=== PATIENT | male | born 1970 | race Hispanic/Latino ===

== ENCOUNTER 2024-03-29 09:32 | Inpatient (IN) | payer OTHER ==
[~2024-03-29] VITALS: Ht 162.6 cm; Wt 61.7 kg
[2024-03-29 10:14] LABS: BASOPHILS # (AUTO) 0.05 K/uL (0.00-0.20); BASOPHILS % (AUTO) 0.4 % (0.0-5.0); EOSINOPHILS # (AUTO) 0.08 K/uL (0.00-0.70); EOSINOPHILS % (AUTO) 0.7 % (0.0-8.0); HEMATOCRIT 35.8 % (42-54); IMMATURE GRANULOCYTE ABSOLUTE 0.05 K/uL (0-1); MEAN CORPUSCULAR HEMOGLOBIN 30.3 pg (27.0-33.0); MEAN CORPUSCULAR HGB CONC 33.8 g/dL (32.0-36.0); MEAN CORPUSCULAR VOLUME 89.5 fL (79-99); MONOCYTES % (AUTO) 8.4 % (3.0-13.0); NEUTROPHILS # (AUTO) 9.8 K/uL (1.8-7.7); NEUTROPHILS % (AUTO) 82.1 % (40.0-77.0); PLATELET COUNT (AUTO) 298 K/uL (130-400); RED CELL DISTRIBUTION WIDTH 12.1 % (11.0-15.5)
[2024-03-29] MEDS: CEFTRIAXONE 1G VIAL IVPB ONE (10:20)
[2024-03-29] MEDS: VANCOMYCIN 1G/250ML KIT 250 ML IV ONE (10:20)
[2024-03-29] MEDS: 0.9%NACL 1000ML 1,500 ML IV ONE (10:21)
[2024-03-29 10:31] LABS: CREATININE 1.1 mg/dL (0.5-1.3); POTASSIUM 4.1 mmol/L (3.5-5.1)
[2024-03-29 10:36] LABS: ALBUMIN 2.9 g/dL (3.5-5.0); BILIRUBIN,TOTAL 0.5 mg/dL (0.2-1.0); TOTAL PROTEIN, SERUM 7.9 g/dL (6.0-8.3)
[2024-03-29 10:53] LABS: APPEARANCE,URINE CLEAR (CLEAR); BILIRUBIN,URINE NEGATIVE (NEGATIVE); COLOR,URINE LIGHT-YELLOW (YELLOW); GLUCOSE, URINE (UA) >=1000 mg/dL (NEGATIVE); KETONES,URINE 5 mg/dL (NEGATIVE); LEUKOCYTE ESTERASE ,URINE NEGATIVE Leu/uL (NEGATIVE); NITRATE,URINE NEGATIVE (NEGATIVE); OCCULT BLOOD,URINE NEGATIVE (NEGATIVE); PH,URINE 6.5 (5.0-8.0); PROTEIN,URINE 10 mg/dL (NEGATIVE); UROBILINOGEN,URINE 0.2 mg/dL (0.2-1.0)
[2024-03-29 10:54] LABS: ADD UA MICROSCOPIC YES
[2024-03-29 11:02] LABS: RBC,URINE 0-1 /HPF (0-1); SQUAMOUS EPITHELIAL CELL,UR RARE /HPF (0-2); WBC,URINE 0-1 /HPF (0-1)
[2024-03-29] MEDS: TETANUS/DIPHTHERIA TOXOID [ADULT] 0.5 ML VIAL IM ONE (11:11)
[2024-03-29] MEDS: INSULIN GLARGINE 100 UNITS/ML 10 ML VIAL SQ ONE (11:22)
[2024-03-29] MEDS ORDERED: ACETAMINOPHEN WITH CODEINE 1 TAB TAB PO PRN (11:30)
[2024-03-29] MEDS ORDERED: CHLORDIAZEPOXIDE HCL 25 MG CAP PO PRN (11:30)
[2024-03-29] MEDS ORDERED: VANCOMYCIN PROTOCOL PER PHARMACY IV SCH ×2 (11:30)
[2024-03-29] MEDS ORDERED: PHARMACY COMMUNICATION MISC PRN (11:30)
[2024-03-29] MEDS ORDERED: ONDANSETRON 4MG INJ IVP PRN (12:30)
[2024-03-29 12:32] LABS: INR 1.01 (0.85-1.15); PROTHROMBIN TIME 10.9 SEC (9.6-11.6)
[2024-03-29 12:34] LABS: PARTIAL THROMBOPLASTIN TIME 29.5 SEC (26.3-35.5)
[2024-03-29] MEDS: CEFEPIME HCL 2 GM VIAL IVPB SCH (12:35)
[2024-03-29] MEDS: 0.9%NACL 1000ML 1,000 ML IV SCH (12:35)
[2024-03-29] MEDS: INSULIN HUMULIN R 100 UNIT/ML 3ML SQ SCH (12:36)
[2024-03-29 12:54] LABS: THYROID STIMULATING HORMONE 4.35 uIU/mL (0.36-3.74)
[2024-03-29] MEDS ORDERED: HYDRALAZINE 20MG/ML VIAL IV PRN (13:00)
[2024-03-29 13:20] LABS: HEMOGLOBIN A1C 9.7 % (4.0-6.0)
[2024-03-29] MEDS: LORAZEPAM 2 MG/ML 1 ML VIAL IVP PRN (13:26)
[2024-03-29 13:56] LABS: AMPHET/METH SCREEN,URINE NEGATIVE (NEGATIVE); BARBITURATE SCREEN, URINE NEGATIVE (NEGATIVE); BENZODIAZEPINES SCREEN,URINE NEGATIVE (NEGATIVE); CANNABINOID SCREEN,URINE NEGATIVE (NEGATIVE); COCAINE SCREEN,URINE NEGATIVE (NEGATIVE); OPIATE SCREEN,URINE NEGATIVE (NEGATIVE); PHENCYCLIDINE SCREEN,URINE NEGATIVE (NEGATIVE)
[2024-03-29 14:00] VITALS: BP 143/85; PULSE 77; RESP 18
[2024-03-29] MEDS: METRONIDAZOLE 500MG/100ML BAG 100 ML IVPB SCH (14:58)
[2024-03-29 16:00] VITALS: BP 154/63; PULSE 85; RESP 18
[2024-03-29] MEDS: AMLODIPINE 5 MG TAB PO SCH (17:21)
[2024-03-29 17:47] LABS: SARS-CoV-2, RNA, NAAT NEGATIVE SARS CoV-2 (NEGATIVE)
[2024-03-29 17:52] LABS: INFLUENZA TYPE A Negative For Type A (NEGATIVE); INFLUENZA TYPE B Negative For Type B (NEGATIVE)
[2024-03-29 18:35] VITALS: O2SAT 96
[2024-03-29 20:00] VITALS: BP 123/69; PULSE 73; RESP 19; O2SAT 96
[2024-03-29] MEDS: FAMOTIDINE 20MG TAB PO SCH (20:11)
[2024-03-29] MEDS: ACETAMINOPHEN 500 MG TABLET PO PRN (20:12)
[2024-03-29] MEDS: VANCOMYCIN 1G/250ML KIT 250 ML IV SCH (22:06)
[2024-03-29] MEDS: KETOROLAC 15MG/ML VIAL (15MG/ML) IV PRN (23:50)
[2024-03-30] VITALS (8 sets, daily range): BP systolic 114–142; BP diastolic 61–85; PULSE 61–84; RESP 14–19; O2SAT 98
[2024-03-30] MEDS: FOLIC ACID 1 MG TABLET PO SCH (08:38)
[2024-03-30] MEDS: INSULIN GLARGINE 100 UNITS/ML 10 ML VIAL SQ SCH (08:44)
[2024-03-30 09:34] LABS: BASOPHILS # (AUTO) 0.05 K/uL (0.00-0.20); BASOPHILS % (AUTO) 0.5 % (0.0-5.0); EOSINOPHILS # (AUTO) 0.13 K/uL (0.00-0.70); EOSINOPHILS % (AUTO) 1.4 % (0.0-8.0); HEMATOCRIT 34.7 % (42-54); IMMATURE GRANULOCYTE ABSOLUTE 0.04 K/uL (0-1); LYMPHOCYTES % (AUTO) 10.6 % (21.0-51.0); MEAN CORPUSCULAR HGB CONC 32.6 g/dL (32.0-36.0); MONOCYTES # (AUTO) 1.2 K/uL (0.1-1.0); MONOCYTES % (AUTO) 12.4 % (3.0-13.0); NEUTROPHILS # (AUTO) 7.1 K/uL (1.8-7.7); NEUTROPHILS % (AUTO) 74.7 % (40.0-77.0); PLATELET COUNT (AUTO) 257 K/uL (130-400); RED BLOOD CELL COUNT(AUTO) 3.77 MIL/uL (4.50-6.20); RED CELL DISTRIBUTION WIDTH 12.2 % (11.0-15.5); WHITE BLOOD COUNT (AUTO) 9.5 K/uL (4.8-10.8)
[2024-03-30 09:56] LABS: ALBUMIN 2.4 g/dL (3.5-5.0); BILIRUBIN,TOTAL 0.3 mg/dL (0.2-1.0); MAGNESIUM 1.5 mg/dL (1.80-2.40); POTASSIUM 4.1 mmol/L (3.5-5.1)
[2024-03-30] MEDS: MORPHINE 2 MG SYG IVP PRN (14:49)
[2024-03-30] MEDS: ACETAMINOPHEN 325 MG TAB PO PRN (21:00)
[2024-03-31] VITALS (23 sets, daily range): BP systolic 99–151; BP diastolic 45–88; PULSE 68–98; RESP 16–19; O2SAT 97–98
[2024-03-31 04:37] LABS: BASOPHILS # (AUTO) 0.06 K/uL (0.00-0.20); BASOPHILS % (AUTO) 0.5 % (0.0-5.0); EOSINOPHILS # (AUTO) 0.13 K/uL (0.00-0.70); EOSINOPHILS % (AUTO) 1.2 % (0.0-8.0); HEMATOCRIT 34.5 % (42-54); IMMATURE GRANULOCYTE ABSOLUTE 0.04 K/uL (0-1); LYMPHOCYTES # (AUTO) 1.3 K/uL (1.0-4.8); LYMPHOCYTES % (AUTO) 11.9 % (21.0-51.0); MEAN CORPUSCULAR HGB CONC 32.8 g/dL (32.0-36.0); MEAN CORPUSCULAR VOLUME 88.7 fL (79-99); MONOCYTES # (AUTO) 1.7 K/uL (0.1-1.0); NEUTROPHILS # (AUTO) 7.9 K/uL (1.8-7.7); PLATELET COUNT (AUTO) 299 K/uL (130-400); RED BLOOD CELL COUNT(AUTO) 3.89 MIL/uL (4.50-6.20); RED CELL DISTRIBUTION WIDTH 12.2 % (11.0-15.5); WHITE BLOOD COUNT (AUTO) 11.1 K/uL (4.8-10.8)
[2024-03-31 04:46] LABS: INR 1.07 (0.85-1.15); PROTHROMBIN TIME 11.5 SEC (9.6-11.6)
[2024-03-31 04:47] LABS: MAGNESIUM 1.5 mg/dL (1.80-2.40); PHOSPHORUS 3.8 mg/dL (2.5-4.9); POTASSIUM 3.7 mmol/L (3.5-5.1)
[2024-03-31] MEDS: DEXTROSE 50%-WATER 50 ML DISP.SYRIN IV ONE (05:57)
[2024-03-31] MEDS ORDERED: GLUCAGON 1MG KIT 1 MG ML IM PRN (06:00)
[2024-03-31] MEDS: DEXTROSE 50%-WATER 50 ML DISP.SYRIN IV PRN (12:41)
[2024-03-31] MEDS: 0.9%NACL 1000ML 1,000 ML IV ONE (12:41)
[2024-03-31] MEDS ORDERED: LIDOCAINE HCL 1% 20 ML VIAL ONE (12:52)
[2024-03-31] MEDS ORDERED: FENTANYL CITRATE PF 50 MCG/1 ML 2ML VIAL ONE ×2 (12:52→13:13)
[2024-03-31] MEDS ORDERED: MIDAZOLAM HCL 1 MG/ML 2ML VIAL ONE (12:52)
[2024-03-31] MEDS ORDERED: BUPIVACAINE/PF 0.25% 30ML VIAL IJ ONE (12:52)
[2024-03-31] MEDS ORDERED: PROPOFOL 10 MG/ML 20ML VIAL IV ONE (12:53)
[2024-03-31] MEDS: LIDOCAINE HCL 1% 20 ML VIAL INJ ONE (13:08)
[2024-04-01] VITALS (7 sets, daily range): BP systolic 125–132; BP diastolic 66–77; PULSE 75–83; RESP 18–20; O2SAT 97–99
[2024-04-01 05:47] LABS: BASOPHILS # (AUTO) 0.06 K/uL (0.00-0.20); BASOPHILS % (AUTO) 0.5 % (0.0-5.0); EOSINOPHILS % (AUTO) 1.8 % (0.0-8.0); HEMATOCRIT 31.3 % (42-54); IMMATURE GRANULOCYTE ABSOLUTE 0.05 K/uL (0-1); LYMPHOCYTES # (AUTO) 1.3 K/uL (1.0-4.8); LYMPHOCYTES % (AUTO) 11.2 % (21.0-51.0); MEAN CORPUSCULAR HEMOGLOBIN 29.6 pg (27.0-33.0); MEAN CORPUSCULAR HGB CONC 33.2 g/dL (32.0-36.0); MEAN CORPUSCULAR VOLUME 89.2 fL (79-99); MONOCYTES # (AUTO) 1.9 K/uL (0.1-1.0); NEUTROPHILS # (AUTO) 7.8 K/uL (1.8-7.7); NEUTROPHILS % (AUTO) 69.1 % (40.0-77.0); PLATELET COUNT (AUTO) 288 K/uL (130-400); RED BLOOD CELL COUNT(AUTO) 3.51 MIL/uL (4.50-6.20); RED CELL DISTRIBUTION WIDTH 12.4 % (11.0-15.5); WHITE BLOOD COUNT (AUTO) 11.3 K/uL (4.8-10.8)
[2024-04-01 06:30] LABS: ALBUMIN 2.2 g/dL (3.5-5.0); BILIRUBIN,TOTAL 0.3 mg/dL (0.2-1.0); MAGNESIUM 1.5 mg/dL (1.80-2.40); POTASSIUM 3.6 mmol/L (3.5-5.1); TOTAL PROTEIN, SERUM 6.7 g/dL (6.0-8.3)
[2024-04-01] MEDS ORDERED: MAGNESIUM 2GM PREMIX 50ML 50 ML IV SCH (09:30)
[2024-04-01] MEDS: MAGNESIUM 2GM PREMIX 50ML 50 ML IV SCH (11:34)
[2024-04-01] MEDS: LEVOFLOXACIN 750 MG TABLET PO SCH (14:26)
[2024-04-01] MEDS ORDERED: POTASSIUM CHLORIDE 20MEQ/100ML 100 ML IV PRN (17:00)
[2024-04-01] MEDS ORDERED: POTASSIUM CHLORIDE 10% ELIXIR 20 MEQ/15 ML UDCUP PO PRN (17:00)
[2024-04-01] MEDS: KCL 20 MEQ ERTAB PO PRN (17:28)
[2024-04-01] MEDS ORDERED: VANCOMYCIN 1G/250ML KIT 250 ML IV SCH (22:00)
[2024-04-02] VITALS (17 sets, daily range): BP systolic 104–142; BP diastolic 67–90; PULSE 71–87; RESP 16–20; TEMP 99.1; O2SAT 98–99
[2024-04-02] MEDS: VANCOMYCIN 1G/250ML KIT 250 ML IV ONE ×2 (00:16→00:21)
[2024-04-02] MEDS ORDERED: VANCOMYCIN KIT 1 GM/250 ML IV.KIT IV SCH (00:30)
[2024-04-02 05:35] LABS: BASOPHILS # (AUTO) 0.06 K/uL (0.00-0.20); BASOPHILS % (AUTO) 0.5 % (0.0-5.0); EOSINOPHILS # (AUTO) 0.16 K/uL (0.00-0.70); EOSINOPHILS % (AUTO) 1.3 % (0.0-8.0); IMMATURE GRANULOCYTE ABSOLUTE 0.07 K/uL (0-1); LYMPHOCYTES % (AUTO) 7.7 % (21.0-51.0); MEAN CORPUSCULAR HEMOGLOBIN 29.9 pg (27.0-33.0); MEAN CORPUSCULAR VOLUME 90.7 fL (79-99); MONOCYTES # (AUTO) 1.3 K/uL (0.1-1.0); MONOCYTES % (AUTO) 10.6 % (3.0-13.0); NEUTROPHILS # (AUTO) 9.8 K/uL (1.8-7.7); NEUTROPHILS % (AUTO) 79.3 % (40.0-77.0); PLATELET COUNT (AUTO) 312 K/uL (130-400); RED BLOOD CELL COUNT(AUTO) 3.64 MIL/uL (4.50-6.20); RED CELL DISTRIBUTION WIDTH 12.4 % (11.0-15.5); WHITE BLOOD COUNT (AUTO) 12.4 K/uL (4.8-10.8)
[2024-04-02 06:02] LABS: ALBUMIN 2.3 g/dL (3.5-5.0); BILIRUBIN,TOTAL 0.3 mg/dL (0.2-1.0); CREATININE 0.9 mg/dL (0.5-1.3); MAGNESIUM 1.9 mg/dL (1.80-2.40); POTASSIUM 3.9 mmol/L (3.5-5.1); TOTAL PROTEIN, SERUM 7.3 g/dL (6.0-8.3)
[2024-04-02] MEDS: ASPIRIN 81MG CHEW TAB PO ONE (10:56)
[2024-04-02] MEDS: INSULIN GLARGINE 100 UNITS/ML 10 ML VIAL SQ ONE (11:00)
[2024-04-02] MEDS ORDERED: LIDOCAINE HCL 400MG/20ML VIAL ONE (12:14)
[2024-04-02] MEDS ORDERED: NITROGLYCERIN 50MG VIAL ONE (12:15)
[2024-04-02] MEDS ORDERED: MIDAZOLAM HCL 1 MG/ML 2ML VIAL ONE (12:15)
[2024-04-02] MEDS ORDERED: IODIXANOL 320 MG/ML 100 ML VIAL ONE (12:20)
[2024-04-02] MEDS ORDERED: NICARDIPINE 25MG INJ IV ONE (12:25)
[2024-04-02] MEDS ORDERED: HEPARIN 10,000 UNIT/10ML (1,000 UNIT/ML) VIAL ONE (12:28)
[2024-04-02] MEDS ORDERED: FENTANYL CITRATE PF 50 MCG/1 ML 2ML VIAL ONE (12:31)
[2024-04-02] MEDS ORDERED: CLOPIDOGREL 300MG TAB ONE (13:47)
[2024-04-02] MEDS ORDERED: GLUCAGON 1MG KIT 1 MG ML IM PRN (14:00)
[2024-04-02] MEDS ORDERED: DEXTROSE 50%-WATER 50 ML DISP.SYRIN IV PRN (14:00)
[2024-04-02] MEDS: 0.9%NACL 1000ML 1,000 ML IV SCH (14:50)
[2024-04-02] MEDS: METRONIDAZOLE 500 MG TABLET PO SCH (14:57)
[2024-04-02] MEDS: LACTULOSE 20 GM/30 ML UDCUP PO ONE (18:32)
[2024-04-02] MEDS: ATORVASTATIN 40 MG TABLET PO SCH (20:10)
[2024-04-03] VITALS (8 sets, daily range): BP systolic 110–146; BP diastolic 53–81; PULSE 72–79; RESP 12–16; O2SAT 99–100
[2024-04-03 05:38] LABS: HEMATOCRIT 31.5 % (42-54); MEAN CORPUSCULAR HGB CONC 33.7 g/dL (32.0-36.0); MEAN CORPUSCULAR VOLUME 89.2 fL (79-99); RED BLOOD CELL COUNT(AUTO) 3.53 MIL/uL (4.50-6.20); RED CELL DISTRIBUTION WIDTH 12.5 % (11.0-15.5); WHITE BLOOD COUNT (AUTO) 16.9 K/uL (4.8-10.8)
[2024-04-03 05:56] LABS: ALBUMIN 2.2 g/dL (3.5-5.0); BILIRUBIN,TOTAL 0.4 mg/dL (0.2-1.0); MAGNESIUM 1.9 mg/dL (1.80-2.40); POTASSIUM 3.8 mmol/L (3.5-5.1); TOTAL PROTEIN, SERUM 7.2 g/dL (6.0-8.3)
[2024-04-03] MEDS: ASPIRIN 81MG CHEW TAB PO SCH (09:16)
[2024-04-03] MEDS: CLOPIDOGREL 75MG TAB PO SCH (09:16)
[2024-04-03] MEDS: INSULIN GLARGINE 100 UNITS/ML 10 ML VIAL SQ SCH (09:22)
[2024-04-03] MEDS: MAGNESIUM 2GM PREMIX 50ML 50 ML IV SCH (10:13)
[2024-04-04 03:00] VITALS: BP 103/58; PULSE 67; RESP 14
[2024-04-04 04:06] LABS: HEMATOCRIT 32.5 % (42-54); MEAN CORPUSCULAR HEMOGLOBIN 29.4 pg (27.0-33.0); MEAN CORPUSCULAR HGB CONC 34.2 g/dL (32.0-36.0); MEAN CORPUSCULAR VOLUME 86.2 fL (79-99); RED BLOOD CELL COUNT(AUTO) 3.77 MIL/uL (4.50-6.20); RED CELL DISTRIBUTION WIDTH 12.4 % (11.0-15.5); WHITE BLOOD COUNT (AUTO) 13.7 K/uL (4.8-10.8)
[2024-04-04 04:26] LABS: ALBUMIN 2.3 g/dL (3.5-5.0); BILIRUBIN,TOTAL 0.3 mg/dL (0.2-1.0); POTASSIUM 4.3 mmol/L (3.5-5.1); TOTAL PROTEIN, SERUM 7.5 g/dL (6.0-8.3)
[2024-04-04 07:30] VITALS: O2SAT 98
[2024-04-04 07:52] VITALS: BP 109/70; PULSE 74; RESP 18
[2024-04-04 11:18] VITALS: BP 93/68; PULSE 84; RESP 19
[2024-04-04] MEDS ORDERED: AMLO5TAB4 PO (12:25)
[2024-04-04] MEDS ORDERED: ASPI-1005 PO (12:25)
[2024-04-04] MEDS ORDERED: ATOR40TA69 PO (12:25)
[2024-04-04] MEDS ORDERED: CLOP-31 PO (12:25)
[2024-04-04] MEDS ORDERED: GLIP-162 PO (12:26)
[2024-04-04] MEDS ORDERED: METF-444 PO (12:26)
== END 2024-04-04 16:45 | disposition home or self-care (01) | DRG 279 ==
LOC: EDH 09:32 → EDHIP 11:12 → UNDOADMIN 11:12 → EDHIP 11:13 → 3CH 14:00 → EDHIP 14:00
PROVIDERS: ADMIT Internal Medicine; ATTEND Internal Medicine
PROC: B41D1ZZ Fluoroscopy of Aorta and Bilateral Lower Extremity Arteries using Low Osmolar Contrast (ICD-10-PCS; 2024-03-31)
PROC: 0Y6V0Z0 Detachment at Right 4th Toe, Complete, Open Approach (ICD-10-PCS; principal; 2024-03-31 13:03)
PROC: 04FP3ZZ Fragmentation of Right Anterior Tibial Artery, Percutaneous Approach (ICD-10-PCS; 2024-04-02)
PROC: 047P3ZZ Dilation of Right Anterior Tibial Artery, Percutaneous Approach (ICD-10-PCS; 2024-04-02)
DX: E11.52 Type 2 diabetes mellitus with diabetic peripheral angiopathy with gangrene (principal); E87.1 Hypo-osmolality and hyponatremia; M86.8X7 Other osteomyelitis, ankle and foot; L03.115 Cellulitis of right lower limb; I96 Gangrene, not elsewhere classified; L03.031 Cellulitis of right toe; Z20.822 Contact with and (suspected) exposure to COVID-19; E11.65 Type 2 diabetes mellitus with hyperglycemia; I10 Essential (primary) hypertension; E11.621 Type 2 diabetes mellitus with foot ulcer; E11.628 Type 2 diabetes mellitus with other skin complications; E78.5 Hyperlipidemia, unspecified; E83.42 Hypomagnesemia; E87.6 Hypokalemia; F10.10 Alcohol abuse, uncomplicated; L97.519 Non-pressure chronic ulcer of other part of right foot with unspecified severity; Z83.3 Family history of diabetes mellitus; Z87.891 Personal history of nicotine dependence; Z91.199 Patient's noncompliance with other medical treatment and regimen due to unspecified reason
CPT/HCPCS: 36415; 71045; 73660; 73718; 75716; 75774; 80048; 80053; 80061; 80202; 80305; 81001; 82010; 82550; 82948; 83036; 83605; 83735; 84100; 84145; 84443; 85025; 85027; 85610; 85651; 85730; 86140; 87040; 87070; 87076; 87086; 87186; 87205; 87635; 87804; 90471; 90714; 93926; 96365; 96372; 99156; 99157; C1760; C1769; C1893; C1894; C9772; G0378; J0692; J0696; J1644; J1815; J1885; J2060; J2250; J2270; J2704; J3010; J3370; J3475; J3490; J7030; J7070; Q9967; A4216; A4222; A4223; A4649; A6446; C1725; C1887; J0665

== ENCOUNTER 2024-04-21 10:31 | Inpatient (IN) | payer OTHER ==
[~2024-04-21] VITALS: Ht 160 cm; Wt 63.5 kg
[~2024-04-21 10:31] MED LIST: AMLO5TAB4 PO; ASPI-1005 PO; ATOR40TA69 PO; CLOP-31 PO; GLIP-162 PO; METF-444 PO
[2024-04-21 11:55] LABS: BASOPHILS # (AUTO) 0.01 K/uL (0.00-0.20); BASOPHILS % (AUTO) 0.3 % (0.0-5.0); EOSINOPHILS # (AUTO) 0.14 K/uL (0.00-0.70); EOSINOPHILS % (AUTO) 4.4 % (0.0-8.0); HEMATOCRIT 33.2 % (42-54); IMMATURE GRANULOCYTE ABSOLUTE 0.01 K/uL (0-1); LYMPHOCYTES # (AUTO) 1.2 K/uL (1.0-4.8); LYMPHOCYTES % (AUTO) 36.5 % (21.0-51.0); MEAN CORPUSCULAR HGB CONC 34.6 g/dL (32.0-36.0); MEAN CORPUSCULAR VOLUME 83.6 fL (79-99); MONOCYTES # (AUTO) 0.3 K/uL (0.1-1.0); MONOCYTES % (AUTO) 8.5 % (3.0-13.0); NEUTROPHILS # (AUTO) 1.6 K/uL (1.8-7.7); PLATELET COUNT (AUTO) 220 K/uL (130-400); RED BLOOD CELL COUNT(AUTO) 3.97 MIL/uL (4.50-6.20); RED CELL DISTRIBUTION WIDTH 12.3 % (11.0-15.5); WHITE BLOOD COUNT (AUTO) 3.2 K/uL (4.8-10.8)
[2024-04-21 12:07] LABS: BILIRUBIN,TOTAL 0.4 mg/dL (0.2-1.0); POTASSIUM 4.4 mmol/L (3.5-5.1); TOTAL PROTEIN, SERUM 8.4 g/dL (6.0-8.3)
[2024-04-21] MEDS: 0.9%NACL 1000ML 1,707 ML IV ONE (12:17)
[2024-04-21] MEDS: VANCOMYCIN KIT 1 GM/250 ML IV.KIT IV STA (12:17)
[2024-04-21] MEDS ORDERED: VANCOMYCIN PROTOCOL PER PHARMACY IV SCH (13:30)
[2024-04-21] MEDS ORDERED: POTASSIUM CHLORIDE 20MEQ/100ML 100 ML IV PRN (13:30)
[2024-04-21] MEDS ORDERED: POTASSIUM CHLORIDE 10% ELIXIR 20 MEQ/15 ML UDCUP PO PRN (13:30)
[2024-04-21] MEDS ORDERED: KCL 20 MEQ ERTAB PO PRN (13:30)
[2024-04-21] MEDS: INSULIN HUMULIN R 100 UNIT/ML 3ML IV STA (13:44)
[2024-04-21 13:56] LABS: HEMOGLOBIN A1C 11.6 % (4.0-6.0)
[2024-04-21 14:16] VITALS: BP 130/80; PULSE 71; RESP 18
[2024-04-21 14:19] LABS: THYROID STIMULATING HORMONE 3.27 uIU/mL (0.36-3.74)
[2024-04-21] MEDS: 0.9%NACL 1000ML 1,000 ML IV SCH (14:38)
[2024-04-21] MEDS: CEFEPIME HCL 2 GM VIAL IVPB SCH (15:08)
[2024-04-21] MEDS: METRONIDAZOLE 500MG/100ML BAG IV SCH (15:08)
[2024-04-21] MEDS: INSULIN GLARGINE 100 UNITS/ML 10 ML VIAL SQ ONE (15:21)
[2024-04-21 16:00] VITALS: BP 138/73; PULSE 69; RESP 19
[2024-04-21] MEDS ORDERED: ZOSYN 3.375GM +NS 50ML IVPB ONE (16:00)
[2024-04-21] MEDS: INSULIN HUMULIN R 100 UNIT/ML 3ML SQ SCH (16:30)
[2024-04-21] MEDS: ATORVASTATIN 40 MG TABLET PO SCH (19:52)
[2024-04-21] MEDS: FAMOTIDINE 20MG VIAL IV SCH (19:52)
[2024-04-21 20:53] VITALS: O2SAT 100
[2024-04-21 20:57] VITALS: BP 121/74; PULSE 76; RESP 18
[2024-04-21] MEDS: VANCOMYCIN 750MG VIAL IVPB SCH (23:22)
[2024-04-22] VITALS (8 sets, daily range): BP systolic 104–151; BP diastolic 70–80; PULSE 59–67; RESP 16–18; O2SAT 99–100
[2024-04-22 06:46] LABS: BASOPHILS # (AUTO) 0.02 K/uL (0.00-0.20); BASOPHILS % (AUTO) 0.5 % (0.0-5.0); EOSINOPHILS # (AUTO) 0.26 K/uL (0.00-0.70); EOSINOPHILS % (AUTO) 7.1 % (0.0-8.0); HEMATOCRIT 31.7 % (42-54); IMMATURE GRANULOCYTE ABSOLUTE 0.01 K/uL (0-1); LYMPHOCYTES # (AUTO) 1.5 K/uL (1.0-4.8); LYMPHOCYTES % (AUTO) 39.7 % (21.0-51.0); MEAN CORPUSCULAR HEMOGLOBIN 28.7 pg (27.0-33.0); MEAN CORPUSCULAR HGB CONC 34.4 g/dL (32.0-36.0); MEAN CORPUSCULAR VOLUME 83.4 fL (79-99); MONOCYTES # (AUTO) 0.3 K/uL (0.1-1.0); MONOCYTES % (AUTO) 9.2 % (3.0-13.0); NEUTROPHILS # (AUTO) 1.6 K/uL (1.8-7.7); NEUTROPHILS % (AUTO) 43.2 % (40.0-77.0); PLATELET COUNT (AUTO) 195 K/uL (130-400); RED CELL DISTRIBUTION WIDTH 12.3 % (11.0-15.5); WHITE BLOOD COUNT (AUTO) 3.7 K/uL (4.8-10.8)
[2024-04-22 06:52] LABS: CREATININE 0.9 mg/dL (0.5-1.3); POTASSIUM 4.1 mmol/L (3.5-5.1)
[2024-04-22] MEDS: ENOXAPARIN SODIUM 30 MG/0.3 ML SQ SCH (08:45)
[2024-04-22] MEDS: ASPIRIN 81MG CHEW TAB PO SCH (08:45)
[2024-04-22] MEDS: AMLODIPINE 5 MG TAB PO SCH (08:45)
[2024-04-22] MEDS: CLOPIDOGREL 75MG TAB PO SCH (08:45)
[2024-04-22] MEDS: INSULIN GLARGINE 100 UNITS/ML 10 ML VIAL SQ SCH (08:52)
[2024-04-22] MEDS ORDERED: ONDANSETRON 4MG INJ IVP PRN (10:00)
[2024-04-22] MEDS ORDERED: LACTULOSE 20 GM/30 ML UDCUP PO PRN (10:00)
[2024-04-22] MEDS ORDERED: ACETAMINOPHEN 325 MG TAB PO PRN (10:00)
[2024-04-23] VITALS (22 sets, daily range): BP systolic 102–148; BP diastolic 67–90; PULSE 55–78; RESP 15–18; O2SAT 96–99
[2024-04-23 04:47] LABS: BASOPHILS # (AUTO) 0.03 K/uL (0.00-0.20); BASOPHILS % (AUTO) 0.7 % (0.0-5.0); EOSINOPHILS % (AUTO) 6.9 % (0.0-8.0); HEMATOCRIT 29.3 % (42-54); IMMATURE GRANULOCYTE ABSOLUTE 0.01 K/uL (0-1); LYMPHOCYTES # (AUTO) 1.3 K/uL (1.0-4.8); MEAN CORPUSCULAR HEMOGLOBIN 29.1 pg (27.0-33.0); MEAN CORPUSCULAR HGB CONC 34.1 g/dL (32.0-36.0); MEAN CORPUSCULAR VOLUME 85.2 fL (79-99); MONOCYTES # (AUTO) 0.4 K/uL (0.1-1.0); MONOCYTES % (AUTO) 9.7 % (3.0-13.0); NEUTROPHILS # (AUTO) 2.2 K/uL (1.8-7.7); NEUTROPHILS % (AUTO) 51.5 % (40.0-77.0); PLATELET COUNT (AUTO) 191 K/uL (130-400); RED BLOOD CELL COUNT(AUTO) 3.44 MIL/uL (4.50-6.20); RED CELL DISTRIBUTION WIDTH 12.3 % (11.0-15.5); WHITE BLOOD COUNT (AUTO) 4.3 K/uL (4.8-10.8)
[2024-04-23 05:05] LABS: ALBUMIN 2.5 g/dL (3.5-5.0); BILIRUBIN,TOTAL 0.2 mg/dL (0.2-1.0); CREATININE 0.9 mg/dL (0.5-1.3); MAGNESIUM 1.4 mg/dL (1.80-2.40); POTASSIUM 3.6 mmol/L (3.5-5.1)
[2024-04-23] MEDS: MAGNESIUM 2GM PREMIX 50ML 50 ML IV PRN (06:14)
[2024-04-23] MEDS ORDERED: FENTANYL CITRATE PF 50 MCG/1 ML 2ML VIAL ONE ×2 (06:52→07:28)
[2024-04-23] MEDS ORDERED: MIDAZOLAM HCL 1 MG/ML 2ML VIAL ONE (06:52)
[2024-04-23] MEDS ORDERED: PROPOFOL 10 MG/ML 20ML VIAL IV ONE ×2 (06:52→07:20)
[2024-04-23] MEDS: LIDOCAINE HCL 1% 20 ML VIAL ONE (07:08)
[2024-04-23] MEDS: BUPIVACAINE/PF 0.5% 30ML VIAL ONE (07:08)
[2024-04-23] MEDS ORDERED: ONDANSETRON 4MG INJ ONE (07:28)
[2024-04-23] MEDS ORDERED: MORPHINE 2 MG SYG IVP PRN (08:30)
[2024-04-23] MEDS: 0.9%NACL 1000ML 1,000 ML IV ONE (09:38)
[2024-04-23] MEDS: VANCOMYCIN 1G/250ML KIT 250 ML IV SCH (12:22)
[2024-04-23] MEDS: ACETAMINOPHEN WITH CODEINE 1 TAB TAB PO PRN (17:15)
[2024-04-24 00:19] VITALS: BP 102/64; PULSE 62; RESP 18
[2024-04-24 03:59] VITALS: BP 119/68; PULSE 77; RESP 18
[2024-04-24 04:23] LABS: BASOPHILS # (AUTO) 0.03 K/uL (0.00-0.20); BASOPHILS % (AUTO) 0.5 % (0.0-5.0); EOSINOPHILS # (AUTO) 0.23 K/uL (0.00-0.70); EOSINOPHILS % (AUTO) 3.9 % (0.0-8.0); HEMATOCRIT 29.8 % (42-54); IMMATURE GRANULOCYTE ABSOLUTE 0.01 K/uL (0-1); LYMPHOCYTES # (AUTO) 1.4 K/uL (1.0-4.8); LYMPHOCYTES % (AUTO) 22.9 % (21.0-51.0); MEAN CORPUSCULAR HEMOGLOBIN 28.6 pg (27.0-33.0); MEAN CORPUSCULAR HGB CONC 34.6 g/dL (32.0-36.0); MEAN CORPUSCULAR VOLUME 82.8 fL (79-99); MONOCYTES # (AUTO) 0.7 K/uL (0.1-1.0); MONOCYTES % (AUTO) 11.8 % (3.0-13.0); NEUTROPHILS # (AUTO) 3.6 K/uL (1.8-7.7); NEUTROPHILS % (AUTO) 60.7 % (40.0-77.0); PLATELET COUNT (AUTO) 191 K/uL (130-400); RED CELL DISTRIBUTION WIDTH 12.3 % (11.0-15.5); WHITE BLOOD COUNT (AUTO) 5.9 K/uL (4.8-10.8)
[2024-04-24 04:44] LABS: ALBUMIN 2.5 g/dL (3.5-5.0); BILIRUBIN,TOTAL 0.4 mg/dL (0.2-1.0); CREATININE 0.9 mg/dL (0.5-1.3); MAGNESIUM 1.4 mg/dL (1.80-2.40); POTASSIUM 3.7 mmol/L (3.5-5.1)
[2024-04-24 07:44] VITALS: BP 127/68; PULSE 70; RESP 16
[2024-04-24 08:00] VITALS: O2SAT 99
== END 2024-04-24 12:20 | disposition home or self-care (01) | DRG 854 ==
LOC: EDH 10:31 → EDHIP 10:32 → 4BH 14:16
PROVIDERS: ADMIT Internal Medicine; ATTEND Internal Medicine
PROC: 0QBN0ZZ Excision of Right Metatarsal, Open Approach (ICD-10-PCS; principal; 2024-04-23 07:00)
DX: A41.9 Sepsis, unspecified organism (principal); E44.0 Moderate protein-calorie malnutrition; T81.31XA Disruption of external operation (surgical) wound, not elsewhere classified, initial encounter; L03.115 Cellulitis of right lower limb; E87.20 Acidosis, unspecified; M86.171 Other acute osteomyelitis, right ankle and foot; E87.1 Hypo-osmolality and hyponatremia; L02.611 Cutaneous abscess of right foot; T87.43 Infection of amputation stump, right lower extremity; E11.65 Type 2 diabetes mellitus with hyperglycemia; E11.69 Type 2 diabetes mellitus with other specified complication; B96.5 Pseudomonas (aeruginosa) (mallei) (pseudomallei) as the cause of diseases classified elsewhere; D64.9 Anemia, unspecified; I10 Essential (primary) hypertension; S91.331A Puncture wound without foreign body, right foot, initial encounter; I25.10 Atherosclerotic heart disease of native coronary artery without angina pectoris; Y83.5 Amputation of limb(s) as the cause of abnormal reaction of the patient, or of later complication, without mention of misadventure at the time of the procedure; Z89.429 Acquired absence of other toe(s), unspecified side; Y92.89 Other specified places as the place of occurrence of the external cause
CPT/HCPCS: 36415; 73630; 80048; 80053; 80202; 82010; 82306; 82607; 82948; 83036; 83605; 83735; 84145; 84443; 85025; 86140; 87040; 87070; 87076; 87086; 87186; 87205; 96372; 96375; A6266; G0378; J0692; J1650; J1815; J2250; J2405; J2704; J3010; J3370; J3475; J3490; J7030; A4216; A4222; A4223; A4930; A6446; J0665

== ENCOUNTER 2025-01-14 18:27 | Inpatient (IN) | payer SELFPAY ==
[~2025-01-14] VITALS: Ht 152.4 cm; Wt 70.6 kg
[~2025-01-14 18:27] MED LIST changes: -GLIP-162 PO; +GLIP-300 PO
--- NOTE | 2025-01-14 18:54 | EKG ---
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
[2025-01-14] MEDS ORDERED: VANCOMYCIN PROTOCOL PER PHARMACY IV SCH (19:00)
[2025-01-14] MEDS: [UNRECOGNIZED DRUG - OTHER] IV ONE (19:17)
[2025-01-14] MEDS: ZOSYN 3.375GM +NS 50ML IV ONE (19:17)
[2025-01-14 19:18] VITALS: TEMP 101.8
[2025-01-14] MEDS: acetaMINOPHEN 500 MG TABLET PO ONE (19:18)
[2025-01-14 19:27] LABS: BASOPHILS # (AUTO) 0.06 K/uL (0.00-0.20); BASOPHILS % (AUTO) 0.6 % (0.0-5.0); EOSINOPHILS # (AUTO) 0.08 K/uL (0.00-0.70); EOSINOPHILS % (AUTO) 0.8 % (0.0-8.0); HEMATOCRIT 35.5 % (42-54); IMMATURE GRANULOCYTE ABSOLUTE 0.04 K/uL (0-1); LYMPHOCYTES % (AUTO) 10.3 % (21.0-51.0); MEAN CORPUSCULAR HEMOGLOBIN 30.2 pg (27.0-33.0); MEAN CORPUSCULAR HGB CONC 33.8 g/dL (32.0-36.0); MEAN CORPUSCULAR VOLUME 89.4 fL (79-99); MONOCYTES # (AUTO) 1.3 K/uL (0.1-1.0); MONOCYTES % (AUTO) 13.3 % (3.0-13.0); NEUTROPHILS # (AUTO) 7.3 K/uL (1.8-7.7); NEUTROPHILS % (AUTO) 74.6 % (40.0-77.0); PLATELET COUNT (AUTO) 206 K/uL (130-400); RED BLOOD CELL COUNT(AUTO) 3.97 MIL/uL (4.50-6.20); RED CELL DISTRIBUTION WIDTH 13.3 % (11.0-15.5); WHITE BLOOD COUNT (AUTO) 9.8 K/uL (4.8-10.8)
[2025-01-14 19:34] LABS: CREATININE 1.3 mg/dL (0.5-1.3); POTASSIUM 3.8 mmol/L (3.5-5.1)
--- NOTE | 2025-01-14 19:38 | HMCIMG ---
CHEST 1VW HISTORY: Right third toe osteo COMPARISON: 03/29/2024 FINDINGS: A frontal projection of the chest was obtained. No acute pulmonary infiltrates is seen. The heart is borderline enlarged. Prominent interstitial markings are seen. Mild degenerative changes are seen. IMPRESSION: 1. No acute pulmonary infiltrate is seen.
--- NOTE | 2025-01-14 19:42 | HMCIMG ---
FOOT COMP 3+VWS RT HISTORY: Right third toe posteriorly COMPARISON: None TECHNIQUE: 3 images of the right foot were obtained. FINDINGS: There is third transmetatarsal amputation. Vascular calcifications are seen. Evaluation for osteomyelitis is limited with radiographs. There is no acute displaced fracture or dislocation. There is soft tissue swelling. Degenerative changes are seen. IMPRESSION: 1. Findings as described above.
--- NOTE | 2025-01-14 19:46 | HMCIMG ---
TOE(S) 2+VWS RT HISTORY: Right third toe osteotomy COMPARISON: None TECHNIQUE: 3 images of right third toe were obtained. FINDINGS: Transmetatarsal amputation of fourth toe is seen. Soft tissue swelling is seen. Evaluation for osteomyelitis is limited with radiographs. Vascular calcifications are seen. There is no acute displaced fracture or dislocation. Degenerative changes are seen. IMPRESSION: 1. Findings as described above.
[2025-01-14] MEDS: VANCOMYCIN 1.75 GM/250 ML BAG 250 ML IV ONE (20:11)
[2025-01-14 20:32] LABS: ERYTHROCYTE SEDIMENTATION RATE 51 MM/HR (0-20)
--- NOTE | 2025-01-14 20:58 | ERN ---
General Chief Complaint: Toe Pain/Injury Stated Complaint: TOE PAIN Time Seen by MD: 18:35 Time Seen by Midlevel: 18:35 Source: patient History of Present Illness Initial Comments Patient is a 54-year-old male with a past medical history of uncontrolled type 2 diabetes and hypertension presenting to the emergency department with pain/swelling/bruising to his right 3rd toe. He 1st noticed his right toe proximally a week ago. Over the last couple of days that has progressively wors ened. Today he noticed fever so he decided to report to the ER for further evaluation. He does have a history of a previous toe amputation secondary to a nonhealing ulcer. Allergies: Coded Allergies: No Known Drug Allergies (Unverified Allergy, Unknown, 03/29/24) Home Meds Active Scripts Glipizide (Glipizide ER) 5 Mg Tab.er.24, 5 MG PO DAILY for 30 Days, #30 TAB 1 Refill Prov:ONOFRE CARABALLO MD 04/04/24 Metformin HCl (Metformin HCl) 500 Mg Tablet, 500 MG PO BID for 30 Days, #60 TAB 1 Refill Prov:ONOFRE CARABALLO MD 04/04/24 Clopidogrel Bisulfate (Plavix) 75 Mg Tablet, 75 MG PO DAILY for 30 Days, #30 TAB 1 Refill Prov:ONOFRE CARABALLO MD 04/04/24 Atorvastatin Calcium (LIPITOR) 40 Mg Tablet, 40 MG PO HS for 30 Days, #30 TAB 1 Refill Prov:ONOFRE CARABALLO MD 04/04/24 Aspirin (ASPIRIN 81MG CHEW TAB) 81 Mg Tab.chew, 81 MG PO DAILY for 30 Days, #30 TAB.CHEW 1 Refill Prov:ONOFRE CARABALLO MD 04/04/24 Amlodipine Besylate (Norvasc 5Mg Tab) 5 Mg Tablet, 5 MG PO DAILY for 30 Days, #30 TAB 1 Refill Prov:ONOFRE CARABALLO MD 04/04/24 Past Medical History Past Medical History: Diabetes-Type II, Hypertension Past Surgical History: None ROS Dictation CONSTITUTIONAL: Negative except for HPI HEAD/FACE: Negative except for HPI EENT: Negative except for HPI RESPIRATORY: Negative except for HPI GASTROINTESTINAL/ABDOMINAL: Negative except for HPI GENITOURINARY: Negative except for HPI MUSCULOSKELETAL: Negative except for HPI INTEGUMENTARY: Negative except for HPI NEUROLOGICAL/PSYCH: Negative except for HPI HEMATOLOGIC/LYMPHATIC: Negative except for HPI All Systems Negative, Except as noted above. 13 point review of systems assessed and all negative except for above. Physical Exam Physical Exam Dictation Vital Signs reviewed General Appearance: Alert, oriented x 3, no acute distress, febrile Head and Face: non-traumatic. Eyes: PERRL, pink conjunctivas, eyelid no trauma, anterior chamber with arcus senilis. Ears: Pinnas intact and no signs of trauma or erythema ear canals clear and no discharge TM no erythema Nose: No discharge, no bleeding. Oropharynx: Mouth normal, tongue pink, pharynx clear,no erythema, tonsils no exudates, no abscesses noted, mucous membrane moist Neck: Supple, non-tender, no thyromegaly, no masses, no JVD, no bruits Breast:Deferred Chest:No tenderness, no crepitus, no paradoxical movement, no retractions Lungs:Clear, well-ventilated, symmetric, no rales, no wheezing, no rhonchi, no stridor, good breath sounds bilaterally Heart: Tachycardic, regular rhythm, no murmur, no gallops Vascular: no peripheral edema, Abdomen: Soft, positive bowel sounds, nondistended, no guarding, nontender, no rebound, no masses no hepatomegaly, no splenomegaly, no Adrian's sign, no hernias. Rectal: Deferred Genital: Deferred Neurological: Normal speech, motor function intact, sensory function intact Musculoskeletal: Neck nontender, full range of motion, back nontender, full range of motion, Extremities: old amputation of the right 4th toe, there is swelling and tenderness overlying the right 3rd toe with surrounding erythema Skin: Color pink, dry, no turgor, no rash, no lacerations, no abrasions, no contusions. Lymphatic: Deferred Results Laboratory and Microbiology Lab and Micro Result Laboratory Tests Test 01/14/25 18:58 White Blood Count 9.8 K/uL (4.8-10.8) Red Blood Count 3.97 MIL/uL (4.50-6.20) L Hemoglobin 12.0 g/dL (14.0-18.0) L Hematocrit 35.5 % (42-54) L Mean Corpuscular Volume 89.4 fL (79-99) Mean Corpuscular Hemoglobin 30.2 pg (27.0-33.0) Mean Corpuscular Hemoglobin Concent 33.8 g/dL (32.0-36.0) Red Cell Distribution Width 13.3 % (11.0-15.5) Platelet Count 206 K/uL (130-400) Mean Platelet Volume 9.6 fL (7.5-10.5) Immature Granulocyte % (Auto) 0.4 % (0-1) Neutrophils (%) (Auto) 74.6 % (40.0-77.0) Lymphocytes (%) (Auto) 10.3 % (21.0-51.0) L Monocytes (%) (Auto) 13.3 % (3.0-13.0) H Eosinophils (%) (Auto) 0.8 % (0.0-8.0) Basophils (%) (Auto) 0.6 % (0.0-5.0) Neutrophils # (Auto) 7.3 K/uL (1.8-7.7) Lymphocytes # (Auto) 1.0 K/uL (1.0-4.8) Monocytes # (Auto) 1.3 K/uL (0.1-1.0) H Eosinophils # (Auto) 0.08 K/uL (0.00-0.70) Basophils # (Auto) 0.06 K/uL (0.00-0.20) Absolute Immature Granulocyte (auto 0.04 K/uL (0-1) Nucleated Red Blood Cells 0.0 % (0.0-0.19) Erythrocyte Sedimentation Rate 51 MM/HR (0-20) H Sodium Level 132 mmol/L (136-145) L Potassium Level 3.8 mmol/L (3.5-5.1) Chloride Level 94 mmol/L (101-111) L Carbon Dioxide Level 28 mmol/L (21-32) Blood Urea Nitrogen 11 mg/dL (7-18) Creatinine 1.3 mg/dL (0.5-1.3) Glomerular Filtration Rate Calc 65 mL/min (>90) Random Glucose 230 mg/dL (70-105) H Lactic Acid Level 1.8 mmol/L (0.8-2.5) Total Calcium 9.2 mg/dL (8.5-10.1) Troponin I High Sensitivity 5 ng/L (4-75) Labs Reviewed?: Yes MDM MDM: Differential diagnosis: Cellulitis, osteomyelitis, abscess Rationale: Tests considered and ordered secondary to shared decision making include: Previous outside records reviewed: Old ER visits. Risk of complication and/or morbidity or mortality of patient management: None Medications-Per medication reconciliation Need for hospitalization: Patient does meet criteria for hospitalization. Need for emergency major/minor surgery: No There are no social concerns with this patient. Prescription drug management Prescriptions will include symptomatic care Patient's prior external medical records from other ER visits were reviewed by me as indicated. Prior testing and results from previous visits were reviewed. Prior tests were taken into account with medical decision making and resource utilization, independent historian/historians were used to obtain complete medical history. I independently interpreted the test that were performed, results were reviewed by me and considered findings on radiology if ordered. Medical management and examination interpretation discussions were had by me with other qualified healthcare professionals as indicated for the patient's care. ED Course Orders Procedure Category Date Status Time Cbc With Differential LAB 01/14/25 Complete 18:40 Basic Metabolic Panel LAB 01/14/25 Complete 18:40 Lactic Acid LAB 01/14/25 Complete 18:40 Toe(S) 2+Vws Rt RAD 01/14/25 Resulted 18:40 Foot Comp 3+Vws Rt RAD 01/14/25 Resulted 18:40 Acetaminophen 500mg PHA 01/14/25 Complete Tab (Tylenol 500mg T 19:00 Blood Cult AIMEE 01/14/25 In Process 18:40 0.9%Nacl 1000ml (Ns PHA 01/14/25 In Process 1000ml) 19:00 12 Lead Ekg Tracing- EKG 01/14/25 Complete Technical 18:40 Chest 1vw RAD 01/14/25 Resulted 18:40 Troponin I High LAB 01/14/25 Complete Sensitivity 18:40 Erythrocyte LAB 01/14/25 Complete Sedimentation Rate 18:40 Vancomycin Protocol PHA 01/14/25 In Process (Vancomycin Protocol 19:00 Zosyn 3.375gm+Ns 50ml PHA 01/14/25 Complete (Zosyn 3.375gm+Ns 19:00 Vancomycin 1.75 PHA 01/14/25 In Process Gm/250 Ml Bag 20:00 Vancomycin 1g/250ml PHA 01/15/25 In Process Kit (Vancomycin 1g/2 08:00 Vancomycin Trough LAB 01/16/25 Verified 07:00 Current Medications Medications (Trade) Dose Ordered Sig/Apoorva Route PRN Reason Start Time Stop Time Status Last Admin Dose Admin Acetaminophen (TYLenol 500MG TAB) 1,000 mg ONCE ONCE PO 01/14/25 19:00 01/14/25 19:01 DC 01/14/25 19:18 Piperacillin Sod/ Tazobactam Sod (Zosyn 3.375gm+NS 50ml) 3.375 gm ONCE ONCE IV 01/14/25 19:00 01/14/25 19:01 DC 01/14/25 19:17 Sodium Chloride 1,959 ml @ 653 mls/hr ONCE ONCE IV 01/14/25 19:00 01/14/25 21:59 01/14/25 19:17 Vancomycin HCl 250 ml @ 125 mls/hr ONCE ONCE IV 01/14/25 20:00 01/14/25 21:59 01/14/25 20:11 Vancomycin HCl 250 ml @ 125 mls/hr Q12H IV 01/15/25 08:00 01/25/25 07:59 Vancomycin HCl (Vancomycin Protocol) 1 each AD IV 01/14/25 19:00 01/28/25 18:59 Vital Signs Date Time Temp Pulse Resp B/P (MAP) Pulse Ox O2 Delivery O2 Flow Rate FiO2 01/14/25 20:59 98.8 80 14 160/90 99 Room Air* 0 21 01/14/25 19:18 101.8 01/14/25 19:11 101.8 99 14 143/78 99 Room Air* 0 21 01/14/25 18:29 101.8 104 20 154/85 98 Room Air DX & DISP Disposition: Inpatient Departure Impression: Primary Impression: Diabetic infection of right foot Additional Impressions: Uncontrolled diabetes mellitus with hyperglycemia, Chronic anemia Condition: Stable Referrals: SELF,REFERRAL (PCP) I have reviewed the case, and I agree with, Diagnosis and Plan I performed the substantive portion of the visit. I have reviewed and personally made and approve the management plan that is documented in the note by myself or the MARGARET. I acknowledge for responsibility for the patient's management plan. CHANDRAKANT HEALY Jan 14, 2025 20:58
--- NOTE | 2025-01-14 21:59 | HP ---
[facility] Date of Service: Jan 14, 2025 Time of Service: 21:33 PCP self referral HISTORY OF PRESENT ILLNESS: This is a 54-year-old male Iraqi-speaking, with past medical history of diabetes, hypertension, peripheral vascular disease status post right tibial artery with angioplasty and osteomyelitis of the right 4th toe with amputation who presents to the ED for complaints of right foot pain /swelling and right 3rd toe is necrotic which started 1 week ago.Patient unable to determine how it started because he said he has neuropathy and he notyiced a week ago it started hurting and the wound looks getting worse so he decided to come to be evaluated.Patient states he did not seek medical help. Upon arrival to ER vital signs temperature 101.8, heart rate 104, blood pressure 154/85 saturation 98% on room air. Labs: Hemoglobin 12, hematocrit 35, platelet count 206. Sodium 132, chloride 94, glucose 230. Chest x-ray result revealed no acute pulmonary infiltrate is seen. Right Foot x-ray result revealed there is 3rd transmetatarsal amputation. Vascular calcifications are seen. Evaluation for osteomyelitis is limited with radiographs. There is no acute displaced fracture or dislocation. There is soft tissue swelling. Degenerative changes are seen. Right toe x-ray result revealed transmetatarsal amputation of 4th toe is seen. Soft tissue swelling is seen. Evaluation for osteomyelitis is limited with radiographs. Vascular calcifications are seen. There is no acute displaced fracture or dislocation. Degenerative changes are seen. EKG result revealed sinus rhythm heart rate 94 with left ventricular hypertrophy inferior infarct old. While in the ER patient received Zosyn IV, vancomycin IV and received Tylenol 1000 mg p.o. and IV fluid resuscitation 30 mL/kilogram over 3 hours. We will admit patient for further medical management. REVIEW OF SYSTEMS CONSTITUTIONAL: Positive fever and chills Denies or night sweats. No unintentional weight loss reported. NEUROLOGICAL: Denies headache, amaurosis fugax, motor weakness, sensory deficit, vertigo/spinning sensation, gait abnormalities, or tremors. ENT: No hearing loss, otalgia, otorrhea, rhinitis, rhinorrhea, hoarseness, or sore throat. CARDIOVASCULAR: Denies any exertional angina, dyspnea on exertion, orthopnea, paroxysmal nocturnal dyspnea, palpitations, life-threatening arrhythmias, claudication. PULMONARY: Denies any shortness of breath, cough, phlegm/sputum, hemoptysis, pleuritic chest pain. SLEEP: Denies morning headaches, daytime somnolence or napping. Denies difficulty falling asleep, staying asleep, waking from sleep. Denies knowledge of snoring. GASTROINTESTINAL: Denies any type of dysphagia to either liquids or solids. Denies nausea, vomiting, pyrosis, early satiety, abdominal pain, diarrhea, constipation, or changes in stool consistency or caliber. Denies coffee-ground emesis, hematemesis, hematochezia, or melanotic stools. GENITOURINARY: Denies frequency, urgency, nocturia, hematuria or incontinence (Storage/Irritative symptoms.) Low urinary stream, straining to void, urinary intermittency or hesitancy, splitting of the voiding stream, terminal dribbling. ENDOCRINOLOGIC: Denies polyuria, polydipsia, polyphagia or heat/cold intolerances. HEMATOLOGIC: Denies thrombophilia/previous clots, or coagulopathy/bleeding disorders. ONCOLOGIC: Denies personal history of malignancy. DERMATOLOGIC: Denies rashes or pruritus. PSYCHIATRIC: Denies any suicidal or homicidal ideation. Denies hallucinations. PAST MEDICAL HISTORY: [ Diabetes, hypertension, PVD and osteomyelitis of right 4th toe ] PAST SURGICAL HISTORY: [Status post right tibial artery with angioplasty on March 2024 , amputation of the right 4th toe on 03/31/2024 ] PAST SOCIAL HISTORY: [Patient lives alone. Patient needs to drinking three beers per day patient denies cigarette and recreational drug use ] FAMILY HISTORY: [ Noncontributory] Coded Allergies: No Known Drug Allergies (Unverified Allergy, Unknown, 03/29/24) PHYSICAL EXAM GENERAL APPEARANCE: The patient is awake, alert, and oriented, in no acute cardiopulmonary distress. NEUROLOGICAL: Cranial nerves II-XII grossly intact. Motor is 5/5 in bilateral upper and lower extremities proximal to distal. No sensory deficits. HEENT: Face is symmetric. Pupils are equal and reactive. Extraocular movements are intact. NECK: Supple. No JVD. No thyromegaly. No submental, submandibular, pre- /postauricular, occipital or supraclavicular lymphadenopathy. CHEST: Normal chest expansion. No Telemetry. LUNGS: Absence of any rales, rhonchi or any wheezing. CARDIOVASCULAR: Regular. S1 and S2 normal. No appreciable rubs, murmurs or gallops. ABDOMEN: Soft, nontender, and nondistended. There is no rebound, voluntary guarding, or rigidity. : Deferred. No Shirley. EXTREMITIES: Non-edematous and not cyanotic. No clubbing. Good capillary refill. SKIN: Right 3rd toe necrotic wound Vital Sign (Last 24 Hours) 01/14/25 20:59 Temp 98.8 Pulse 80 Resp 14 B/P (MAP) 160/90 Pulse Ox 99 O2 Delivery Room Air* O2 Flow Rate 0 FiO2 21 LABS: Laboratory: Test 01/14/25 18:58 Range/Units White Blood Count 9.8 4.8-10.8 K/uL Red Blood Count 3.97 L 4.50-6.20 MIL/uL Hemoglobin 12.0 L 14.0-18.0 g/dL Hematocrit 35.5 L 42-54 % Mean Corpuscular Volume 89.4 79-99 fL Mean Corpuscular Hemoglobin 30.2 27.0-33.0 pg Mean Corpuscular Hemoglobin Concent 33.8 32.0-36.0 g/dL Red Cell Distribution Width 13.3 11.0-15.5 % Platelet Count 206 130-400 K/uL Mean Platelet Volume 9.6 7.5-10.5 fL Immature Granulocyte % (Auto) 0.4 0-1 % Neutrophils (%) (Auto) 74.6 40.0-77.0 % Lymphocytes (%) (Auto) 10.3 L 21.0-51.0 % Monocytes (%) (Auto) 13.3 H 3.0-13.0 % Eosinophils (%) (Auto) 0.8 0.0-8.0 % Basophils (%) (Auto) 0.6 0.0-5.0 % Neutrophils # (Auto) 7.3 1.8-7.7 K/uL Lymphocytes # (Auto) 1.0 1.0-4.8 K/uL Monocytes # (Auto) 1.3 H 0.1-1.0 K/uL Eosinophils # (Auto) 0.08 0.00-0.70 K/uL Basophils # (Auto) 0.06 0.00-0.20 K/uL Absolute Immature Granulocyte (auto 0.04 0-1 K/uL Nucleated Red Blood Cells 0.0 0.0-0.19 % Erythrocyte Sedimentation Rate 51 H 0-20 MM/HR Sodium Level 132 L 136-145 mmol/L Potassium Level 3.8 3.5-5.1 mmol/L Chloride Level 94 L 101-111 mmol/L Carbon Dioxide Level 28 21-32 mmol/L Blood Urea Nitrogen 11 7-18 mg/dL Creatinine 1.3 0.5-1.3 mg/dL Glomerular Filtration Rate Calc 65 >90 mL/min Random Glucose 230 H 70-105 mg/dL Lactic Acid Level 1.8 0.8-2.5 mmol/L Total Calcium 9.2 8.5-10.1 mg/dL Troponin I High Sensitivity 5 4-75 ng/L Current Medications Medications (Trade) Dose Ordered Sig/Apoorva Route PRN Reason Start Time Stop Time Status Last Admin Dose Admin Vancomycin HCl 250 ml @ 125 mls/hr Q12H IV 01/15/25 08:00 01/25/25 07:59 Vancomycin HCl (Vancomycin Protocol) 1 each AD IV 01/14/25 19:00 01/28/25 18:59 DIAGNOSTICS / RADIOLOGY: [ ] ASSESSMENT: Sirs with organ dysfunction POA Suspected right 3rd toe osteomyelitis POA Right foot pain POA Peripheral vascular disease POA Uncontrolled diabetes POA Chronic anemia POA Pseudohyponatremia POA PLAN: We will admit patient in medical t We will start on consistent carb diet We will start NS @ 100 ml / hr x1 bag and re evaluate We will start on heparin 5000 subQ b.i.d. for DVT prophylaxis We will continue on Zosyn IV and vancomycin IV for broad-spectrum coverage We will start on famotidine 20 mg p.o. b.i.d. for GI prophylaxis We will replace electrolytes as needed per protocol We will start on insulin sliding scale AC & HS with hypoglycemia protocol We will add prn medication for fever,pain,cough , nausea and vomiting We will reconcile home meds once medlist available We will seek Infectious Disease consultation We will seek podiatry consultation We will request arterial Doppler to right lower extremity We will request labs in am Further orders to follow depending on above results Case discussed with attending physician and came up with above treatment and plan of care. ADVANCED CARE PLANNING 1. Which of the following were discussed? Hospice Care - No Therapeutic options - Yes Advance Directives - No Other discussions - 2. Discussed with who? Patient 3. Voluntary nature of this service was explained to the patient? Yes 4. Amount of time spent - 22 5. Reviewed by Physician? (if this service was performed by NPP) Yes Patient seen and examined by me. Agree with note by HEEL SEAT SANDER SEE ADDITIONAL ORDERS PER CHART DISCUSSED WITH NURSING STAFF MARTHA FERRARI MACHINE STRAP BUCKLER Jan 14, 2025 21:59
[2025-01-14] MEDS ORDERED: ondanSETRON 4MG INJ IV PRN (22:00)
[2025-01-14] MEDS ORDERED: GLUCAGON 1MG KIT 1 MG ML IM PRN (22:00)
[2025-01-14] MEDS ORDERED: PoTASSium chloRIDE 20MEQ ER 20 MEQ ERTAB PO PRN (22:00)
[2025-01-14] MEDS ORDERED: PoTASSium chl 10% ELIXIR 20MEQ 20 MEQ/15 ML UDCUP PO PRN (22:00)
[2025-01-14] MEDS ORDERED: DEXTROSE 50%-WATER 50 ML DISP.SYRIN IV PRN (22:00)
[2025-01-14] MEDS ORDERED: VANCOMYCIN 1G/250ML KIT 250 ML IV SCH (22:00)
[2025-01-14] MEDS ORDERED: PoTASSium chloRIDE 20MEQ/100ML 100 ML IV PRN (22:00)
[2025-01-14] MEDS ORDERED: acetaMINOPHEN 325 MG TAB PO PRN ×2 (22:00)
[2025-01-14] MEDS: HEParin 5,000 UNIT VIAL SQ SCH (22:46)
[2025-01-14] MEDS: 0.9%NACL 1000ML 1,000 ML IV SCH (22:46)
[2025-01-14] MEDS: FAMOTIDINE 20MG TAB PO SCH (22:46)
[2025-01-14 23:35] VITALS: BP 149/89; PULSE 72; RESP 16; TEMP 98; O2SAT 97
[2025-01-15] VITALS (8 sets, daily range): BP systolic 127–148; BP diastolic 64–88; PULSE 56–84; RESP 18–19; TEMP 97.8–99.5; O2SAT 99–100
--- NOTE | 2025-01-15 00:44 | HMCIMG ---
US ARTERIAL UNILA LOW EXT DUPL HISTORY: Chronic ulcer COMPARISON: None TECHNIQUE: Right lower extremity arterial Doppler ultrasound study was performed. FINDINGS: Normal triphasic arterial waveforms are noted in the right common femoral, deep femoral, superficial femoral, popliteal arteries. Abnormal monophasic arterial waveforms with hyperemia are seen in the right anterior tibial, posterior tibial, peroneal and dorsalis pedal arteries. On the right, the peak systolic velocity of the common femoral artery is 87 cm/s, the proximal femoral artery is 86 cm/s, the mid femoral artery is 97 cm/s, the distal femoral artery is 95 cm/s, the proximal popliteal artery is 79 cm/s, the distal popliteal artery is 67 cm/s, the anterior tibial artery is 182 cm/s, the posterior tibial artery artery is 149 cm/s, peroneal artery is 83 cm/s and the dorsalis pedal artery is 111 cm/s. IMPRESSION: 1. Atherosclerotic disease. 2. Abnormal monophasic arterial waveforms with hyperemia are seen in the right anterior tibial, posterior tibial, peroneal and dorsalis pedal arteries..
[2025-01-15] MEDS: ZOSYN 3.375GM+NS 50ML 50 ML IV SCH (04:16)
[2025-01-15 04:58] LABS: BASOPHILS # (AUTO) 0.05 K/uL (0.00-0.20); BASOPHILS % (AUTO) 0.6 % (0.0-5.0); EOSINOPHILS # (AUTO) 0.22 K/uL (0.00-0.70); EOSINOPHILS % (AUTO) 2.6 % (0.0-8.0); HEMATOCRIT 33.4 % (42-54); IMMATURE GRANULOCYTE ABSOLUTE 0.03 K/uL (0-1); LYMPHOCYTES # (AUTO) 1.1 K/uL (1.0-4.8); LYMPHOCYTES % (AUTO) 12.6 % (21.0-51.0); MEAN CORPUSCULAR HEMOGLOBIN 30.1 pg (27.0-33.0); MEAN CORPUSCULAR HGB CONC 33.8 g/dL (32.0-36.0); MEAN CORPUSCULAR VOLUME 88.8 fL (79-99); MONOCYTES # (AUTO) 0.9 K/uL (0.1-1.0); MONOCYTES % (AUTO) 10.7 % (3.0-13.0); NEUTROPHILS # (AUTO) 6.3 K/uL (1.8-7.7); NEUTROPHILS % (AUTO) 73.2 % (40.0-77.0); PLATELET COUNT (AUTO) 188 K/uL (130-400); RED BLOOD CELL COUNT(AUTO) 3.76 MIL/uL (4.50-6.20); RED CELL DISTRIBUTION WIDTH 13.3 % (11.0-15.5); WHITE BLOOD COUNT (AUTO) 8.6 K/uL (4.8-10.8)
[2025-01-15 05:11] LABS: INR 1.02 (0.85-1.15); PROTHROMBIN TIME 10.8 SEC (9.6-11.6)
[2025-01-15 05:13] LABS: PARTIAL THROMBOPLASTIN TIME 30.2 SEC (26.3-35.5)
[2025-01-15 05:20] LABS: HEMOGLOBIN A1C 9.6 % (4.0-6.0)
[2025-01-15 05:30] LABS: ALBUMIN 2.8 g/dL (3.5-5.0); BILIRUBIN,TOTAL 0.8 mg/dL (0.2-1.0); MAGNESIUM 1.7 mg/dL (1.80-2.40); POTASSIUM 3.6 mmol/L (3.5-5.1); TOTAL PROTEIN, SERUM 7.1 g/dL (6.0-8.3)
[2025-01-15] MEDS: MAGNESIUM 2GM PREMIX 50ML 50 ML IV PRN (05:45)
[2025-01-15] MEDS: INSULIN humuLIN R 100 UNIT/ML 3ML SQ SCH (06:06)
[2025-01-15] MEDS: VANCOMYCIN 1G/250ML KIT 250 ML IV SCH (08:58)
--- NOTE | 2025-01-15 11:33 | NUR ---
DCP -- Home Patient is Afghan speaking. Patient states he lives alone in a rental mobile home with three step entrance and tub. 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 States States able to complete ADL's on his own. Denies medical devices. Denies home health services, home care provider or dialysis. PCP - None per patient Pharmacy - [facility]; requests financial assistance with prescriptions; provided Drill Map. Upon discharge, states Serge Tellez, Friend [phone]/Scar Freitas, Friend [phone]. Requests education of foods/nutrition for diabetics with examples of foods; notified Angie MOREAU. Addendum: 01/15/25 at 1148 by JACKELYN ROTH RN CM Amended: Links added.
--- NOTE | 2025-01-15 11:51 | PN ---
[facility] PROGRESS NOTE Date of Service: Jan 15, 2025 Time of Service: 11:46 SUBJECTIVE: This is a 54-year-old male [place]-speaking, with past medical history of diabetes, hypertension, peripheral vascular disease status post right tibial artery with angioplasty and osteomyelitis of the right 4th toe with amputation who presented to the ED for complaints of right foot pain /swelling and right 3rd toe necrosis which started 1 week ago. Patient unable to determine how it started because he said he has neuropathy and he noticed a week ago it started hurting and the wound looks getting worse so he decided to come to be evaluated. Upon arrival to ER vital signs temperature 101.8, heart rate 104, blood pressure 154/85 saturation 98% on room air. In the ER Labs: Hemoglobin 12, hematocrit 35, platelet count 206. Sodium 132, chloride 94, glucose 230. Chest x-ray result revealed no acute pulmonary infiltrate is seen. Right Foot x-ray result revealed there is 3rd transmetatarsal amputation. Vascular calcifications are seen. Evaluation for osteomyelitis is limited with radiographs. There is no acute displaced fracture or dislocation. There is soft tissue swelling. Degenerative changes are seen. EKG result revealed sinus rhythm heart rate 94 with left ventricular hypertrophy inferior infarct old. While in the ER patient received Zosyn IV, vancomycin IV and received Tylenol 1000 mg p.o. and IV fluid resuscitation 30 mL/kilogram over 3 hours. Arterial ultrasound right lower extremity showing atherosclerotic disease, abnormal monophasic arterial waveform with the hyperemia seen in the right anterior tibial, posterior tibial, peroneal and dorsalis pedal arteries. Patient was for further medical management. Today patient is alert oriented x3, hemodynamically stable, getting good pain control with current medical management, getting IV antibiotics during my visit REVIEW OF SYSTEMS CONSTITUTIONAL: Positive fever and chills Denies or night sweats. No unintentional weight loss reported. NEUROLOGICAL: Denies headache, amaurosis fugax, motor weakness, sensory deficit, vertigo/spinning sensation, gait abnormalities, or tremors. ENT: No hearing loss, otalgia, otorrhea, rhinitis, rhinorrhea, hoarseness, or sore throat. CARDIOVASCULAR: Denies any exertional angina, dyspnea on exertion, orthopnea, paroxysmal nocturnal dyspnea, palpitations, life-threatening arrhythmias, claudication. PULMONARY: Denies any shortness of breath, cough, phlegm/sputum, hemoptysis, pleuritic chest pain. SLEEP: Denies morning headaches, daytime somnolence or napping. Denies difficulty falling asleep, staying asleep, waking from sleep. Denies knowledge of snoring. GASTROINTESTINAL: Denies any type of dysphagia to either liquids or solids. Denies nausea, vomiting, pyrosis, early satiety, abdominal pain, diarrhea, constipation, or changes in stool consistency or caliber. Denies coffee-ground emesis, hematemesis, hematochezia, or melanotic stools. GENITOURINARY: Denies frequency, urgency, nocturia, hematuria or incontinence (Storage/Irritative symptoms.) Low urinary stream, straining to void, urinary intermittency or hesitancy, splitting of the voiding stream, terminal dribbling. ENDOCRINOLOGIC: Denies polyuria, polydipsia, polyphagia or heat/cold intolerances. HEMATOLOGIC: Denies thrombophilia/previous clots, or coagulopathy/bleeding disorders. ONCOLOGIC: Denies personal history of malignancy. DERMATOLOGIC: Denies rashes or pruritus. PSYCHIATRIC: Denies any suicidal or homicidal ideation. Denies hallucinations. PHYSICAL EXAM GENERAL APPEARANCE: The patient is awake, alert, and oriented, in no acute cardiopulmonary distress. NEUROLOGICAL: Cranial nerves II-XII grossly intact. Motor is 5/5 in bilateral upper and lower extremities proximal to distal. No sensory deficits. HEENT: Face is symmetric. Pupils are equal and reactive. Extraocular movements are intact. NECK: Supple. No JVD. No thyromegaly. No submental, submandibular, pre- /postauricular, occipital or supraclavicular lymphadenopathy. CHEST: Normal chest expansion. No Telemetry. LUNGS: Absence of any rales, rhonchi or any wheezing. CARDIOVASCULAR: Regular. S1 and S2 normal. No appreciable rubs, murmurs or gallops. ABDOMEN: Soft, nontender, and nondistended. There is no rebound, voluntary guarding, or rigidity. : Deferred. No Shirley. EXTREMITIES: Non-edematous and not cyanotic. No clubbing. Good capillary refill. SKIN: Right 3rd toe necrotic wound Vital Signs (last 8hr) Date Time Temp Pulse Resp B/P (MAP) Pulse Ox O2 Delivery O2 Flow Rate FiO2 01/15/25 11:10 99.1 71 18 145/88 99 Room Air 01/15/25 07:34 98.2 76 18 143/84 99 Room Air 01/15/25 04:03 98.2 84 19 127/84 100 Room Air LABS: Laboratory: Test 01/15/25 10:50 01/15/25 04:26 01/14/25 18:58 Range/Units Whole Blood Glucose 224 H 70-110 MG/DL White Blood Count 8.6 4.8-10.8 K/uL Red Blood Count 3.76 L 4.50-6.20 MIL/uL Hemoglobin 11.3 L 14.0-18.0 g/dL Hematocrit 33.4 L 42-54 % Mean Corpuscular Volume 88.8 79-99 fL Mean Corpuscular Hemoglobin 30.1 27.0-33.0 pg Mean Corpuscular Hemoglobin Concent 33.8 32.0-36.0 g/dL Red Cell Distribution Width 13.3 11.0-15.5 % Platelet Count 188 130-400 K/uL Mean Platelet Volume 9.7 7.5-10.5 fL Immature Granulocyte % (Auto) 0.3 0-1 % Neutrophils (%) (Auto) 73.2 40.0-77.0 % Lymphocytes (%) (Auto) 12.6 L 21.0-51.0 % Monocytes (%) (Auto) 10.7 3.0-13.0 % Eosinophils (%) (Auto) 2.6 0.0-8.0 % Basophils (%) (Auto) 0.6 0.0-5.0 % Neutrophils # (Auto) 6.3 1.8-7.7 K/uL Lymphocytes # (Auto) 1.1 1.0-4.8 K/uL Monocytes # (Auto) 0.9 0.1-1.0 K/uL Eosinophils # (Auto) 0.22 0.00-0.70 K/uL Basophils # (Auto) 0.05 0.00-0.20 K/uL Absolute Immature Granulocyte (auto 0.03 0-1 K/uL Nucleated Red Blood Cells 0.0 0.0-0.19 % Prothrombin Time 10.8 9.6-11.6 SEC Prothromb Time International Ratio 1.02 0.85-1.15 Activated Partial Thromboplast Time 30.2 26.3-35.5 SEC Sodium Level 133 L 136-145 mmol/L Potassium Level 3.6 3.5-5.1 mmol/L Chloride Level 99 L 101-111 mmol/L Carbon Dioxide Level 26 21-32 mmol/L Blood Urea Nitrogen 11 7-18 mg/dL Creatinine 1.0 0.5-1.3 mg/dL Glomerular Filtration Rate Calc 89 >90 mL/min Random Glucose 192 H 70-105 mg/dL Hemoglobin A1c 9.6 H 4.0-6.0 % Estimated Average Glucose (eAG) 229 H 70-126 mg/dL Total Calcium 8.0 L 8.5-10.1 mg/dL Magnesium Level 1.70 L 1.80-2.40 mg/dL Total Bilirubin 0.8 0.2-1.0 mg/dL Aspartate Amino Transf (AST/SGOT) 20 10-37 U/L Alanine Aminotransferase (ALT/SGPT) 27 12-78 U/L Alkaline Phosphatase 52 50-136 U/L Total Protein 7.1 6.0-8.3 g/dL Albumin 2.8 L 3.5-5.0 g/dL Procalcitonin 0.11 0.05-0.5 ng/mL Erythrocyte Sedimentation Rate 51 H 0-20 MM/HR Lactic Acid Level 1.8 0.8-2.5 mmol/L Troponin I High Sensitivity 5 4-75 ng/L Current Medications Medications (Trade) Dose Ordered Sig/Apoorva Route PRN Reason Start Time Stop Time Status Last Admin Dose Admin Acetaminophen (TYLenol 325MG TAB) 650 mg Q4H PRN PO MILD PAIN (1-3) 01/14/25 22:00 02/13/25 21:59 Acetaminophen (TYLenol 325MG TAB) 650 mg Q6H PRN PO TEMPERATURE GREATER THAN 101.5 01/14/25 22:00 02/13/25 21:59 Acetaminophen/ Hydrocodone Bitart (NORco 5/325MG) 1 tab Q4H PRN PO MODERATE PAIN (4-6) 01/14/25 22:00 01/19/25 21:59 Acetaminophen/ Hydrocodone Bitart (NORco 5/325MG) 2 tab Q4H PRN PO SEVERE PAIN (7-10) 01/14/25 22:00 01/19/25 21:59 Dextrose (D50w) 50 ml AD PRN IV HYPOGLYCEMIA PROTOCOL 01/14/25 22:00 02/13/25 21:59 Famotidine (Pepcid 20mg Tab) 20 mg BID PO 01/14/25 22:30 02/13/25 22:29 01/15/25 08:59 20 MG Glucagon (Glucagon 1mg Kit) 1 mg AD PRN IM HYPOGLYCEMIA PROTOCOL 01/14/25 22:00 02/13/25 21:59 Heparin Sodium (Porcine) (HEParin 5,000 UNIT VIAL) 5,000 unit Q12H SQ 01/14/25 22:00 02/13/25 21:59 01/15/25 09:04 5,000 UNIT Insulin Human Regular (humuLIN R 100 UNIT/ML 3ML) INSULIN SLIDING SCAL... ACHS SQ 01/15/25 07:30 02/14/25 07:29 01/15/25 06:06 2 UNIT Magnesium Sulfate 50 ml @ 0 mls/hr PROTOCOL PRN IV OTHER [SEE ORDER COMMENTS] 01/14/25 22:00 02/13/25 21:59 01/15/25 05:45 25 MLS/HR Ondansetron HCl (zoFRAN 4MG INJ) 4 mg Q6H PRN IV NAUSEA/VOMITING 01/14/25 22:00 02/13/25 21:59 Piperacillin Sod/ Tazobactam Sod 50 ml @ 12.5 mls/hr ZOSY8 IV 01/15/25 05:00 01/25/25 04:59 01/15/25 04:16 12.5 MLS/HR Potassium Chloride 100 ml @ 100 mls/hr AD PRN IV POTASSIUM PROTOCOL 01/14/25 22:00 02/13/25 21:59 Potassium Chloride (K-Dur/Klor-Con 20meq) 20 meq AD PRN PO POTASSIUM PROTOCOL 01/14/25 22:00 02/13/25 21:59 Potassium Chloride (KCl 10% Elixir 20meq/15ml) 20 meq AD PRN PO POTASSIUM PROTOCOL 01/14/25 22:00 02/13/25 21:59 Sodium Chloride 1,000 ml @ 100 mls/hr Q10H IV 01/14/25 22:00 02/13/25 21:59 01/15/25 08:58 100 MLS/HR Vancomycin HCl 250 ml @ 125 mls/hr ONCE IV 01/14/25 22:00 01/14/25 22:08 DC Vancomycin HCl 250 ml @ 125 mls/hr Q12H IV 01/15/25 08:00 01/25/25 07:59 01/15/25 08:58 125 MLS/HR Vancomycin HCl (Vancomycin Protocol) 1 each AD IV 01/14/25 19:00 01/28/25 18:59 DIAGNOSTICS / RADIOLOGY: [ ] US ARTERIAL UNILA LOW EXT DUPL HISTORY: Chronic ulcer COMPARISON: None TECHNIQUE: Right lower extremity arterial Doppler ultrasound study was performed. FINDINGS: Normal triphasic arterial waveforms are noted in the right common femoral, deep femoral, superficial femoral, popliteal arteries. Abnormal monophasic arterial waveforms with hyperemia are seen in the right anterior tibial, posterior tibial, peroneal and dorsalis pedal arteries. On the right, the peak systolic velocity of the common femoral artery is 87 cm/s, the proximal femoral artery is 86 cm/s, the mid femoral artery is 97 cm/s, the distal femoral artery is 95 cm/s, the proximal popliteal artery is 79 cm/s, the distal popliteal artery is 67 cm/s, the anterior tibial artery is 182 cm/s, the posterior tibial artery artery is 149 cm/s, peroneal artery is 83 cm/s and the dorsalis pedal artery is 111 cm/s. IMPRESSION: 1. Atherosclerotic disease. 2. Abnormal monophasic arterial waveforms with hyperemia are seen in the right anterior tibial, posterior tibial, peroneal and dorsalis pedal arteries.. ASSESSMENT: Sirs with organ dysfunction POA Suspected right 3rd toe osteomyelitis POA Right foot pain POA Peripheral vascular disease POA Uncontrolled diabetes POA Chronic anemia POA Pseudohyponatremia POA PLAN: Patient remains Admitted to the medical floor Continue the patient on broad-spectrum IV antibiotics Infectious disease consultation requested, we will follow input and recommendation. Currently the patient on vancomycin and Zosyn IV Podiatry consultation requested, follow input and recommendation. NEURO: Minimize central acting medications as possible. Fall Precautions. Well lighted room through the day and minimize interruptions through the night to prevent acute delirium. PULMONARY: Supplemental 02 as needed BiPAP as necessary, for respiratory distress Titrate Fio2 to keep Spo2 > or = 90% DuoNebs and CPT as needed IS hourly while awake for pulmonary hygiene prn Out of bed to chair as tolerated Maintain aspiration precautions at all times CARDIOVASCULAR: Follow hemodynamics. Vital signs per facility protocol GI & NUTRITION: Continue nutritional support Aspirations precautions Prokinetic agents and laxatives as needed KIDNEYS & ELECTROLYTES: Strict monitoring of intake and output Daily weights Avoid nephrotoxic agents Monitor electrolytes and replace as needed Goal urine output of 30mL/hr or 0.5mL/kg/hr Medications to be dosed according to renal function. Avoid contrast if possible ENDOCRINE: Maintain blood glucose between 100-180 at all times. Insulin sliding scale for blood glucose management Hypoglycemia and hyperglycemia protocol in place INFECTIOUS DISEASE: Trend temperature, WBC and procalcitonin level Follow cultures, deescalate antibiotics as soon as possible. Panculture if new onset fever HEMATOLOGY & COAGULATION: Monitor H&H. Keep Hgb > 7 Transfuse 1 unit of PRBC for Hgb < 7 Transfuse 1 pack of platelets of platelets < 20, 000 Watch for any signs and symptoms of bleeding SKIN: Pressure ulcer prevention per facility protocol Specialty mattress as needed ORTHO/REHAB Continue PT/OT PRN: MEDICATIONS Tylenol 650 mg po every 4 hrs for fever zofran 4 mg IV every 6 hrs for n/v Hydralazine 5 mg IV every 4 hrs systolic pressure > 160 bowel regiment: lactulose 20 gm PO BID PRN constipation Supportive measures: Continue GI and DVT prophylaxis Disposition: Pending improvement in clinical condition All questions answered time spent: > 35 min ONOFRE CARABALLO MD Jan 15, 2025 11:51
--- NOTE | 2025-01-15 14:38 | NUR ---
[facility] Consult: Patient assessed by wound healing team. See wound assessment. Assessment and recommendations provided to primary nurse. Education provided. Addendum: 01/16/25 at 0857 by INGRID MINAYA RN RN/ Amended: Links added.
--- NOTE | 2025-01-15 21:04 | PN ---
INFECTIOUS DISEASE FOLLOWUP NOTE DATE OF SERVICE: 01/15/2025 SUBJECTIVE: The patient is seen and examination at bedside today. No fever. No chills. No nausea. No vomiting. No abdominal pain. No cough. No shortness of breath. No palpitations or orthopnea. No bleeding tendency. PHYSICAL EXAMINATION: VITAL SIGNS: Temperature 97.4. EYES: No icterus. Pupils equal and reactive. HENT: No oral thrush seen. Moist oral mucosa. NECK: Supple. No JVD or thyromegaly. LUNGS: Good air entry. No rales. No rhonchi. CARDIOVASCULAR: S1 and S2. Regular. No murmur heard. ABDOMEN: Full, soft, nontender. Bowel sound is pleasant. CENTRAL NERVOUS SYSTEM: Awake, alert and oriented x 3. No focal deficits. SKIN: No rashes, no itchiness. LYMPHATIC: No peripheral edema. EXTREMITIES: Ganglion change involving the distal phalanx of the right third toe. There is purulent drainage. WBC of 8.3, Hemoglobin of 11.2, platelets 183. ASSESSMENT: A 54-year-old male admitted with right foot ulcer. Current problems include: * Possible right third toe osteomyelitis. * Diabetic foot abscess and ulcer. * Right foot cellulitis. PLAN: * Continue wound care. * Follow up cultures. * Continue antidiabetic. * Continue pain management. * Monitor electrolytes. * Continue present antibiotic regimen. TID: [id number] RECEIPT: [id number]
[2025-01-15] MEDS: atorVAStatin 40 MG TABLET PO SCH (22:51)
[2025-01-15] MEDS: HYDROcodone/APAP 5/325 1 TAB TABLET PO PRN (22:54)
--- NOTE | 2025-01-15 23:51 | CONS ---
HISTORY OF PRESENT ILLNESS: This is a male who was seen for consultation at courtesy of Dr. Fang for evaluation of the third toe gangrene on the left foot. The patient has a history of peripheral vascular disease, history of previous amputation to the fourth toe on the same foot secondary to diabetes, poorly controlled diabetes and poor medical compliance. The patient at this time stated that he presented with a blister on the distal aspect of the third toe, which eventually became ulcerated and gangrenous with cellulitis extending towards the dorsal aspect of the foot. At this point, the patient has been admitted to the hospital secondary to the cellulitis and gangrenous changes to the third toe. Past medical history and other medications were reviewed. SOCIAL HISTORY: He denies any smoking, drinking, or using illicit drugs. PHYSICAL EXAMINATION: EXTREMITIES: At this moment, his physical examination, dorsalis pedis and posterior tibialis pulses were 1/4, to be readily palpable. Foot although was noted to be warm. Positive edema, erythema secondary to infection, cellulitis on the third toe and dorsal aspect of the foot. Light toe sensation was noted to be absent secondary to diabetic polyneuropathy. Otherwise, the patient denies any other symptoms. No chest pain, no palpitations, no shortness of breath, coughing or wheezing and no fevers. ASSESSMENT: At this time, diabetic foot ulcer, gangrene to third toe distal aspect of the left foot, peripheral vascular disease. PLAN: At this moment, the patient has been recommended to continue at this moment with antibiotics. Possibly, the patient will need amputation of this toe in the next week. We will determine the feasibility of this amputation by reviewing vascular studies and other testing to be done on the patient and then we will make further recommendations. Continue IV antibiotics, local wound care, Betadine paint to the toe and keep open to air dry at this time. TID: [id number] RECEIPT: [id number]
[2025-01-16] VITALS (8 sets, daily range): BP systolic 113–146; BP diastolic 69–90; PULSE 66–79; RESP 16–20; TEMP 98.2–99.1; O2SAT 99–100
--- NOTE | 2025-01-16 09:32 | PN ---
[facility] PROGRESS NOTE Date of Service: Jan 16, 2025 Time of Service: 09:27 SUBJECTIVE: This is a 54-year-old male Northern Irish-speaking, with past medical history of diabetes, hypertension, peripheral vascular disease status post right tibial artery with angioplasty and osteomyelitis of the right 4th toe with amputation who presented to the ED for complaints of right foot pain /swelling and right 3rd toe necrosis which started 1 week ago. Patient unable to determine how it started because he said he has neuropathy and he noticed a week ago it started hurting and the wound looks getting worse so he decided to come to be evaluated. Upon arrival to ER vital signs temperature 101.8, heart rate 104, blood pressure 154/85 saturation 98% on room air. In the ER Labs: Hemoglobin 12, hematocrit 35, platelet count 206. Sodium 132, chloride 94, glucose 230. Chest x-ray result revealed no acute pulmonary infiltrate is seen. Right Foot x-ray result revealed there is 3rd transmetatarsal amputation. Vascular calcifications are seen. Evaluation for osteomyelitis is limited with radiographs. There is no acute displaced fracture or dislocation. There is soft tissue swelling. Degenerative changes are seen. EKG result revealed sinus rhythm heart rate 94 with left ventricular hypertrophy inferior infarct old. While in the ER patient received Zosyn IV, vancomycin IV and received Tylenol 1000 mg p.o. and IV fluid resuscitation 30 mL/kilogram over 3 hours. Arterial ultrasound right lower extremity showing atherosclerotic disease, abnormal monophasic arterial waveform with the hyperemia seen in the right anterior tibial, posterior tibial, peroneal and dorsalis pedal arteries. Patient was for further medical management. Today patient is alert oriented x3, hemodynamically stable, getting good pain control with current medical management, getting IV antibiotics during my visit 01/16 patient is seen and examined at bedside, no acute events overnight, alert oriented x3, hemodynamically stable, getting IV antibiotics. Patient evaluated by department clerk, and patient denied amputation of the stroke, next week. Arterial ultrasound showing atherosclerotic disease, abnormal monophasic arterial waveforms with hyperemia in the right anterior tibial, posterior tibial, peroneal and dorsalis pedal arteries. We will request Cardiology consultation. We will continue with aspirin 81 mg p.o. daily. Continue heparin 5000 units subcutaneously q.12 hours. We will order MRI of the right foot. REVIEW OF SYSTEMS CONSTITUTIONAL: Positive fever and chills Denies or night sweats. No unintentional weight loss reported. NEUROLOGICAL: Denies headache, amaurosis fugax, motor weakness, sensory deficit, vertigo/spinning sensation, gait abnormalities, or tremors. ENT: No hearing loss, otalgia, otorrhea, rhinitis, rhinorrhea, hoarseness, or sore throat. CARDIOVASCULAR: Denies any exertional angina, dyspnea on exertion, orthopnea, paroxysmal nocturnal dyspnea, palpitations, life-threatening arrhythmias, claudication. PULMONARY: Denies any shortness of breath, cough, phlegm/sputum, hemoptysis, pleuritic chest pain. SLEEP: Denies morning headaches, daytime somnolence or napping. Denies difficulty falling asleep, staying asleep, waking from sleep. Denies knowledge of snoring. GASTROINTESTINAL: Denies any type of dysphagia to either liquids or solids. Denies nausea, vomiting, pyrosis, early satiety, abdominal pain, diarrhea, constipation, or changes in stool consistency or caliber. Denies coffee-ground emesis, hematemesis, hematochezia, or melanotic stools. GENITOURINARY: Denies frequency, urgency, nocturia, hematuria or incontinence (Storage/Irritative symptoms.) Low urinary stream, straining to void, urinary intermittency or hesitancy, splitting of the voiding stream, terminal dribbling. ENDOCRINOLOGIC: Denies polyuria, polydipsia, polyphagia or heat/cold intolerances. HEMATOLOGIC: Denies thrombophilia/previous clots, or coagulopathy/bleeding disorders. ONCOLOGIC: Denies personal history of malignancy. DERMATOLOGIC: Denies rashes or pruritus. PSYCHIATRIC: Denies any suicidal or homicidal ideation. Denies hallucinations. PHYSICAL EXAM GENERAL APPEARANCE: The patient is awake, alert, and oriented, in no acute cardiopulmonary distress. NEUROLOGICAL: Cranial nerves II-XII grossly intact. Motor is 5/5 in bilateral upper and lower extremities proximal to distal. No sensory deficits. HEENT: Face is symmetric. Pupils are equal and reactive. Extraocular movements are intact. NECK: Supple. No JVD. No thyromegaly. No submental, submandibular, pre- /postauricular, occipital or supraclavicular lymphadenopathy. CHEST: Normal chest expansion. No Telemetry. LUNGS: Absence of any rales, rhonchi or any wheezing. CARDIOVASCULAR: Regular. S1 and S2 normal. No appreciable rubs, murmurs or gallops. ABDOMEN: Soft, nontender, and nondistended. There is no rebound, voluntary guarding, or rigidity. : Deferred. No Shirley. EXTREMITIES: Non-edematous and not cyanotic. No clubbing. Good capillary refill. SKIN: Right 3rd toe necrotic wound Vital Signs (last 8hr) Date Time Temp Pulse Resp B/P (MAP) Pulse Ox O2 Delivery O2 Flow Rate FiO2 01/16/25 08:00 98.8 70 18 146/80 99 Room Air 01/16/25 04:29 98.2 66 16 113/69 100 Room Air 01/16/25 02:18 Room Air* 0 21 LABS: Laboratory: Test 01/16/25 08:34 01/16/25 05:28 01/15/25 04:26 01/14/25 18:58 Range/Units Vancomycin Level Trough 16.1 10.0-20.0 UG/ML Whole Blood Glucose 86 # 70-110 MG/DL White Blood Count 8.6 4.8-10.8 K/uL Red Blood Count 3.76 L 4.50-6.20 MIL/uL Hemoglobin 11.3 L 14.0-18.0 g/dL Hematocrit 33.4 L 42-54 % Mean Corpuscular Volume 88.8 79-99 fL Mean Corpuscular Hemoglobin 30.1 27.0-33.0 pg Mean Corpuscular Hemoglobin Concent 33.8 32.0-36.0 g/dL Red Cell Distribution Width 13.3 11.0-15.5 % Platelet Count 188 130-400 K/uL Mean Platelet Volume 9.7 7.5-10.5 fL Immature Granulocyte % (Auto) 0.3 0-1 % Neutrophils (%) (Auto) 73.2 40.0-77.0 % Lymphocytes (%) (Auto) 12.6 L 21.0-51.0 % Monocytes (%) (Auto) 10.7 3.0-13.0 % Eosinophils (%) (Auto) 2.6 0.0-8.0 % Basophils (%) (Auto) 0.6 0.0-5.0 % Neutrophils # (Auto) 6.3 1.8-7.7 K/uL Lymphocytes # (Auto) 1.1 1.0-4.8 K/uL Monocytes # (Auto) 0.9 0.1-1.0 K/uL Eosinophils # (Auto) 0.22 0.00-0.70 K/uL Basophils # (Auto) 0.05 0.00-0.20 K/uL Absolute Immature Granulocyte (auto 0.03 0-1 K/uL Nucleated Red Blood Cells 0.0 0.0-0.19 % Prothrombin Time 10.8 9.6-11.6 SEC Prothromb Time International Ratio 1.02 0.85-1.15 Activated Partial Thromboplast Time 30.2 26.3-35.5 SEC Sodium Level 133 L 136-145 mmol/L Potassium Level 3.6 3.5-5.1 mmol/L Chloride Level 99 L 101-111 mmol/L Carbon Dioxide Level 26 21-32 mmol/L Blood Urea Nitrogen 11 7-18 mg/dL Creatinine 1.0 0.5-1.3 mg/dL Glomerular Filtration Rate Calc 89 >90 mL/min Random Glucose 192 H 70-105 mg/dL Hemoglobin A1c 9.6 H 4.0-6.0 % Estimated Average Glucose (eAG) 229 H 70-126 mg/dL Total Calcium 8.0 L 8.5-10.1 mg/dL Magnesium Level 1.70 L 1.80-2.40 mg/dL Total Bilirubin 0.8 0.2-1.0 mg/dL Aspartate Amino Transf (AST/SGOT) 20 10-37 U/L Alanine Aminotransferase (ALT/SGPT) 27 12-78 U/L Alkaline Phosphatase 52 50-136 U/L Total Protein 7.1 6.0-8.3 g/dL Albumin 2.8 L 3.5-5.0 g/dL Procalcitonin 0.11 0.05-0.5 ng/mL Erythrocyte Sedimentation Rate 51 H 0-20 MM/HR Lactic Acid Level 1.8 0.8-2.5 mmol/L Troponin I High Sensitivity 5 4-75 ng/L Current Medications Medications (Trade) Dose Ordered Sig/Apoorva Route PRN Reason Start Time Stop Time Status Last Admin Dose Admin Acetaminophen (TYLenol 325MG TAB) 650 mg Q4H PRN PO MILD PAIN (1-3) 01/14/25 22:00 02/13/25 21:59 Acetaminophen (TYLenol 325MG TAB) 650 mg Q6H PRN PO TEMPERATURE GREATER THAN 101.5 01/14/25 22:00 02/13/25 21:59 Acetaminophen/ Hydrocodone Bitart (NORco 5/325MG) 1 tab Q4H PRN PO MODERATE PAIN (4-6) 01/14/25 22:00 01/19/25 21:59 01/15/25 22:54 1 TAB Acetaminophen/ Hydrocodone Bitart (NORco 5/325MG) 2 tab Q4H PRN PO SEVERE PAIN (7-10) 01/14/25 22:00 01/19/25 21:59 Amlodipine Besylate (NorvASC 5MG TAB) 5 mg DAILY PO 01/16/25 09:00 02/15/25 08:59 Aspirin (Aspirin 81mg Chew Tab) 81 mg DAILY PO 01/16/25 09:00 02/15/25 08:59 Atorvastatin Calcium (LIPItor 40MG) 40 mg HS PO 01/15/25 21:00 02/14/25 20:59 01/15/25 22:51 40 MG Dextrose (D50w) 50 ml AD PRN IV HYPOGLYCEMIA PROTOCOL 01/14/25 22:00 02/13/25 21:59 Famotidine (Pepcid 20mg Tab) 20 mg BID PO 01/14/25 22:30 02/13/25 22:29 01/15/25 22:51 20 MG Glucagon (Glucagon 1mg Kit) 1 mg AD PRN IM HYPOGLYCEMIA PROTOCOL 01/14/25 22:00 02/13/25 21:59 Heparin Sodium (Porcine) (HEParin 5,000 UNIT VIAL) 5,000 unit Q12H SQ 01/14/25 22:00 02/13/25 21:59 01/15/25 23:05 5,000 UNIT Insulin Human Regular (humuLIN R 100 UNIT/ML 3ML) INSULIN SLIDING SCAL... ACHS SQ 01/15/25 07:30 02/14/25 07:29 01/15/25 22:48 6 UNIT Magnesium Sulfate 50 ml @ 0 mls/hr PROTOCOL IV 01/15/25 12:00 02/14/25 11:59 Magnesium Sulfate 50 ml @ 0 mls/hr PROTOCOL PRN IV OTHER [SEE ORDER COMMENTS] 01/14/25 22:00 01/15/25 11:50 DC 01/15/25 05:45 25 MLS/HR Ondansetron HCl (zoFRAN 4MG INJ) 4 mg Q6H PRN IV NAUSEA/VOMITING 01/14/25 22:00 02/13/25 21:59 Piperacillin Sod/ Tazobactam Sod 50 ml @ 12.5 mls/hr ZOSY8 IV 01/15/25 05:00 01/25/25 04:59 01/16/25 04:31 12.5 MLS/HR Potassium Chloride 100 ml @ 100 mls/hr AD PRN IV POTASSIUM PROTOCOL 01/14/25 22:00 02/13/25 21:59 Potassium Chloride (K-Dur/Klor-Con 20meq) 20 meq AD PRN PO POTASSIUM PROTOCOL 01/14/25 22:00 02/13/25 21:59 Potassium Chloride (KCl 10% Elixir 20meq/15ml) 20 meq AD PRN PO POTASSIUM PROTOCOL 01/14/25 22:00 02/13/25 21:59 Sodium Chloride 1,000 ml @ 100 mls/hr Q10H IV 01/14/25 22:00 02/13/25 21:59 01/15/25 18:33 100 MLS/HR Vancomycin HCl 250 ml @ 125 mls/hr ONCE IV 01/14/25 22:00 01/14/25 22:08 DC Vancomycin HCl 250 ml @ 125 mls/hr Q12H IV 01/15/25 08:00 01/16/25 06:17 DC 01/15/25 22:00 125 MLS/HR Vancomycin HCl 250 ml @ 125 mls/hr Q12H IV 01/16/25 10:00 01/26/25 09:59 Vancomycin HCl (Vancomycin Protocol) 1 each AD IV 01/14/25 19:00 01/28/25 18:59 DIAGNOSTICS / RADIOLOGY: [ ] ASSESSMENT: Sirs with organ dysfunction POA Suspected right 3rd toe osteomyelitis POA Right foot pain POA Peripheral vascular disease POA Uncontrolled diabetes POA Chronic anemia POA Pseudohyponatremia POA PLAN: Patient remains Admitted to the medical floor Continue the patient on broad-spectrum IV antibiotics Infectious disease consultation requested, noted and appreciated, continue broad-spectrum antibiotics Podiatry consultation requested, input noted and appreciated, the patient may require amputation. We will request Cardiology consultation. We will order MRI of the right foot. NEURO: Minimize central acting medications as possible. Fall Precautions. Well lighted room through the day and minimize interruptions through the night to prevent acute delirium. PULMONARY: Supplemental 02 as needed BiPAP as necessary, for respiratory distress Titrate Fio2 to keep Spo2 > or = 90% DuoNebs and CPT as needed IS hourly while awake for pulmonary hygiene prn Out of bed to chair as tolerated Maintain aspiration precautions at all times CARDIOVASCULAR: Follow hemodynamics. Vital signs per facility protocol GI & NUTRITION: Continue nutritional support Aspirations precautions Prokinetic agents and laxatives as needed KIDNEYS & ELECTROLYTES: Strict monitoring of intake and output Daily weights Avoid nephrotoxic agents Monitor electrolytes and replace as needed Goal urine output of 30mL/hr or 0.5mL/kg/hr Medications to be dosed according to renal function. Avoid contrast if possible ENDOCRINE: Maintain blood glucose between 100-180 at all times. Insulin sliding scale for blood glucose management Hypoglycemia and hyperglycemia protocol in place INFECTIOUS DISEASE: Trend temperature, WBC and procalcitonin level Follow cultures, deescalate antibiotics as soon as possible. Panculture if new onset fever HEMATOLOGY & COAGULATION: Monitor H&H. Keep Hgb > 7 Transfuse 1 unit of PRBC for Hgb < 7 Transfuse 1 pack of platelets of platelets < 20, 000 Watch for any signs and symptoms of bleeding SKIN: Pressure ulcer prevention per facility protocol Specialty mattress as needed ORTHO/REHAB Continue PT/OT PRN: MEDICATIONS Tylenol 650 mg po every 4 hrs for fever zofran 4 mg IV every 6 hrs for n/v Hydralazine 5 mg IV every 4 hrs systolic pressure > 160 bowel regiment: lactulose 20 gm PO BID PRN constipation Supportive measures: Continue GI and DVT prophylaxis Disposition: Pending improvement in clinical condition All questions answered time spent: > 35 min ONOFRE CARABALLO MD Jan 16, 2025 09:32
[2025-01-16] MEDS: VANCOMYCIN 1G/250ML KIT 250 ML IV SCH (10:13)
[2025-01-16] MEDS: amLODIPine 5 MG TAB PO SCH (10:21)
[2025-01-16] MEDS: ASPIRIN 81MG CHEW TAB PO SCH (10:21)
[2025-01-16 10:29] LABS: HEMATOCRIT 33.8 % (42-54); MEAN CORPUSCULAR HEMOGLOBIN 30.8 pg (27.0-33.0); MEAN CORPUSCULAR HGB CONC 34.6 g/dL (32.0-36.0); MEAN CORPUSCULAR VOLUME 88.9 fL (79-99); RED BLOOD CELL COUNT(AUTO) 3.8 MIL/uL (4.50-6.20); RED CELL DISTRIBUTION WIDTH 13.2 % (11.0-15.5); WHITE BLOOD COUNT (AUTO) 6.1 K/uL (4.8-10.8)
[2025-01-16 10:58] LABS: ALBUMIN 2.6 g/dL (3.5-5.0); BILIRUBIN,TOTAL 0.4 mg/dL (0.2-1.0); TOTAL PROTEIN, SERUM 7.2 g/dL (6.0-8.3)
--- NOTE | 2025-01-16 12:47 | PN ---
PROGRESS NOTE Date of Service: Jan 16, 2025 Time of Service: 12:40 SUBJECTIVE: Patient seen for follow up on gangrene toe the right 3rd toe cellulitis improving gangrene on toe still present. REVIEW OF SYSTEMS CONSTITUTIONAL: Denies fever, chills, or fatigue. HEAD/FACE: No signs of trauma. EENT: Denies eye pain, blurred vision, double vision, or light sensitivity. RESPIRATORY: Denies shortness of breath, cough, wheezing CARDIOVASCULAR: Denies chest pain, palpitation, syncope GASTROINTESTINAL/ABDOMINAL: Denies abdominal pain, constipation, diarrhea, nausea or vomiting GENITOURINARY: Denies dysuria or hematuria. MUSCULOSKELETAL: Denies joint pain, tenderness, or trauma. INTEGUMENTARY: Gangrene 3rd toe right foot NEUROLOGICAL/PSYCH: Denies anxiety, depression, heat or cold intolerance. PHYSICAL EXAM EYES: Anicteric. Pupils equal and reactive. HENT: No oral thrush seen, moist Oral mucosa NECK: Supple, no JVD or thyromegaly. LUNGS: Good air entry. No rales, no rhonchi. CARDIOVASCULAR: S1, S2 regular. No murmur heard. ABDOMEN: Soft, non tender, bowel sounds present, no organomegaly CENTRAL NERVOUS SYSTEM: Awake, alert, oriented x 3. No focal deficits. SKIN: No rashes, no swelling. LYMPHATICS: No peripheral lymphadenopathy MUSCULOSKELETAL: No joint swelling, erythema or tenderness. EXTREMITIES: Gangrene 3rd toe right foot BACK: No deformity, no pressure ulcer. GENITOURINARY: No dysuria or hematuria Vital Signs (last 8hr) Date Time Temp Pulse Resp B/P (MAP) Pulse Ox O2 Delivery O2 Flow Rate FiO2 01/16/25 08:00 98.8 70 18 146/80 99 Room Air LABS: Laboratory: Test 01/16/25 11:32 01/16/25 10:22 01/16/25 08:34 01/15/25 04:26 Range/Units Whole Blood Glucose 146 #H 70-110 MG/DL White Blood Count 6.1 4.8-10.8 K/uL Red Blood Count 3.80 L 4.50-6.20 MIL/uL Hemoglobin 11.7 L 14.0-18.0 g/dL Hematocrit 33.8 L 42-54 % Mean Corpuscular Volume 88.9 79-99 fL Mean Corpuscular Hemoglobin 30.8 27.0-33.0 pg Mean Corpuscular Hemoglobin Concent 34.6 32.0-36.0 g/dL Red Cell Distribution Width 13.2 11.0-15.5 % Platelet Count 206 130-400 K/uL Mean Platelet Volume 9.3 7.5-10.5 fL Nucleated Red Blood Cells 0.0 0.0-0.19 % Sodium Level 133 L 136-145 mmol/L Potassium Level 4.0 3.5-5.1 mmol/L Chloride Level 99 L 101-111 mmol/L Carbon Dioxide Level 25 21-32 mmol/L Blood Urea Nitrogen 8 7-18 mg/dL Creatinine 1.0 0.5-1.3 mg/dL Glomerular Filtration Rate Calc 89 >90 mL/min Random Glucose 150 H 70-105 mg/dL Total Calcium 8.1 L 8.5-10.1 mg/dL Magnesium Level 2.00 1.80-2.40 mg/dL Total Bilirubin 0.4 0.2-1.0 mg/dL Aspartate Amino Transf (AST/SGOT) 17 10-37 U/L Alanine Aminotransferase (ALT/SGPT) 19 12-78 U/L Alkaline Phosphatase 50 50-136 U/L Total Protein 7.2 6.0-8.3 g/dL Albumin 2.6 L 3.5-5.0 g/dL Vancomycin Level Trough 16.1 10.0-20.0 UG/ML Immature Granulocyte % (Auto) 0.3 0-1 % Neutrophils (%) (Auto) 73.2 40.0-77.0 % Lymphocytes (%) (Auto) 12.6 L 21.0-51.0 % Monocytes (%) (Auto) 10.7 3.0-13.0 % Eosinophils (%) (Auto) 2.6 0.0-8.0 % Basophils (%) (Auto) 0.6 0.0-5.0 % Neutrophils # (Auto) 6.3 1.8-7.7 K/uL Lymphocytes # (Auto) 1.1 1.0-4.8 K/uL Monocytes # (Auto) 0.9 0.1-1.0 K/uL Eosinophils # (Auto) 0.22 0.00-0.70 K/uL Basophils # (Auto) 0.05 0.00-0.20 K/uL Absolute Immature Granulocyte (auto 0.03 0-1 K/uL Prothrombin Time 10.8 9.6-11.6 SEC Prothromb Time International Ratio 1.02 0.85-1.15 Activated Partial Thromboplast Time 30.2 26.3-35.5 SEC Hemoglobin A1c 9.6 H 4.0-6.0 % Estimated Average Glucose (eAG) 229 H 70-126 mg/dL Procalcitonin 0.11 0.05-0.5 ng/mL Test 01/14/25 18:58 Range/Units Erythrocyte Sedimentation Rate 51 H 0-20 MM/HR Lactic Acid Level 1.8 0.8-2.5 mmol/L Troponin I High Sensitivity 5 4-75 ng/L DIAGNOSTICS / RADIOLOGY: [ ] ASSESSMENT: Gangrene 3rd toe right foot PLAN: Plan for amputation 3rd toe right foot tomorrow. MANFR[facility] P [place] Case explained to the patient this is in an attempt to salvage the limb no guarantees offered. He agreed to the treatment plan. CHANDRAKANT REVELES DPM Jan 16, 2025 12:47
[2025-01-16] MEDS ORDERED: IOHEXOL-350 75 ML VIAL IV ONE (16:24)
[2025-01-16] MEDS ORDERED: IOHEXOL-350 50ML VIAL IV ONE (16:25)
[2025-01-16] MEDS ORDERED: GADOTERATE MEGLUMINE 10 MMOL/20 ML VIAL IV ONE (17:14)
[2025-01-16] MEDS: metFORmin HCL 500 MG TABLET PO SCH (19:30)
--- NOTE | 2025-01-16 19:31 | NUR ---
metformin held pt had cta today
[2025-01-16] MEDS: HYDROcodone/APAP 5/325 1 TAB TABLET PO PRN (20:20)
--- NOTE | 2025-01-16 22:19 | CONS ---
[facility] CARDIOLOGY CONSULTATION REPORT Cardiology consultation note dictated for Norbert Alanis MD Primary sales and leasing consultant: Chano Rivera MD Date Patient Seen: Jan 16, 2025 Requesting Physician: Chioma Fang MD Reason for Consultation: PAD History of Present Illness: This is a 54 year-old male with a past medical history of HTN, HLD, diabetes mellitus type II, s/p right 4th toe amputation on 03/31/2024, s/p balloon lithotripsy and balloon angioplasty of the distal right anterior tibial artery with residual 80% focal stenosis in the distal right posterior tibial artery on 04/02/2024, s/p excisional debridement of bone of the 4th metatarsal of the right foot with I/D on 04/23/2024, and noncompliance who presented to the ED with complaints of fever, right third toe edema, pain, and bruising that began one week ago. The patient was diagnosed with right third toe gangrene and cellulitis. He is to have an amputation tomorrow with Dr. Pereira. The patient stated he was unaware that he needed to continue DAPT and Atorvastatin and has not been taking them since running out months ago. Cardiology has been consulted for recommendations. RLE arterial Doppler revealed monophasic arterial waveforms in the right anterior tibial, posterior tibial, peroneal and dorsalis pedal arteries. MRI of the right foot is pending to be read. Past Medical History: As per HPI and summarized below Past Surgical History: S/p right 4th toe amputation on 03/31/2024 S/p excisional debridement of bone of the 4th metatarsal of the right foot with I/D on 04/23/2024 Family History: Noncontributory Social History: Refer to chart Habits: Refer to chart Home Meds: Refer to chart Current Meds: Current Medications Medications Dose Ordered Sig/Apoorva Start Time Stop Time Status Last Admin Acetaminophen 650 mg Q6H PRN 01/14/25 22:00 02/13/25 21:59 Acetaminophen 650 mg Q4H PRN 01/14/25 22:00 02/13/25 21:59 Ondansetron HCl 4 mg Q6H PRN 01/14/25 22:00 02/13/25 21:59 Famotidine 20 mg BID 01/14/25 22:30 02/13/25 22:29 01/16/25 20:07 Piperacillin Sod/ Tazobactam Sod 50 ml @ 12.5 mls/hr [id number] 01/15/25 05:00 01/25/25 04:59 01/16/25 20:07 Acetaminophen/ Hydrocodone Bitart 1 tab Q4H PRN 01/14/25 22:00 01/19/25 21:59 01/15/25 22:54 Acetaminophen/ Hydrocodone Bitart 2 tab Q4H PRN 01/14/25 22:00 01/19/25 21:59 01/16/25 20:20 Sodium Chloride 1,000 ml @ 100 mls/hr Q10H 01/14/25 22:00 02/13/25 21:59 01/16/25 17:54 Insulin Human Regular INSULIN SLIDING SCAL... ACHS 01/15/25 07:30 02/14/25 07:29 01/16/25 17:48 Dextrose 50 ml AD PRN 01/14/25 22:00 02/13/25 21:59 Glucagon 1 mg AD PRN 01/14/25 22:00 02/13/25 21:59 Potassium Chloride 100 ml @ 100 mls/hr AD PRN 01/14/25 22:00 02/13/25 21:59 Potassium Chloride 20 meq AD PRN 01/14/25 22:00 02/13/25 21:59 Potassium Chloride 20 meq AD PRN 01/14/25 22:00 02/13/25 21:59 Heparin Sodium (Porcine) 5,000 unit Q12H 01/14/25 22:00 02/13/25 21:59 01/16/25 10:10 Magnesium Sulfate 50 ml @ 0 mls/hr PROTOCOL 01/15/25 12:00 02/14/25 11:59 Amlodipine Besylate 5 mg DAILY 01/16/25 09:00 02/15/25 08:59 01/16/25 10:21 Aspirin 81 mg DAILY 01/16/25 09:00 02/15/25 08:59 01/16/25 10:21 Atorvastatin Calcium 40 mg HS 01/15/25 21:00 02/14/25 20:59 01/16/25 20:07 Vancomycin HCl 250 ml @ 125 mls/hr Q12H 01/16/25 10:00 01/26/25 09:59 01/16/25 10:13 Clopidogrel Bisulfate 75 mg DAILY 01/17/25 09:00 02/16/25 08:59 Glipizide 5 mg DAILY 01/17/25 09:00 02/16/25 08:59 Metformin HCl 500 mg BID 01/16/25 21:00 02/15/25 20:59 Review of Systems: CONST: No fever, fatigue, or weight changes. EYES: No recent vision problems. ENT: No congestion, ear pain, or sore throat. C/V: No chest pain, palpitations, or edema. RESP: No cough, congestion, wheezing or shortness of breath. GI: No abdominal pain, nausea, vomiting, constipation, or diarrhea : No incontinence or dysuria. SKIN: Admits to right foot discomfort NEURO: No headache, focal numbness or weakness, dizziness, or seizures. PSYCH: No depression or anxiety. HEME: No abnormal bruising or bleeding. LYMPH: No swollen glands. Physical Examination: GENERAL: No acute distress. HEAD: Normal with no signs of head trauma. EYES: PERRLA, EOMI, conjunctiva and sclera normal. ENT: Hearing grossly intact, normal oropharynx. NECK: Supple without JVD. There is no tenderness, lymphadenopathy, or masses. No thyromegaly. Normal carotid upstrokes without bruits. LUNGS: Clear breath sounds bilaterally. No wheezes, or rhonchi. HEART: Normal rate and rhythm. Normal S1 and S2 without murmurs, gallop or rub. VASC: Unable to palpate right DP pulse ABD: Bowel sounds normal, soft, nontender, no masses, no organomegaly. No audible bruits. : Not examined LYMPH: No lymphadenopathy noted. EXT: No clubbing or cyanosis. SKIN: Right third to dry gangrene, edema and erythema NEURO: Awake, alert, and oriented x3. No focal sensory or strength deficits noted. Vital Signs (last 8hr) Date Time Temp Pulse Resp B/P (MAP) Pulse Ox O2 Delivery O2 Flow Rate FiO2 01/16/25 20:10 100 Room Air* 0 21 01/16/25 20:00 99.1 79 20 132/90 100 Room Air 01/16/25 16:00 98.4 74 18 135/81 99 Room Air Laboratory: Hematology Labs: Test 01/16/25 10:22 01/15/25 04:26 Range/Units White Blood Count 6.1 4.8-10.8 K/uL Red Blood Count 3.80 L 4.50-6.20 MIL/uL Hemoglobin 11.7 L 14.0-18.0 g/dL Hematocrit 33.8 L 42-54 % Mean Corpuscular Volume 88.9 79-99 fL Mean Corpuscular Hemoglobin 30.8 27.0-33.0 pg Mean Corpuscular Hemoglobin Concent 34.6 32.0-36.0 g/dL Red Cell Distribution Width 13.2 11.0-15.5 % Platelet Count 206 130-400 K/uL Mean Platelet Volume 9.3 7.5-10.5 fL Nucleated Red Blood Cells 0.0 0.0-0.19 % Immature Granulocyte % (Auto) 0.3 0-1 % Neutrophils (%) (Auto) 73.2 40.0-77.0 % Lymphocytes (%) (Auto) 12.6 L 21.0-51.0 % Monocytes (%) (Auto) 10.7 3.0-13.0 % Eosinophils (%) (Auto) 2.6 0.0-8.0 % Basophils (%) (Auto) 0.6 0.0-5.0 % Neutrophils # (Auto) 6.3 1.8-7.7 K/uL Lymphocytes # (Auto) 1.1 1.0-4.8 K/uL Monocytes # (Auto) 0.9 0.1-1.0 K/uL Eosinophils # (Auto) 0.22 0.00-0.70 K/uL Basophils # (Auto) 0.05 0.00-0.20 K/uL Absolute Immature Granulocyte (auto 0.03 0-1 K/uL Chemistry Labs: Test 01/16/25 17:43 01/16/25 10:22 01/15/25 04:26 Range/Units Whole Blood Glucose 214 H 70-110 MG/DL Sodium Level 133 L 136-145 mmol/L Potassium Level 4.0 3.5-5.1 mmol/L Chloride Level 99 L 101-111 mmol/L Carbon Dioxide Level 25 21-32 mmol/L Blood Urea Nitrogen 8 7-18 mg/dL Creatinine 1.0 0.5-1.3 mg/dL Glomerular Filtration Rate Calc 89 >90 mL/min Random Glucose 150 H 70-105 mg/dL Total Calcium 8.1 L 8.5-10.1 mg/dL Magnesium Level 2.00 1.80-2.40 mg/dL Total Bilirubin 0.4 0.2-1.0 mg/dL Aspartate Amino Transf (AST/SGOT) 17 10-37 U/L Alanine Aminotransferase (ALT/SGPT) 19 12-78 U/L Alkaline Phosphatase 50 50-136 U/L Total Protein 7.2 6.0-8.3 g/dL Albumin 2.6 L 3.5-5.0 g/dL Hemoglobin A1c 9.6 H 4.0-6.0 % Estimated Average Glucose (eAG) 229 H 70-126 mg/dL Procalcitonin 0.11 0.05-0.5 ng/mL Coagulation Labs: Test 01/15/25 04:26 Range/Units Prothrombin Time 10.8 9.6-11.6 SEC Prothromb Time International Ratio 1.02 0.85-1.15 Activated Partial Thromboplast Time 30.2 26.3-35.5 SEC Diagnostics / Radiology: Impression and Plan: PAD, Hartley category V symptoms to the right foot RLE cellulitis HTN HLD Diabetes mellitus type II, uncontrolled A1c 9.6% S/p right 4th toe amputation on 03/31/2024 S/p balloon lithotripsy and balloon angioplasty of the distal right anterior tibial artery with residual 80% focal stenosis in the distal right posterior tibial artery on 04/02/2024 S/p excisional debridement of bone of the 4th metatarsal of the right foot with I/D on 04/23/2024 Noncompliance PAD, Hartley category V symptoms to the right foot RLE arterial Doppler revealed monophasic arterial waveforms in the right anterior tibial, posterior tibial, peroneal and dorsalis pedal arteries. MRI of the right foot is pending to be read. -Continue DAPT and Atorvastatin -Continue aggressive wound care and IV ABX -He is to have an amputation tomorrow with Dr. Pereira. -Further recommendation with results of the CT of the abd aorta with BLE runoff JOELLE MARTINEZ Jan 16, 2025 22:19 NORBERT ALANIS MD Jan 17, 2025 08:27
--- NOTE | 2025-01-16 22:35 | HMCIMG ---
MR FOOT RIGHT WWO HISTORY: Osteomyelitis COMPARISON: 03/29/2024 TECHNIQUE: MRI of the right foot was performed utilizing multiple pulse sequences in axial, coronal and sagittal planes. Patient was given Clariscan through intravenous route. FINDINGS: Transmetatarsal amputation of fourth toe is seen. This is a suboptimal study due to extensive motion artifacts. There is soft tissue swelling of the third toe suggestive of cellulitis. Abnormal increased signal intensity is seen about the third toe suggestive of osteomyelitis. Degenerative changes are seen. IMPRESSION: 1. Findings suggestive of osteomyelitis and cellulitis involving third toe. This is a suboptimal study due to extensive motion artifacts.
--- NOTE | 2025-01-16 23:25 | HMCIMG ---
CT ANGIO ABD AORTA W RUNOFF HISTORY: Peripheral arterial disease COMPARISON: None TECHNIQUE: CT angiography of the abdomen and pelvis and bilateral lower extremities was obtained using angiographic technique with maximum intensity projection reconstruction images. Patient was given 125 cc of Omnipaque through intravenous route. Oral contrast was not given. FINDINGS: No pleural effusion is seen bilaterally. There is no evidence of parenchymal disease or pulmonary nodule of the visualized lower lungs. Degenerative changes of the thoracolumbar spine are present. The heart is borderline enlarged. Coronary artery calcifications are seen. The liver, spleen, adrenal glands and pancreas are unremarkable. There is no evidence of hydronephrosis bilaterally. Bilateral renal vascular calcifications are seen. There is diverticulosis Fecal material is seen in the colon. There are normal size retroperitoneal and mesenteric lymph nodes. No ascites is seen. Atherosclerotic changes are present. There is diffuse atherosclerotic disease. No evidence of abdominal aortic aneurysm is seen. The celiac, superior mesenteric and bilateral renal arteries are grossly patent. The visualized portion of the iliac and femoral arterial systems are also grossly patent. Extensive vascular calcifications are seen. Popliteal, anterior tibial and peroneal arteries are grossly patent bilaterally. Right posterior tibial artery is patent. There is occlusion of the left posterior tibial artery in the mid calf level. Pelvic sidewalls are symmetric bilaterally. Bladder is well distended without wall thickening. IMPRESSION: 1. Atherosclerosis. Occlusion of left posterior tibial artery at mid calf level. CT was performed with one or more following dose reduction techniques: automated exposure control, adjustment of the mA and kv according to patient's size, or use of a iterative reconstruction technique.
[2025-01-17] VITALS (23 sets, daily range): BP systolic 90–159; BP diastolic 57–86; PULSE 52–87; RESP 15–20; TEMP 97.5–98.8; O2SAT 100
--- NOTE | 2025-01-17 02:59 | PN ---
INFECTIOUS DISEASE FOLLOWUP NOTE DATE OF SERVICE: 01/16/2025 SUBJECTIVE: The patient is seen and examined at bedside today. The patient has no fevers, no chills. No sore throat or rhinorrhea. No joint swelling, no redness. The patient has been seen by Podiatry amputation of the right fourth toe. PHYSICAL EXAMINATION: VITAL SIGNS: Temperature 97.2. EYES: No icterus. Pupils are equal and reactive. HENT: No oral thrush seen. Moist oral mucosa. NECK: Supple. No JVD. No thyromegaly. LUNGS: Good air entry. No rales. No rhonchi. CARDIOVASCULAR: S1 and S2 regular. No murmur heard. ABDOMEN: Full, soft, nontender. Bowel sounds are present. CENTRAL NERVOUS SYSTEM: Awake, alert, oriented x 3. No focal deficits. SKIN: No rashes. No itchiness. EXTREMITIES: Some gangrene involving the right third toe. LABORATORY DATA: Right foot wound culture growing . ASSESSMENT: A 54-year-old male with multiple problems include: * Right third toe osteomyelitis. * Diabetic foot ulcers. * Cellulitis. * Hypertension. * . PLAN: * Continue wound care. * Continue pain management. * Continue antidiabetic. * Continue Zosyn. * Continue vancomycin. TID: [id number] RECEIPT: [id number]
[2025-01-17 04:07] LABS: HEMATOCRIT 33.3 % (42-54); MEAN CORPUSCULAR HEMOGLOBIN 30.4 pg (27.0-33.0); MEAN CORPUSCULAR HGB CONC 33.6 g/dL (32.0-36.0); MEAN CORPUSCULAR VOLUME 90.5 fL (79-99); RED BLOOD CELL COUNT(AUTO) 3.68 MIL/uL (4.50-6.20); RED CELL DISTRIBUTION WIDTH 13.2 % (11.0-15.5); WHITE BLOOD COUNT (AUTO) 5.2 K/uL (4.8-10.8)
[2025-01-17] MEDS: MAGNESIUM 2GM PREMIX 50ML 50 ML IV SCH (05:02)
[2025-01-17] MEDS ORDERED: glipiZIDE XL 5MG TAB PO SCH (09:00)
[2025-01-17] MEDS ORDERED: FENTanyl CITRate PF 50 MCG/1 ML 2ML VIAL ONE (09:04)
[2025-01-17] MEDS ORDERED: LIDOCAINE PF 100MG/5ML (2%) SYRINGE 5ML ONE (09:04)
[2025-01-17] MEDS ORDERED: proPOFol 10 MG/ML 20ML VIAL IV ONE (09:04)
[2025-01-17] MEDS ORDERED: MIDAZOLAM HCL 1 MG/ML 2ML VIAL ONE (09:04)
[2025-01-17] MEDS ORDERED: dexaMETHasone SOD PHOSPHATE 4 MG/ML 1ML VIAL ONE (09:05)
[2025-01-17] MEDS ORDERED: ondanSETRON 4MG INJ ONE (09:06)
[2025-01-17] MEDS ORDERED: BUPIvacaine/PF 0.5% 30ML VIAL ONE (09:07)
[2025-01-17] MEDS ORDERED: LIDOCAINE 1%-EPI 1:100,000 20 ML VIAL ONE (09:07)
[2025-01-17] MEDS: BUPIvacaine/PF 0.5% 30ML VIAL INJ ONE (09:26)
--- NOTE | 2025-01-17 09:45 | OP ---
Operative Note: DATE OF PROCEDURE: 01/17/25 SURGEON: CHANDRAKANT REVELES DPM ACID DIPPER: OR Tech ANESTHESIA: 0.25% bupivacaine total of 10 cc under IV sedation ANESTHESIOLOGIST/TRANSMISSION MECHANIC: Thor Centeno CRNA PREOPERATIVE DIAGNOSIS: Gangrene 3rd toe right foot POSTOPERATIVE DIAGNOSIS: Gangrene 3rd toe right foot SYNOPSIS: Patient admitted with gangrene 3rd toe right foot on IV antibiotics after cellulitis was resolved decision was made for amputation of the toe. This is an attempt to salvage the foot no guarantees were offered at this time patient has comorbidities of uncontrolled blood sugars and diabetes poor medical compliance PROCEDURE: Amputation of 3rd toe right foot at metatarsophalangeal joint level ESTIMATED BLOOD LOSS: 3 cc INDICATIONS: Gangrene 3rd toe right DESCRIPTION OF PROCEDURE: Patient was brought into operating room table placed in the supine position the right foot was prepped and draped in usual sterile fashion attention was directed towards the dorsal aspect of the 3rd toe right foot anesthesia was given at this time via local infiltration of 10 cc of bupivacaine 0.25%. At this moment then two semielliptical incisions were performed along the metatarsophalangeal joint area this was extended down to capsular level lateral collateral and medial collateral ligaments were transected at this time dorsal and plantar tendons or so were transected by this mean disarticulating the toe at the level of the metatarsophalangeal joint distal was sent over for pathological examination cultures and sensitivity were taken from the area and patient wound was irrigated with copious amounts of saline solution and reapproximated with 2-0 nylon in the simple fashion patient tolerated procedure and anesthesia well dressing was applied utilizing Adaptic 4x4s and Kerlix the patient was sent to recovery room then to the floor for continued medical management. With the future plan of patient to be discharged in the next 24-48 hours. CHANDRAKANT REVELES DPM Jan 17, 2025 09:45
--- NOTE | 2025-01-17 10:09 | PN ---
[facility] CARDIOLOGY PROGRESS NOTE Date Patient Seen: Jan 17, 2025 Time of Visit: 10:07 Interval History: [ no events] Physical Examination: GENERAL: [No acute distress.] HEAD: [Normal with no signs of head trauma.] EYES: [PERRLA, EOMI, conjunctiva and sclera normal.] ENT: [Hearing grossly intact, normal oropharynx.] NECK: [Supple without JVD. There is no tenderness, lymphadenopathy, or masses. No thyromegaly. Normal carotid upstrokes without bruits.] LUNGS: [Clear breath sounds bilaterally. There are right basilar rales one third of the way up the chest. No wheezes, or rhonchi.] HEART: [Normal rate and rhythm. Normal S1 and S2 without mumurs, gallop or rub.] VASC: [Peripheral pulses +2 bilaterally.] ABD: [Bowel sounds normal, soft, nontender, no masses, no organomegaly. No audible bruits.] : [Not examined] LYMPH: [No lymphadenopathy noted.] EXT: [gangrene involving the right third toe. NEURO: [Awake, alert, and oriented x3. No focal sensory or strength deficits no pancho.] Laboratory: [ ] Hematology Labs: Test 01/17/25 03:35 Range/Units White Blood Count 5.2 4.8-10.8 K/uL Red Blood Count 3.68 L 4.50-6.20 MIL/uL Hemoglobin 11.2 L 14.0-18.0 g/dL Hematocrit 33.3 L 42-54 % Mean Corpuscular Volume 90.5 79-99 fL Mean Corpuscular Hemoglobin 30.4 27.0-33.0 pg Mean Corpuscular Hemoglobin Concent 33.6 32.0-36.0 g/dL Red Cell Distribution Width 13.2 11.0-15.5 % Platelet Count 231 130-400 K/uL Mean Platelet Volume 9.2 7.5-10.5 fL Nucleated Red Blood Cells 0.0 0.0-0.19 % Chemistry Labs: Test 01/17/25 09:51 01/17/25 03:35 01/16/25 10:22 Range/Units Whole Blood Glucose 152 H 70-110 MG/DL Magnesium Level 1.80 1.80-2.40 mg/dL Sodium Level 133 L 136-145 mmol/L Potassium Level 4.0 3.5-5.1 mmol/L Chloride Level 99 L 101-111 mmol/L Carbon Dioxide Level 25 21-32 mmol/L Blood Urea Nitrogen 8 7-18 mg/dL Creatinine 1.0 0.5-1.3 mg/dL Glomerular Filtration Rate Calc 89 >90 mL/min Random Glucose 150 H 70-105 mg/dL Total Calcium 8.1 L 8.5-10.1 mg/dL Total Bilirubin 0.4 0.2-1.0 mg/dL Aspartate Amino Transf (AST/SGOT) 17 10-37 U/L Alanine Aminotransferase (ALT/SGPT) 19 12-78 U/L Alkaline Phosphatase 50 50-136 U/L Total Protein 7.2 6.0-8.3 g/dL Albumin 2.6 L 3.5-5.0 g/dL Diagnostics / Radiology: [Copy/Paste Echos/Imaging Report here] Impression and Plan: [PAD, Routt category V symptoms to the right foot RLE cellulitis HTN HLD Diabetes mellitus type II, uncontrolled A1c 9.6% S/p right 4th toe amputation on 03/31/2024 S/p balloon lithotripsy and balloon angioplasty of the distal right anterior tibial artery with residual 80% focal stenosis in the distal right posterior tibial artery on 04/02/2024 S/p excisional debridement of bone of the 4th metatarsal of the right foot with I/D on 04/23/2024 Noncompliance PAD, Osiris category V symptoms to the right foot RLE arterial Doppler revealed monophasic arterial waveforms in the right anterior tibial, posterior tibial, peroneal and dorsalis pedal arteries. MRI of the right foot: 1. Findings suggestive of osteomyelitis and cellulitis involving third toe. This is a suboptimal study due to extensive motion artifacts. -Continue DAPT and Atorvastatin -Continue aggressive wound care and IV ABX -He is to have an amputation with Dr. Pereira. -CTA aorta with bilateral run off: Occlusion of left posterior tibial artery at mid calf level. Will have Dr Morales evaluate patient on Sunday ] TONYA LORD MD Jan 17, 2025 10:09
[2025-01-17] MEDS: cloPIDOgrel 75MG TAB PO SCH (10:36)
--- NOTE | 2025-01-17 14:57 | PN ---
[facility] PROGRESS NOTE Date of Service: Jan 17, 2025 Time of Service: 14:53 SUBJECTIVE: This is a 54-year-old male [place]-speaking, with past medical history of diabetes, hypertension, peripheral vascular disease status post right tibial artery with angioplasty and osteomyelitis of the right 4th toe with amputation who presented to the ED for complaints of right foot pain /swelling and right 3rd toe necrosis which started 1 week ago. Patient unable to determine how it started because he said he has neuropathy and he noticed a week ago it started hurting and the wound looks getting worse so he decided to come to be evaluated. Upon arrival to ER vital signs temperature 101.8, heart rate 104, blood pressure 154/85 saturation 98% on room air. In the ER Labs: Hemoglobin 12, hematocrit 35, platelet count 206. Sodium 132, chloride 94, glucose 230. Chest x-ray result revealed no acute pulmonary infiltrate is seen. Right Foot x-ray result revealed there is 3rd transmetatarsal amputation. Vascular calcifications are seen. Evaluation for osteomyelitis is limited with radiographs. There is no acute displaced fracture or dislocation. There is soft tissue swelling. Degenerative changes are seen. EKG result revealed sinus rhythm heart rate 94 with left ventricular hypertrophy inferior infarct old. While in the ER patient received Zosyn IV, vancomycin IV and received Tylenol 1000 mg p.o. and IV fluid resuscitation 30 mL/kilogram over 3 hours. Arterial ultrasound right lower extremity showing atherosclerotic disease, abnormal monophasic arterial waveform with the hyperemia seen in the right anterior tibial, posterior tibial, peroneal and dorsalis pedal arteries. Patient was for further medical management. Today patient is alert oriented x3, hemodynamically stable, getting good pain control with current medical management, getting IV antibiotics during my visit 01/16 patient is seen and examined at bedside, no acute events overnight, alert oriented x3, hemodynamically stable, getting IV antibiotics. Patient evaluated by floating derrick operator, and patient denied amputation of the stroke, next week. Arterial ultrasound showing atherosclerotic disease, abnormal monophasic arterial waveforms with hyperemia in the right anterior tibial, posterior tibial, peroneal and dorsalis pedal arteries. We will request Cardiology consultation. We will continue with aspirin 81 mg p.o. daily. Continue heparin 5000 units subcutaneously q.12 hours. We will order MRI of the right foot. 01/17 patient seen at bedside, no acute events overnight. Pending amputation today with Podiatry, will follow up postprocedure. REVIEW OF SYSTEMS 12 point review of systems negative unless noted in HPI PHYSICAL EXAM GENERAL APPEARANCE: The patient is awake, alert, and oriented, in no acute cardiopulmonary distress. NEUROLOGICAL: Cranial nerves II-XII grossly intact. Motor is 5/5 in bilateral upper and lower extremities proximal to distal. No sensory deficits. HEENT: Face is symmetric. Pupils are equal and reactive. Extraocular movements are intact. NECK: Supple. No JVD. No thyromegaly. No submental, submandibular, pre-/postauricular, occipital or supraclavicular lymphadenopathy. CHEST: Normal chest expansion. No Telemetry. LUNGS: Absence of any rales, rhonchi or any wheezing. CARDIOVASCULAR: Regular. S1 and S2 normal. No appreciable rubs, murmurs or gallops. ABDOMEN: Soft, nontender, and nondistended. There is no rebound, voluntary guarding, or rigidity. : Deferred. No Shirley. EXTREMITIES: Non-edematous and not cyanotic. No clubbing. Good capillary refill. SKIN: Right 3rd toe necrotic wound Vital Signs (last 8hr) Date Time Temp Pulse Resp B/P (MAP) Pulse Ox O2 Delivery O2 Flow Rate FiO2 01/17/25 13:00 65 18 157/82 97 Room Air 01/17/25 12:00 60 18 159/86 98 Room Air 01/17/25 11:30 54 18 148/81 98 Room Air 01/17/25 11:00 53 18 143/79 96 Room Air 01/17/25 10:45 97.5 64 18 138/79 96 Room Air 01/17/25 10:30 97.5 63 18 126/76 96 Room Air 01/17/25 10:15 97.5 63 18 124/73 96 Room Air 01/17/25 10:14 97.5 62 16 115/65 98 Room Air 01/17/25 10:09 59 17 110/66 98 Room Air 01/17/25 10:04 56 16 107/62 98 Room Air 01/17/25 09:59 64 15 111/69 98 Room Air 10.0 01/17/25 09:54 53 15 103/63 99 Room Air 01/17/25 09:49 53 15 93/60 100 Nonrebreathing Mask 10.0 4/19/25 09:44 97.5 52 16 90/57 100 Nonrebreathing Mask 10.0 01/17/25 08:00 98.2 67 18 141/84 100 Room Air LABS: Laboratory: Test 01/17/25 11:34 01/17/25 03:35 01/16/25 10:22 01/16/25 08:34 Range/Units Whole Blood Glucose 148 H 70-110 MG/DL White Blood Count 5.2 4.8-10.8 K/uL Red Blood Count 3.68 L 4.50-6.20 MIL/uL Hemoglobin 11.2 L 14.0-18.0 g/dL Hematocrit 33.3 L 42-54 % Mean Corpuscular Volume 90.5 79-99 fL Mean Corpuscular Hemoglobin 30.4 27.0-33.0 pg Mean Corpuscular Hemoglobin Concent 33.6 32.0-36.0 g/dL Red Cell Distribution Width 13.2 11.0-15.5 % Platelet Count 231 130-400 K/uL Mean Platelet Volume 9.2 7.5-10.5 fL Nucleated Red Blood Cells 0.0 0.0-0.19 % Magnesium Level 1.80 1.80-2.40 mg/dL Sodium Level 133 L 136-145 mmol/L Potassium Level 4.0 3.5-5.1 mmol/L Chloride Level 99 L 101-111 mmol/L Carbon Dioxide Level 25 21-32 mmol/L Blood Urea Nitrogen 8 7-18 mg/dL Creatinine 1.0 0.5-1.3 mg/dL Glomerular Filtration Rate Calc 89 >90 mL/min Random Glucose 150 H 70-105 mg/dL Total Calcium 8.1 L 8.5-10.1 mg/dL Total Bilirubin 0.4 0.2-1.0 mg/dL Aspartate Amino Transf (AST/SGOT) 17 10-37 U/L Alanine Aminotransferase (ALT/SGPT) 19 12-78 U/L Alkaline Phosphatase 50 50-136 U/L Total Protein 7.2 6.0-8.3 g/dL Albumin 2.6 L 3.5-5.0 g/dL Vancomycin Level Trough 16.1 10.0-20.0 UG/ML Current Medications Medications (Trade) Dose Ordered Sig/Apoorva Route PRN Reason Start Time Stop Time Status Last Admin Dose Admin Acetaminophen (TYLenol 325MG TAB) 650 mg Q4H PRN PO MILD PAIN (1-3) 01/14/25 22:00 02/13/25 21:59 Acetaminophen (TYLenol 325MG TAB) 650 mg Q6H PRN PO TEMPERATURE GREATER THAN 101.5 01/14/25 22:00 02/13/25 21:59 Acetaminophen/ Hydrocodone Bitart (NORco 5/325MG) 1 tab Q4H PRN PO MODERATE PAIN (4-6) 01/14/25 22:00 01/19/25 21:59 01/15/25 22:54 1 TAB Acetaminophen/ Hydrocodone Bitart (NORco 5/325MG) 2 tab Q4H PRN PO SEVERE PAIN (7-10) 01/14/25 22:00 01/19/25 21:59 01/16/25 20:20 2 TAB Amlodipine Besylate (NorvASC 5MG TAB) 5 mg DAILY PO 01/16/25 09:00 02/15/25 08:59 01/17/25 08:46 5 MG Aspirin (Aspirin 81mg Chew Tab) 81 mg DAILY PO 01/16/25 09:00 02/15/25 08:59 01/17/25 10:35 81 MG Atorvastatin Calcium (LIPItor 40MG) 40 mg HS PO 01/15/25 21:00 02/14/25 20:59 01/16/25 20:07 40 MG Clopidogrel Bisulfate (plaVIX 75MG) 75 mg DAILY PO 01/17/25 09:00 02/16/25 08:59 01/17/25 10:36 75 MG Dextrose (D50w) 50 ml AD PRN IV HYPOGLYCEMIA PROTOCOL 01/14/25 22:00 02/13/25 21:59 Famotidine (Pepcid 20mg Tab) 20 mg BID PO 01/14/25 22:30 02/13/25 22:29 01/17/25 10:35 20 MG Glipizide (GLUCOtrol XL 5MG TAB) 5 mg DAILY PO 01/17/25 09:00 01/17/25 06:09 DC Glucagon (Glucagon 1mg Kit) 1 mg AD PRN IM HYPOGLYCEMIA PROTOCOL 01/14/25 22:00 02/13/25 21:59 Heparin Sodium (Porcine) (HEParin 5,000 UNIT VIAL) 5,000 unit Q12H SQ 01/14/25 22:00 02/13/25 21:59 01/17/25 10:47 5,000 UNIT Insulin Human Regular (humuLIN R 100 UNIT/ML 3ML) INSULIN SLIDING SCAL... ACHS SQ 01/15/25 07:30 02/14/25 07:29 01/16/25 17:48 3 UNIT Magnesium Sulfate 50 ml @ 0 mls/hr PROTOCOL IV 01/15/25 12:00 02/14/25 11:59 01/17/25 05:02 25 MLS/HR Magnesium Sulfate 50 ml @ 0 mls/hr PROTOCOL PRN IV OTHER [SEE ORDER COMMENTS] 01/14/25 22:00 01/15/25 11:50 DC 01/15/25 05:45 25 MLS/HR Metformin HCl (glucoPHAGE) 500 mg BID PO 01/16/25 21:00 01/17/25 06:09 DC Ondansetron HCl (zoFRAN 4MG INJ) 4 mg Q6H PRN IV NAUSEA/VOMITING 01/14/25 22:00 02/13/25 21:59 Piperacillin Sod/ Tazobactam Sod 50 ml @ 12.5 mls/hr ZOSY8 IV 01/15/25 05:00 01/25/25 04:59 01/17/25 13:19 12.5 MLS/HR Potassium Chloride 100 ml @ 100 mls/hr AD PRN IV POTASSIUM PROTOCOL 01/14/25 22:00 02/13/25 21:59 Potassium Chloride (K-Dur/Klor-Con 20meq) 20 meq AD PRN PO POTASSIUM PROTOCOL 01/14/25 22:00 02/13/25 21:59 Potassium Chloride (KCl 10% Elixir 20meq/15ml) 20 meq AD PRN PO POTASSIUM PROTOCOL 01/14/25 22:00 02/13/25 21:59 Sodium Chloride 1,000 ml @ 100 mls/hr Q10H IV 01/14/25 22:00 02/13/25 21:59 01/17/25 10:36 100 MLS/HR Vancomycin HCl 250 ml @ 125 mls/hr ONCE IV 01/14/25 22:00 01/14/25 22:08 DC Vancomycin HCl 250 ml @ 125 mls/hr Q12H IV 01/15/25 08:00 01/16/25 06:17 DC 01/15/25 22:00 125 MLS/HR Vancomycin HCl 250 ml @ 125 mls/hr Q12H IV 01/16/25 10:00 01/26/25 09:59 01/17/25 10:36 125 MLS/HR Vancomycin HCl (Vancomycin Protocol) 1 each AD IV 01/14/25 19:00 01/16/25 14:07 DC DIAGNOSTICS / RADIOLOGY: [ ] ASSESSMENT: Sirs with organ dysfunction POA Suspected right 3rd toe osteomyelitis POA Right foot pain POA Peripheral vascular disease POA Uncontrolled diabetes POA Chronic anemia POA Pseudohyponatremia POA PLAN: Patient remains Admitted to the medical floor Continue the patient on broad-spectrum IV antibiotics Continue aspirin 81mg q24h Continue plavix 75mg q24h Continue amlodipine 5mg q24h Continue atorvastatin 40mg HS Continue Heparin 5000 BID Infectious disease consultation requested, noted and appreciated, continue broad-spectrum antibiotics Podiatry consultation requested, input noted and appreciated, the patient may require amputation. Pending amputation, will follow up post procedure Cardiology consulted, appreciate recommendations Disposition: Pending amputation, improvement in clinical status JOSH RAMIREZ MD Jan 17, 2025 14:57
[2025-01-18] VITALS (8 sets, daily range): BP systolic 125–149; BP diastolic 67–77; PULSE 56–68; RESP 16–20; TEMP 97.4–99.1; O2SAT 100
[2025-01-18 04:07] LABS: BASOPHILS # (AUTO) 0.03 K/uL (0.00-0.20); BASOPHILS % (AUTO) 0.4 % (0.0-5.0); EOSINOPHILS # (AUTO) 0.02 K/uL (0.00-0.70); EOSINOPHILS % (AUTO) 0.3 % (0.0-8.0); HEMATOCRIT 35.4 % (42-54); IMMATURE GRANULOCYTE ABSOLUTE 0.03 K/uL (0-1); LYMPHOCYTES # (AUTO) 1.1 K/uL (1.0-4.8); LYMPHOCYTES % (AUTO) 13.9 % (21.0-51.0); MEAN CORPUSCULAR HEMOGLOBIN 30.3 pg (27.0-33.0); MEAN CORPUSCULAR HGB CONC 33.6 g/dL (32.0-36.0); MEAN CORPUSCULAR VOLUME 90.1 fL (79-99); MONOCYTES # (AUTO) 0.8 K/uL (0.1-1.0); MONOCYTES % (AUTO) 10.1 % (3.0-13.0); NEUTROPHILS # (AUTO) 5.7 K/uL (1.8-7.7); NEUTROPHILS % (AUTO) 74.9 % (40.0-77.0); PLATELET COUNT (AUTO) 257 K/uL (130-400); RED BLOOD CELL COUNT(AUTO) 3.93 MIL/uL (4.50-6.20); RED CELL DISTRIBUTION WIDTH 12.9 % (11.0-15.5); WHITE BLOOD COUNT (AUTO) 7.6 K/uL (4.8-10.8)
[2025-01-18 04:21] LABS: CREATININE 1.2 mg/dL (0.5-1.3); PHOSPHORUS 3.4 mg/dL (2.5-4.9); POTASSIUM 4.4 mmol/L (3.5-5.1)
--- NOTE | 2025-01-18 09:28 | PN ---
[facility] CARDIOLOGY PROGRESS NOTE Date Patient Seen: Jan 18, 2025 Time of Visit: 09:28 Interval History: [ no events] Physical Examination: GENERAL: [No acute distress.] HEAD: [Normal with no signs of head trauma.] EYES: [PERRLA, EOMI, conjunctiva and sclera normal.] ENT: [Hearing grossly intact, normal oropharynx.] NECK: [Supple without JVD. There is no tenderness, lymphadenopathy, or masses. No thyromegaly. Normal carotid upstrokes without bruits.] LUNGS: [Clear breath sounds bilaterally. There are right basilar rales one third of the way up the chest. No wheezes, or rhonchi.] HEART: [Normal rate and rhythm. Normal S1 and S2 without mumurs, gallop or rub.] VASC: [Peripheral pulses +2 bilaterally.] ABD: [Bowel sounds normal, soft, nontender, no masses, no organomegaly. No audible bruits.] : [Not examined] LYMPH: [No lymphadenopathy noted.] EXT: [gangrene involving the right third toe. NEURO: [Awake, alert, and oriented x3. No focal sensory or strength deficits no pancho.] Laboratory: [ ] Hematology Labs: Test 01/18/25 03:59 Range/Units White Blood Count 7.6 4.8-10.8 K/uL Red Blood Count 3.93 L 4.50-6.20 MIL/uL Hemoglobin 11.9 L 14.0-18.0 g/dL Hematocrit 35.4 L 42-54 % Mean Corpuscular Volume 90.1 79-99 fL Mean Corpuscular Hemoglobin 30.3 27.0-33.0 pg Mean Corpuscular Hemoglobin Concent 33.6 32.0-36.0 g/dL Red Cell Distribution Width 12.9 11.0-15.5 % Platelet Count 257 130-400 K/uL Mean Platelet Volume 8.7 7.5-10.5 fL Immature Granulocyte % (Auto) 0.4 0-1 % Neutrophils (%) (Auto) 74.9 40.0-77.0 % Lymphocytes (%) (Auto) 13.9 L 21.0-51.0 % Monocytes (%) (Auto) 10.1 3.0-13.0 % Eosinophils (%) (Auto) 0.3 0.0-8.0 % Basophils (%) (Auto) 0.4 0.0-5.0 % Neutrophils # (Auto) 5.7 1.8-7.7 K/uL Lymphocytes # (Auto) 1.1 1.0-4.8 K/uL Monocytes # (Auto) 0.8 0.1-1.0 K/uL Eosinophils # (Auto) 0.02 0.00-0.70 K/uL Basophils # (Auto) 0.03 0.00-0.20 K/uL Absolute Immature Granulocyte (auto 0.03 0-1 K/uL Nucleated Red Blood Cells 0.0 0.0-0.19 % Chemistry Labs: Test 01/18/25 05:10 01/18/25 03:59 01/17/25 15:26 01/16/25 10:22 Range/Units Whole Blood Glucose 191 H 70-110 MG/DL Sodium Level 134 L 136-145 mmol/L Potassium Level 4.4 3.5-5.1 mmol/L Chloride Level 102 101-111 mmol/L Carbon Dioxide Level 26 21-32 mmol/L Blood Urea Nitrogen 11 7-18 mg/dL Creatinine 1.2 0.5-1.3 mg/dL Glomerular Filtration Rate Calc 72 >90 mL/min Random Glucose 211 H 70-105 mg/dL Total Calcium 8.3 L 8.5-10.1 mg/dL Phosphorus Level 3.4 2.5-4.9 mg/dL Magnesium Level 2.00 1.80-2.40 mg/dL Bedside Glucose Comment Notified Nurse Total Bilirubin 0.4 0.2-1.0 mg/dL Aspartate Amino Transf (AST/SGOT) 17 10-37 U/L Alanine Aminotransferase (ALT/SGPT) 19 12-78 U/L Alkaline Phosphatase 50 50-136 U/L Total Protein 7.2 6.0-8.3 g/dL Albumin 2.6 L 3.5-5.0 g/dL Diagnostics / Radiology: [Copy/Paste Echos/Imaging Report here] Impression and Plan: [PAD, Osborne category V symptoms to the right foot RLE cellulitis HTN HLD Diabetes mellitus type II, uncontrolled A1c 9.6% S/p right 4th toe amputation on 03/31/2024 S/p balloon lithotripsy and balloon angioplasty of the distal right anterior tibial artery with residual 80% focal stenosis in the distal right posterior tibial artery on 04/02/2024 S/p excisional debridement of bone of the 4th metatarsal of the right foot with I/D on 04/23/2024 Noncompliance PAD, Osiris category V symptoms to the right foot RLE arterial Doppler revealed monophasic arterial waveforms in the right ante rior tibial, posterior tibial, peroneal and dorsalis pedal arteries. MRI of the right foot: 1. Findings suggestive of osteomyelitis and cellulitis involving third toe. This is a suboptimal study due to extensive motion artifacts. -Continue DAPT and Atorvastatin -Continue aggressive wound care and IV ABX -He is to have an amputation with Dr. Pereira. -CTA aorta with bilateral run off: Occlusion of left posterior tibial artery at mid calf level. Will have Dr Morales evaluate patient on Sunday ] TONYA LORD MD Jan 18, 2025 09:28
--- NOTE | 2025-01-18 13:27 | PN ---
[facility] PROGRESS NOTE Date of Service: Jan 18, 2025 Time of Service: 13:01 SUBJECTIVE: This is a 54-year-old male [place]ambian-speaking, with past medical history of diabetes, hypertension, peripheral vascular disease status post right tibial artery with angioplasty and osteomyelitis of the right 4th toe with amputation who presented to the ED for complaints of right foot pain /swelling and right 3rd toe necrosis which started 1 week ago. Patient unable to determine how it started because he said he has neuropathy and he noticed a week ago it started hurting and the wound looks getting worse so he decided to come to be evaluated. Upon arrival to ER vital signs temperature 101.8, heart rate 104, blood pressure 154/85 saturation 98% on room air. In the ER Labs: Hemoglobin 12, hematocrit 35, platelet count 206. Sodium 132, chloride 94, glucose 230. Chest x-ray result revealed no acute pulmonary infiltrate is seen. Right Foot x-ray result revealed there is 3rd transmetatarsal amputation. Vascular calcifications are seen. Evaluation for osteomyelitis is limited with radiographs. There is no acute displaced fracture or dislocation. There is soft tissue swelling. Degenerative changes are seen. EKG result revealed sinus rhythm heart rate 94 with left ventricular hypertrophy inferior infarct old. While in the ER patient received Zosyn IV, vancomycin IV and received Tylenol 1000 mg p.o. and IV fluid resuscitation 30 mL/kilogram over 3 hours. Arterial ultrasound right lower extremity showing atherosclerotic disease, abnormal monophasic arterial waveform with the hyperemia seen in the right anterior tibial, posterior tibial, peroneal and dorsalis pedal arteries. Patient was for further medical management. Today patient is alert oriented x3, hemodynamically stable, getting good pain control with current medical management, getting IV antibiotics during my visit 01/16 patient is seen and examined at bedside, no acute events overnight, alert oriented x3, hemodynamically stable, getting IV antibiotics. Patient evaluated by design checker, and patient denied amputation of the stroke, next week. Arterial ultrasound showing atherosclerotic disease, abnormal monophasic arterial waveforms with hyperemia in the right anterior tibial, posterior tibial, peroneal and dorsalis pedal arteries. We will request Cardiology consultation. We will continue with aspirin 81 mg p.o. daily. Continue heparin 5000 units subcutaneously q.12 hours. We will order MRI of the right foot. 01/17 patient seen at bedside, no acute events overnight. Pending amputation today with Podiatry, will follow up postprocedure. 01/18 patient seen at bedside, no acute events overnight. He is s/p amputation, pain is controlled. Wound care per podiatry. PT consulted for evaluation and discharge recommendations. ID to provide discharge antibiotic recommendations. Labs are relatively unremarkable REVIEW OF SYSTEMS 12 point review of systems negative unless noted in HPI PHYSICAL EXAM GENERAL APPEARANCE: The patient is awake, alert, and oriented, in no acute cardiopulmonary distress. NEUROLOGICAL: Cranial nerves II-XII grossly intact. Motor is 5/5 in bilateral upper and lower extremities proximal to distal. No sensory deficits. HEENT: Face is symmetric. Pupils are equal and reactive. Extraocular movements are intact. NECK: Supple. No JVD. No thyromegaly. No submental, submandibular, pre- /postauricular, occipital or supraclavicular lymphadenopathy. CHEST: Normal chest expansion. No Telemetry. LUNGS: Absence of any rales, rhonchi or any wheezing. CARDIOVASCULAR: Regular. S1 and S2 normal. No appreciable rubs, murmurs or gallops. ABDOMEN: Soft, nontender, and nondistended. There is no rebound, voluntary guarding, or rigidity. : Deferred. No Shirley. EXTREMITIES: Non-edematous and not cyanotic. No clubbing. Good capillary refill. SKIN: Right 3rd toe necrotic wound Vital Signs (last 8hr) Date Time Temp Pulse Resp B/P (MAP) Pulse Ox O2 Delivery O2 Flow Rate FiO2 01/18/25 12:00 98.8 59 20 149/75 3100 Room Air 01/18/25 07:55 98.2 68 20 126/75 100 Room Air LABS: Laboratory: Test 01/18/25 11:14 01/18/25 09:13 01/18/25 03:59 01/17/25 15:26 Range/Units Whole Blood Glucose 221 H 70-110 MG/DL Vancomycin Level Trough 18.9 10.0-20.0 UG/ML White Blood Count 7.6 4.8-10.8 K/uL Red Blood Count 3.93 L 4.50-6.20 MIL/uL Hemoglobin 11.9 L 14.0-18.0 g/dL Hematocrit 35.4 L 42-54 % Mean Corpuscular Volume 90.1 79-99 fL Mean Corpuscular Hemoglobin 30.3 27.0-33.0 pg Mean Corpuscular Hemoglobin Concent 33.6 32.0-36.0 g/dL Red Cell Distribution Width 12.9 11.0-15.5 % Platelet Count 257 130-400 K/uL Mean Platelet Volume 8.7 7.5-10.5 fL Immature Granulocyte % (Auto) 0.4 0-1 % Neutrophils (%) (Auto) 74.9 40.0-77.0 % Lymphocytes (%) (Auto) 13.9 L 21.0-51.0 % Monocytes (%) (Auto) 10.1 3.0-13.0 % Eosinophils (%) (Auto) 0.3 0.0-8.0 % Basophils (%) (Auto) 0.4 0.0-5.0 % Neutrophils # (Auto) 5.7 1.8-7.7 K/uL Lymphocytes # (Auto) 1.1 1.0-4.8 K/uL Monocytes # (Auto) 0.8 0.1-1.0 K/uL Eosinophils # (Auto) 0.02 0.00-0.70 K/uL Basophils # (Auto) 0.03 0.00-0.20 K/uL Absolute Immature Granulocyte (auto 0.03 0-1 K/uL Nucleated Red Blood Cells 0.0 0.0-0.19 % Sodium Level 134 L 136-145 mmol/L Potassium Level 4.4 3.5-5.1 mmol/L Chloride Level 102 101-111 mmol/L Carbon Dioxide Level 26 21-32 mmol/L Blood Urea Nitrogen 11 7-18 mg/dL Creatinine 1.2 0.5-1.3 mg/dL Glomerular Filtration Rate Calc 72 >90 mL/min Random Glucose 211 H 70-105 mg/dL Total Calcium 8.3 L 8.5-10.1 mg/dL Phosphorus Level 3.4 2.5-4.9 mg/dL Magnesium Level 2.00 1.80-2.40 mg/dL Bedside Glucose Comment Notified Nurse Current Medications Medications (Trade) Dose Ordered Sig/Apoorva Route PRN Reason Start Time Stop Time Status Last Admin Dose Admin Acetaminophen (TYLenol 325MG TAB) 650 mg Q4H PRN PO MILD PAIN (1-3) 01/14/25 22:00 02/13/25 21:59 Acetaminophen (TYLenol 325MG TAB) 650 mg Q6H PRN PO TEMPERATURE GREATER THAN 101.5 01/14/25 22:00 02/13/25 21:59 Acetaminophen/ Hydrocodone Bitart (NORco 5/325MG) 1 tab Q4H PRN PO MODERATE PAIN (4-6) 01/14/25 22:00 01/19/25 21:59 01/15/25 22:54 1 TAB Acetaminophen/ Hydrocodone Bitart (NORco 5/325MG) 2 tab Q4H PRN PO SEVERE PAIN (7-10) 01/14/25 22:00 01/19/25 21:59 01/17/25 23:33 2 TAB Amlodipine Besylate (NorvASC 5MG TAB) 5 mg DAILY PO 01/16/25 09:00 02/15/25 08:59 01/18/25 08:07 5 MG Aspirin (Aspirin 81mg Chew Tab) 81 mg DAILY PO 01/16/25 09:00 02/15/25 08:59 01/18/25 08:07 81 MG Atorvastatin Calcium (LIPItor 40MG) 40 mg HS PO 01/15/25 21:00 02/14/25 20:59 01/17/25 20:05 40 MG Clopidogrel Bisulfate (plaVIX 75MG) 75 mg DAILY PO 01/17/25 09:00 02/16/25 08:59 01/18/25 08:08 75 MG Dextrose (D50w) 50 ml AD PRN IV HYPOGLYCEMIA PROTOCOL 01/14/25 22:00 02/13/25 21:59 Famotidine (Pepcid 20mg Tab) 20 mg BID PO 01/14/25 22:30 02/13/25 22:29 01/18/25 08:07 20 MG Glipizide (GLUCOtrol XL 5MG TAB) 5 mg DAILY PO 01/17/25 09:00 01/17/25 06:09 DC Glucagon (Glucagon 1mg Kit) 1 mg AD PRN IM HYPOGLYCEMIA PROTOCOL 01/14/25 22:00 02/13/25 21:59 Heparin Sodium (Porcine) (HEParin 5,000 UNIT VIAL) 5,000 unit Q12H SQ 01/14/25 22:00 02/13/25 21:59 01/18/25 09:12 5,000 UNIT Insulin Human Regular (humuLIN R 100 UNIT/ML 3ML) INSULIN SLIDING SCAL... ACHS SQ 01/15/25 07:30 02/14/25 07:29 01/18/25 11:38 3 UNIT Magnesium Sulfate 50 ml @ 0 mls/hr PROTOCOL IV 01/15/25 12:00 02/14/25 11:59 01/17/25 05:02 25 MLS/HR Magnesium Sulfate 50 ml @ 0 mls/hr PROTOCOL PRN IV OTHER [SEE ORDER COMMENTS] 01/14/25 22:00 01/15/25 11:50 DC 01/15/25 05:45 25 MLS/HR Metformin HCl (glucoPHAGE) 500 mg BID PO 01/16/25 21:00 01/17/25 06:09 DC Ondansetron HCl (zoFRAN 4MG INJ) 4 mg Q6H PRN IV NAUSEA/VOMITING 01/14/25 22:00 02/13/25 21:59 Piperacillin Sod/ Tazobactam Sod 50 ml @ 12.5 mls/hr ZOSY8 IV 01/15/25 05:00 01/25/25 04:59 01/18/25 04:59 12.5 MLS/HR Potassium Chloride 100 ml @ 100 mls/hr AD PRN IV POTASSIUM PROTOCOL 01/14/25 22:00 02/13/25 21:59 Potassium Chloride (K-Dur/Klor-Con 20meq) 20 meq AD PRN PO POTASSIUM PROTOCOL 01/14/25 22:00 02/13/25 21:59 Potassium Chloride (KCl 10% Elixir 20meq/15ml) 20 meq AD PRN PO POTASSIUM PROTOCOL 01/14/25 22:00 02/13/25 21:59 Sodium Chloride 1,000 ml @ 100 mls/hr Q10H IV 01/14/25 22:00 02/13/25 21:59 01/18/25 04:59 100 MLS/HR Vancomycin HCl 250 ml @ 125 mls/hr ONCE IV 01/14/25 22:00 01/14/25 22:08 DC Vancomycin HCl 250 ml @ 125 mls/hr Q12H IV 01/15/25 08:00 01/16/25 06:17 DC 01/15/25 22:00 125 MLS/HR Vancomycin HCl 250 ml @ 125 mls/hr Q12H IV 01/16/25 10:00 01/26/25 09:59 01/18/25 10:15 125 MLS/HR Vancomycin HCl (Vancomycin Protocol) 1 each AD IV 01/14/25 19:00 01/16/25 14:07 DC DIAGNOSTICS / RADIOLOGY: [ ] ASSESSMENT: Sirs with organ dysfunction POA Suspected right 3rd toe osteomyelitis POA s/p 3rd toe amputation (01/17/25) Right foot pain POA Peripheral vascular disease POA Uncontrolled diabetes POA Chronic anemia POA Pseudohyponatremia POA PLAN: Continue the patient on broad-spectrum IV antibiotics Continue aspirin 81mg q24h Continue plavix 75mg q24h Continue amlodipine 5mg q24h Continue atorvastatin 40mg HS Continue Heparin 5000 BID Infectious disease consultation requested, noted and appreciated, continue broad-spectrum antibiotics Podiatry consultation requested, input noted and appreciated, the patient may require amputation. Pending amputation, will follow up post procedure Cardiology consulted, appreciate recommendations PT to evaluate Disposition: Pending post op course, improvement in clinical status JOSH RAMIREZ MD Jan 18, 2025 13:27
[2025-01-19] VITALS (8 sets, daily range): BP systolic 127–151; BP diastolic 68–80; PULSE 59–74; RESP 17–20; TEMP 98.7–99.1; O2SAT 98–100
[2025-01-19 04:08] LABS: BASOPHILS # (AUTO) 0.06 K/uL (0.00-0.20); BASOPHILS % (AUTO) 1.1 % (0.0-5.0); EOSINOPHILS # (AUTO) 0.16 K/uL (0.00-0.70); EOSINOPHILS % (AUTO) 2.8 % (0.0-8.0); HEMATOCRIT 35.2 % (42-54); IMMATURE GRANULOCYTE ABSOLUTE 0.02 K/uL (0-1); LYMPHOCYTES # (AUTO) 1.6 K/uL (1.0-4.8); LYMPHOCYTES % (AUTO) 27.7 % (21.0-51.0); MEAN CORPUSCULAR HEMOGLOBIN 30.3 pg (27.0-33.0); MEAN CORPUSCULAR HGB CONC 33.8 g/dL (32.0-36.0); MEAN CORPUSCULAR VOLUME 89.6 fL (79-99); MONOCYTES # (AUTO) 0.7 K/uL (0.1-1.0); MONOCYTES % (AUTO) 12.4 % (3.0-13.0); NEUTROPHILS # (AUTO) 3.2 K/uL (1.8-7.7); NEUTROPHILS % (AUTO) 55.6 % (40.0-77.0); PLATELET COUNT (AUTO) 283 K/uL (130-400); RED BLOOD CELL COUNT(AUTO) 3.93 MIL/uL (4.50-6.20); WHITE BLOOD COUNT (AUTO) 5.7 K/uL (4.8-10.8)
[2025-01-19 04:26] LABS: CREATININE 1.1 mg/dL (0.5-1.3); POTASSIUM 3.9 mmol/L (3.5-5.1)
--- NOTE | 2025-01-19 12:33 | PN ---
[facility] PROGRESS NOTE Date of Service: Jan 19, 2025 Time of Service: 12:24 SUBJECTIVE: This is a 54-year-old male Japanese-speaking, with past medical history of diabetes, hypertension, peripheral vascular disease status post right tibial artery with angioplasty and osteomyelitis of the right 4th toe with amputation who presented to the ED for complaints of right foot pain /swelling and right 3rd toe necrosis which started 1 week ago. Patient unable to determine how it started because he said he has neuropathy and he noticed a week ago it started hurting and the wound looks getting worse so he decided to come to be evaluated. Upon arrival to ER vital signs temperature 101.8, heart rate 104, blood pressure 154/85 saturation 98% on room air. In the ER Labs: Hemoglobin 12, hematocrit 35, platelet count 206. Sodium 132, chloride 94, glucose 230. Chest x-ray result revealed no acute pulmonary infiltrate is seen. Right Foot x-ray result revealed there is 3rd transmetatarsal amputation. Vascular calcifications are seen. Evaluation for osteomyelitis is limited with radiographs. There is no acute displaced fracture or dislocation. There is soft tissue swelling. Degenerative changes are seen. EKG result revealed sinus rhythm heart rate 94 with left ventricular hypertrophy inferior infarct old. While in the ER patient received Zosyn IV, vancomycin IV and received Tylenol 1000 mg p.o. and IV fluid resuscitation 30 mL/kilogram over 3 hours. Arterial ultrasound right lower extremity showing atherosclerotic disease, abnormal monophasic arterial waveform with the hyperemia seen in the right anterior tibial, posterior tibial, peroneal and dorsalis pedal arteries. Patient was for further medical management. Today patient is alert oriented x3, hemodynamically stable, getting good pain control with current medical management, getting IV antibiotics during my visit 01/16 patient is seen and examined at bedside, no acute events overnight, alert oriented x3, hemodynamically stable, getting IV antibiotics. Patient evaluated by manager express, and patient denied amputation of the stroke, next week. Arterial ultrasound showing atherosclerotic disease, abnormal monophasic arterial waveforms with hyperemia in the right anterior tibial, posterior tibial, peroneal and dorsalis pedal arteries. We will request Cardiology consultation. We will continue with aspirin 81 mg p.o. daily. Continue heparin 5000 units subcutaneously q.12 hours. We will order MRI of the right foot. 01/17 patient seen at bedside, no acute events overnight. Pending amputation today with Podiatry, will follow up postprocedure. 01/18 patient seen at bedside, no acute events overnight. He is s/p amputation, pain is controlled. Wound care per podiatry. PT consulted for evaluation and discharge recommendations. ID to provide discharge antibiotic recommendations. Labs are relatively unremarkable 01/19 pt seen at bedside, no acute events overnight. Cardiology pending vascular workup, will follow up. ID to provide discharge recommendations for antibi otics. REVIEW OF SYSTEMS 12 point review of systems negative unless noted in HPI PHYSICAL EXAM GENERAL APPEARANCE: The patient is awake, alert, and oriented, in no acute cardiopulmonary distress. NEUROLOGICAL: Cranial nerves II-XII grossly intact. Motor is 5/5 in bilateral upper and lower extremities proximal to distal. No sensory deficits. HEENT: Face is symmetric. Pupils are equal and reactive. Extraocular movements are intact. NECK: Supple. No JVD. No thyromegaly. No submental, submandibular, pre- /postauricular, occipital or supraclavicular lymphadenopathy. CHEST: Normal chest expansion. No Telemetry. LUNGS: Absence of any rales, rhonchi or any wheezing. CARDIOVASCULAR: Regular. S1 and S2 normal. No appreciable rubs, murmurs or gallops. ABDOMEN: Soft, nontender, and nondistended. There is no rebound, voluntary guarding, or rigidity. : Deferred. No Shirley. EXTREMITIES: Non-edematous and not cyanotic. No clubbing. Good capillary refill. SKIN: Right 3rd toe necrotic wound Vital Signs (last 8hr) Date Time Temp Pulse Resp B/P (MAP) Pulse Ox O2 Delivery O2 Flow Rate FiO2 01/19/25 11:55 99.1 59 17 151/79 99 Room Air 01/19/25 08:00 98 Room Air* 0 21 01/19/25 07:52 99.0 74 17 127/80 98 Room Air LABS: Laboratory: Test 01/19/25 11:19 01/19/25 04:00 01/18/25 09:13 01/18/25 03:59 Range/Units Whole Blood Glucose 266 H 70-110 MG/DL White Blood Count 5.7 4.8-10.8 K/uL Red Blood Count 3.93 L 4.50-6.20 MIL/uL Hemoglobin 11.9 L 14.0-18.0 g/dL Hematocrit 35.2 L 42-54 % Mean Corpuscular Volume 89.6 79-99 fL Mean Corpuscular Hemoglobin 30.3 27.0-33.0 pg Mean Corpuscular Hemoglobin Concent 33.8 32.0-36.0 g/dL Red Cell Distribution Width 13.0 11.0-15.5 % Platelet Count 283 130-400 K/uL Mean Platelet Volume 9.4 7.5-10.5 fL Immature Granulocyte % (Auto) 0.4 0-1 % Neutrophils (%) (Auto) 55.6 40.0-77.0 % Lymphocytes (%) (Auto) 27.7 21.0-51.0 % Monocytes (%) (Auto) 12.4 3.0-13.0 % Eosinophils (%) (Auto) 2.8 0.0-8.0 % Basophils (%) (Auto) 1.1 0.0-5.0 % Neutrophils # (Auto) 3.2 1.8-7.7 K/uL Lymphocytes # (Auto) 1.6 1.0-4.8 K/uL Monocytes # (Auto) 0.7 0.1-1.0 K/uL Eosinophils # (Auto) 0.16 0.00-0.70 K/uL Basophils # (Auto) 0.06 0.00-0.20 K/uL Absolute Immature Granulocyte (auto 0.02 0-1 K/uL Nucleated Red Blood Cells 0.0 0.0-0.19 % Sodium Level 136 136-145 mmol/L Potassium Level 3.9 3.5-5.1 mmol/L Chloride Level 102 101-111 mmol/L Carbon Dioxide Level 26 21-32 mmol/L Blood Urea Nitrogen 9 7-18 mg/dL Creatinine 1.1 0.5-1.3 mg/dL Glomerular Filtration Rate Calc 80 >90 mL/min Random Glucose 216 H 70-105 mg/dL Total Calcium 8.6 8.5-10.1 mg/dL Vancomycin Level Trough 18.9 10.0-20.0 UG/ML Phosphorus Level 3.4 2.5-4.9 mg/dL Magnesium Level 2.00 1.80-2.40 mg/dL Test 01/17/25 15:26 Range/Units Bedside Glucose Comment Notified Nurse Current Medications Medications (Trade) Dose Ordered Sig/Apoorva Route PRN Reason Start Time Stop Time Status Last Admin Dose Admin Acetaminophen (TYLenol 325MG TAB) 650 mg Q4H PRN PO MILD PAIN (1-3) 01/14/25 22:00 02/13/25 21:59 Acetaminophen (TYLenol 325MG TAB) 650 mg Q6H PRN PO TEMPERATURE GREATER THAN 101.5 01/14/25 22:00 02/13/25 21:59 Acetaminophen/ Hydrocodone Bitart (NORco 5/325MG) 1 tab Q4H PRN PO MODERATE PAIN (4-6) 01/14/25 22:00 01/19/25 21:59 01/15/25 22:54 1 TAB Acetaminophen/ Hydrocodone Bitart (NORco 5/325MG) 2 tab Q4H PRN PO SEVERE PAIN (7-10) 01/14/25 22:00 01/19/25 21:59 01/17/25 23:33 2 TAB Amlodipine Besylate (NorvASC 5MG TAB) 5 mg DAILY PO 01/16/25 09:00 02/15/25 08:59 01/19/25 09:17 5 MG Aspirin (Aspirin 81mg Chew Tab) 81 mg DAILY PO 01/16/25 09:00 02/15/25 08:59 01/19/25 09:17 81 MG Atorvastatin Calcium (LIPItor 40MG) 40 mg HS PO 01/15/25 21:00 02/14/25 20:59 01/18/25 19:58 40 MG Clopidogrel Bisulfate (plaVIX 75MG) 75 mg DAILY PO 01/17/25 09:00 02/16/25 08:59 01/19/25 09:16 75 MG Dextrose (D50w) 50 ml AD PRN IV HYPOGLYCEMIA PROTOCOL 01/14/25 22:00 02/13/25 21:59 Famotidine (Pepcid 20mg Tab) 20 mg BID PO 01/14/25 22:30 02/13/25 22:29 01/19/25 09:17 20 MG Glipizide (GLUCOtrol XL 5MG TAB) 5 mg DAILY PO 01/17/25 09:00 01/17/25 06:09 DC Glucagon (Glucagon 1mg Kit) 1 mg AD PRN IM HYPOGLYCEMIA PROTOCOL 01/14/25 22:00 02/13/25 21:59 Heparin Sodium (Porcine) (HEParin 5,000 UNIT VIAL) 5,000 unit Q12H SQ 01/14/25 22:00 02/13/25 21:59 01/19/25 09:14 5,000 UNIT Insulin Human Regular (humuLIN R 100 UNIT/ML 3ML) INSULIN SLIDING SCAL... ACHS SQ 01/15/25 07:30 02/14/25 07:29 01/19/25 11:53 5 UNIT Magnesium Sulfate 50 ml @ 0 mls/hr PROTOCOL IV 01/15/25 12:00 02/14/25 11:59 01/17/25 05:02 25 MLS/HR Magnesium Sulfate 50 ml @ 0 mls/hr PROTOCOL PRN IV OTHER [SEE ORDER COMMENTS] 01/14/25 22:00 01/15/25 11:50 DC 01/15/25 05:45 25 MLS/HR Metformin HCl (glucoPHAGE) 500 mg BID PO 01/16/25 21:00 01/17/25 06:09 DC Ondansetron HCl (zoFRAN 4MG INJ) 4 mg Q6H PRN IV NAUSEA/VOMITING 01/14/25 22:00 02/13/25 21:59 Piperacillin Sod/ Tazobactam Sod 50 ml @ 12.5 mls/hr ZOSY8 IV 01/15/25 05:00 01/25/25 04:59 01/19/25 04:41 12.5 MLS/HR Potassium Chloride 100 ml @ 100 mls/hr AD PRN IV POTASSIUM PROTOCOL 01/14/25 22:00 02/13/25 21:59 Potassium Chloride (K-Dur/Klor-Con 20meq) 20 meq AD PRN PO POTASSIUM PROTOCOL 01/14/25 22:00 02/13/25 21:59 Potassium Chloride (KCl 10% Elixir 20meq/15ml) 20 meq AD PRN PO POTASSIUM PROTOCOL 01/14/25 22:00 02/13/25 21:59 Sodium Chloride 1,000 ml @ 100 mls/hr Q10H IV 01/14/25 22:00 02/13/25 21:59 01/18/25 16:33 100 MLS/HR Vancomycin HCl 250 ml @ 125 mls/hr ONCE IV 01/14/25 22:00 01/14/25 22:08 DC Vancomycin HCl 250 ml @ 125 mls/hr Q12H IV 01/15/25 08:00 01/16/25 06:17 DC 01/15/25 22:00 125 MLS/HR Vancomycin HCl 250 ml @ 125 mls/hr Q12H IV 01/16/25 10:00 01/26/25 09:59 01/19/25 09:18 125 MLS/HR Vancomycin HCl (Vancomycin Protocol) 1 each AD IV 01/14/25 19:00 01/16/25 14:07 DC DIAGNOSTICS / RADIOLOGY: [ ] ASSESSMENT: Sirs with organ dysfunction POA Suspected right 3rd toe osteomyelitis POA s/p 3rd toe amputation (01/17/25) Right foot pain POA Peripheral vascular disease POA Uncontrolled diabetes POA Chronic anemia POA Pseudohyponatremia POA PLAN: Continue the patient on broad-spectrum IV antibiotics Continue aspirin 81mg q24h Continue plavix 75mg q24h Continue amlodipine 5mg q24h Continue atorvastatin 40mg HS Continue Heparin 5000 BID Infectious disease consultation requested, noted and appreciated, continue broad-spectrum antibiotics Podiatry consultation requested, input noted and appreciated, the patient may require amputation. Pending amputation, will follow up post procedure Cardiology consulted, appreciate recommendations PT to evaluate Disposition: Cardiology pending vascular workup, ID recommendations for discharge antibiotics JOSH RAMIREZ MD Jan 19, 2025 12:33
--- NOTE | 2025-01-19 14:00 | NUR ---
WOUND CARE Wound dressing changed as ordered.
--- NOTE | 2025-01-19 14:29 | PN ---
Cardiology Progress Note Date of Service: 01/19/2025 Attending Trolley Car Overhauler: Dr. Thor Morales Reason For Consult: PAD Problem List: -Osteomyelitis and cellulitis (polymicrobial infection) affecting the 3rd digit of the right foot s/p amputation of the 3rd digit of the right foot done on 01/17/2025 -PAD, Norton category 5 symptoms (RLE) -PAD s/p amputation of the 4th digit of the right foot done on 03/31/2024 s/p successful treatment with balloon lithotripsy and balloon angioplasty of the distal right anterior tibial artery done on 04/02/[address] Morales -Residual 80% stenosis in the distal right posterior tibial artery -HTN -HLP -Poorly controlled DM2 -Noncompliance with outpatient follow up Subjective: This is a 54y/o male who was seen and evaluated at the bedside today. The patient denies any active complaints including chest pain, chest pressure, palpitations, shortness of breath, or lower extremity pain. As per the nurse, there were no overnight events. Vitals/Labs Vital Signs Date Time Temp Pulse Resp B/P (MAP) Pulse Ox O2 Delivery O2 Flow Rate FiO2 01/19/25 11:55 99.1 59 17 151/79 99 Room Air 01/19/25 08:00 0 21 General: Awake and alert x 3. No acute distress. HEENT: Normocephalic, atraumatic. EOMI. Oral mucosa was moist. Neck: No masses, JVD, or carotid bruits noted. Lungs: No respiratory distress. Symmetric chest movement. Bilaterally clear to auscultation. No wheezing, rales, or rhonchi. Cardiac: Regular rate. Normal S1 and S2, +S4. No other murmurs, rubs, or gallops noted. Abdomen: Soft, nontender, nondistended. No organomegaly. Normal active bowel sounds x 4 quadrants. Extremities: No edema, clubbing, or cyanosis. The right foot is wrapped in a bulky dressing, so we are unable to assess distal pulses. Neuro: Cranial nerves II-XII are grossly intact. No focal deficits identified. Laboratory Tests 01/19/25 04:00 Assessment: -Osteomyelitis and cellulitis (polymicrobial infection) affecting the 3rd digit of the right foot s/p amputation of the 3rd digit of the right foot done on 01/17/2025 -PAD, Osiris category 5 symptoms (RLE) -PAD s/p amputation of the 4th digit of the right foot done on 03/31/2024 s/p successful treatment with balloon lithotripsy and balloon angioplasty of the distal right anterior tibial artery done on 04/02/[address] Morales -Residual 80% stenosis in the distal right posterior tibial artery -HTN -HLP -Poorly controlled DM2 -Noncompliance with outpatient follow up Plan: 1. PAD, Norton category 5 symptoms (RLE) -Stable -In order to improved peripheral blood flow and improve the patient's chance of wound healing, we recommend he undergo a right lower extremity peripheral angiogram with possible intervention. The risks and benefits of the procedure have been explained to the patient and he is in agreement. -We will schedule the procedure for tomorrow morning, to be done by Dr. Thor Morales. Access: Left MANAGER ORGANIZATIONAL. -In the meantime, he will continue on conservative GDMT which includes aspirin 81 mg daily, clopidogrel 75 mg daily, and atorvastatin 40 mg QHS. -In addition, he should continue with aggressive wound care and IV antibiotic therapy. This case was discussed with my Supervising Physician, Dr. Thor Morales, and the above mentioned plan was formulated and agreed upon. -Progress note written by Jose Aguayo, MSN, INFORMATION MANAGEMENT MANAGER, AGACNP-JOSE BERGER NP Jan 19, 2025 14:29
--- NOTE | 2025-01-19 17:22 | PN ---
INFECTIOUS DISEASE PROGRESS NOTE Date of Service: Jan 19, 2025 SUBJECTIVE: This is a 54-year-old male patient who was seen and examined at bedside room 301. Patient is awake, alert and oriented x3. Patient is status post amputation of the right 3rd toe due to gangrene and osteomyelitis on 01/17/2025. Patient with polymicrobial infection to the right foot. Continues on vancomycin and Zosyn IV. No fever, temperature 98.8 and a WBC of 5.7. Will continue to follow patient's care. PHYSICAL EXAM EYES: Anicteric. Pupils equal and reactive. HENT: No oral thrush seen, moist Oral mucosa. NECK: Supple, no JVD or thyromegaly. LUNGS: Good air entry. No rales, no rhonchi. CARDIOVASCULAR: S1, S2 regular. No murmur heard. ABDOMEN: Soft, non tender, bowel sounds present, no organomegaly. CENTRAL NERVOUS SYSTEM: Awake, alert, oriented x 3. SKIN: No rashes, no swelling. LYMPHATICS: No peripheral lymphadenopathy. MUSCULOSKELETAL: No joint swelling, erythema or tenderness. EXTREMITIES: No cyanosis or clubbing. Right 3rd toe gangrene and osteomyelitis, s/p amputation. BACK: No deformity, no pressure ulcer. GENITOURINARY: No dysuria or hematuria. Vital Sign (Last 12 Hours) 01/19/25 01/19/25 01/19/25 01/19/25 07:52 08:00 11:55 15:54 Temp 99.0 99.1 98.8 Pulse 74 59 72 Resp 17 17 18 B/P (MAP) 127/80 151/79 130/77 Pulse Ox 98 98 99 99 O2 Delivery Room Air Room Air* Room Air Room Air O2 Flow Rate 0 FiO2 21 Intake & Output (last 24hrs) 01/18/25 01/18/25 01/19/25 15:00 23:00 07:00 Intake Total 1500.0 ml 600.0 ml Output Total 900 ml Balance 1500.0 ml -300.0 ml LABS: Laboratory: Test 01/19/25 15:39 01/19/25 04:00 01/18/25 09:13 01/18/25 03:59 Range/Units Whole Blood Glucose 157 H 70-110 MG/DL White Blood Count 5.7 4.8-10.8 K/uL Red Blood Count 3.93 L 4.50-6.20 MIL/uL Hemoglobin 11.9 L 14.0-18.0 g/dL Hematocrit 35.2 L 42-54 % Mean Corpuscular Volume 89.6 79-99 fL Mean Corpuscular Hemoglobin 30.3 27.0-33.0 pg Mean Corpuscular Hemoglobin Concent 33.8 32.0-36.0 g/dL Red Cell Distribution Width 13.0 11.0-15.5 % Platelet Count 283 130-400 K/uL Mean Platelet Volume 9.4 7.5-10.5 fL Immature Granulocyte % (Auto) 0.4 0-1 % Neutrophils (%) (Auto) 55.6 40.0-77.0 % Lymphocytes (%) (Auto) 27.7 21.0-51.0 % Monocytes (%) (Auto) 12.4 3.0-13.0 % Eosinophils (%) (Auto) 2.8 0.0-8.0 % Basophils (%) (Auto) 1.1 0.0-5.0 % Neutrophils # (Auto) 3.2 1.8-7.7 K/uL Lymphocytes # (Auto) 1.6 1.0-4.8 K/uL Monocytes # (Auto) 0.7 0.1-1.0 K/uL Eosinophils # (Auto) 0.16 0.00-0.70 K/uL Basophils # (Auto) 0.06 0.00-0.20 K/uL Absolute Immature Granulocyte (auto 0.02 0-1 K/uL Nucleated Red Blood Cells 0.0 0.0-0.19 % Sodium Level 136 136-145 mmol/L Potassium Level 3.9 3.5-5.1 mmol/L Chloride Level 102 101-111 mmol/L Carbon Dioxide Level 26 21-32 mmol/L Blood Urea Nitrogen 9 7-18 mg/dL Creatinine 1.1 0.5-1.3 mg/dL Glomerular Filtration Rate Calc 80 >90 mL/min Random Glucose 216 H 70-105 mg/dL Total Calcium 8.6 8.5-10.1 mg/dL Vancomycin Level Trough 18.9 10.0-20.0 UG/ML Phosphorus Level 3.4 2.5-4.9 mg/dL Magnesium Level 2.00 1.80-2.40 mg/dL DIAGNOSTICS / RADIOLOGY: PATIENT: FORD NIEVES ACCT: [id number] LOC: [facility] U: [id number] AGE/SX: 54/M ROOM: 301 RE01/14/[address]: ONOFRE CARABALLO MD : 1970 BED: 1 DIS: STATUS: ADM IN TLOC: SPEC: [id number] RAZ: 01/15/25 STATUS: COMP REQ: [id number] RECD: 01/15/[address]: SERGIO THOMASON MD SOURCE: TOE ENTR: 01/15/[address]: ONOFRE CARABALLO MD SPDESC: RT THIRD SELF,REFERRAL CHANDRAKANT REVELES DPM ORDERED: AEROBIC CULTURE Procedure Result Keyshawn Date-Time AEROBIC CULTURE Final 01/17/25-0943 [facility] DESCRIPTION: REPORT 1: 2+ GRAM POSITIVE COCCI IN CHAINS IDENTIFICATION TO FOLLOW BETA HEMOLTYIC STREPTOCOCCUS GROUP B 2+ GRAM POSITIVE COCCI IN CLUSTERS STAPHYLOCOCCUS AUREUS SENSITIVITY TO FOLLOW 1+ GRAM NEGATIVE RODS IDENTIFICATION AND SENSITIVITY TO FOLLOW REPORT 2: NO FURTHER WORK-UP DONE COMMENT: BETA STREPTOCOCCUS REMAIN SUSCEPTIBLE TO PENICILLIN COMMENT: NO FURTHER WORK-UP CITROBACTER BRAAKII ENTEROBACTER CLOACAE STAPHYLOCOCCUS AUREUS STREP AGALACTIAE GROUP B CITROBACTE ENT CLOAC M.I.C. RX M.I.C. RX --------- ---- --------- ---- AZTREONAM <=4 S <=4 S CEFTAZIDIME <=1 S <=1 S CEFTAZIDIME/AVIBACTAM <=8 S <=8 S ERYTHROMYCIN GENTAMICIN <=2 S <=2 S LEVOFLOXACIN <=0.5 S <=0.5 S VANCOMYCIN OXACILLIN AIMEE RIFAMPIN MEROPENEM <=1 S <=1 S PENICILLIN PIPERACILLIN/TAZOBACTAM <=8 S <=8 S TRIMETHOPRIM/SUFLAMETHOXAZOLE <=2/38 S <=2/38 S ASSESSMENT: Right 3rd toe gangrene and osteomyelitis, status post amputation on 01/17/2025. Right foot with polymicrobial infection. Infection with methicillin sensitive Staphylococcus aureus. Left foot cellulitis. Peripheral vascular disease. Diabetes mellitus. PLAN: Continue vancomycin per pharmacy protocol. Continue Zosyn IV. Continue pain management. Continue wound care. Continue GI prophylaxis. Continue antiplatelets. This case was reviewed and discussed with my supervising physician and the above assessment and plan was formulated and agreed upon. ATTESTATION BY PHYSICIAN I have seen and examined the patient. I reviewed the documentation, medical decision making, and treatment plan as noted by the mid-level provider above. I agree with the findings and plan of care. SERGIO THOMASON MD, MIRTA L RAILROAD CAR REPAIRMAN Jan 19, 2025 17:22
--- NOTE | 2025-01-19 18:25 | NUR ---
PHYSICIAN ROUNDING Dr. Pereira at bedside to assess wound. New order received for treatment of amputation site.
--- NOTE | 2025-01-19 22:02 | PN ---
PROGRESS NOTE Date of Service: Jan 19, 2025 Time of Service: 21:52 SUBJECTIVE: Patient seen for follow up s/p amputation 3rd toe right sutures in place stable healing well post op day 2 REVIEW OF SYSTEMS CONSTITUTIONAL: Denies fever, chills, or fatigue. HEAD/FACE: No signs of trauma. EENT: Denies eye pain, blurred vision, double vision, or light sensitivity. RESPIRATORY: Denies shortness of breath, cough, wheezing CARDIOVASCULAR: Denies chest pain, palpitation, syncope GASTROINTESTINAL/ABDOMINAL: Denies abdominal pain, constipation, diarrhea, nausea or vomiting GENITOURINARY: Denies dysuria or hematuria. MUSCULOSKELETAL: Denies joint pain, tenderness, or trauma. INTEGUMENTARY: wound 3rd toe s/p amputation suturres in place. NEUROLOGICAL/PSYCH: Denies anxiety, depression, heat or cold intolerance. PHYSICAL EXAM EYES: Anicteric. Pupils equal and reactive. HENT: No oral thrush seen, moist Oral mucosa NECK: Supple, no JVD or thyromegaly. LUNGS: Good air entry. No rales, no rhonchi. CARDIOVASCULAR: S1, S2 regular. No murmur heard. ABDOMEN: Soft, non tender, bowel sounds present, no organomegaly CENTRAL NERVOUS SYSTEM: Awake, alert, oriented x 3. No focal deficits. SKIN: No rashes, no swelling. LYMPHATICS: No peripheral lymphadenopathy MUSCULOSKELETAL: No joint swelling, erythema or tenderness. EXTREMITIES: Wound s/p amputation 3rd toe right foot BACK: No deformity, no pressure ulcer. GENITOURINARY: No dysuria or hematuria Vital Signs (last 8hr) Date Time Temp Pulse Resp B/P (MAP) Pulse Ox O2 Delivery O2 Flow Rate FiO2 01/19/25 20:00 98.8 63 19 134/68 100 Room Air 01/19/25 15:54 98.8 72 18 130/77 99 Room Air LABS: Laboratory: Test 01/19/25 19:24 01/19/25 04:00 01/18/25 09:13 01/18/25 03:59 Range/Units Whole Blood Glucose 261 #H 70-110 MG/DL White Blood Count 5.7 4.8-10.8 K/uL Red Blood Count 3.93 L 4.50-6.20 MIL/uL Hemoglobin 11.9 L 14.0-18.0 g/dL Hematocrit 35.2 L 42-54 % Mean Corpuscular Volume 89.6 79-99 fL Mean Corpuscular Hemoglobin 30.3 27.0-33.0 pg Mean Corpuscular Hemoglobin Concent 33.8 32.0-36.0 g/dL Red Cell Distribution Width 13.0 11.0-15.5 % Platelet Count 283 130-400 K/uL Mean Platelet Volume 9.4 7.5-10.5 fL Immature Granulocyte % (Auto) 0.4 0-1 % Neutrophils (%) (Auto) 55.6 40.0-77.0 % Lymphocytes (%) (Auto) 27.7 21.0-51.0 % Monocytes (%) (Auto) 12.4 3.0-13.0 % Eosinophils (%) (Auto) 2.8 0.0-8.0 % Basophils (%) (Auto) 1.1 0.0-5.0 % Neutrophils # (Auto) 3.2 1.8-7.7 K/uL Lymphocytes # (Auto) 1.6 1.0-4.8 K/uL Monocytes # (Auto) 0.7 0.1-1.0 K/uL Eosinophils # (Auto) 0.16 0.00-0.70 K/uL Basophils # (Auto) 0.06 0.00-0.20 K/uL Absolute Immature Granulocyte (auto 0.02 0-1 K/uL Nucleated Red Blood Cells 0.0 0.0-0.19 % Sodium Level 136 136-145 mmol/L Potassium Level 3.9 3.5-5.1 mmol/L Chloride Level 102 101-111 mmol/L Carbon Dioxide Level 26 21-32 mmol/L Blood Urea Nitrogen 9 7-18 mg/dL Creatinine 1.1 0.5-1.3 mg/dL Glomerular Filtration Rate Calc 80 >90 mL/min Random Glucose 216 H 70-105 mg/dL Total Calcium 8.6 8.5-10.1 mg/dL Vancomycin Level Trough 18.9 10.0-20.0 UG/ML Phosphorus Level 3.4 2.5-4.9 mg/dL Magnesium Level 2.00 1.80-2.40 mg/dL DIAGNOSTICS / RADIOLOGY: [ ] ASSESSMENT: Gangrene 3rd toe right foot PLAN: Continue local wound care IV antibiotics Cardiovascular follow up. Partial weight bearing with crutches or walker CHANDRAKANT REVELES DPM Jan 19, 2025 22:02
[2025-01-20] VITALS (17 sets, daily range): BP systolic 110–163; BP diastolic 59–115; PULSE 56–84; RESP 16–19; TEMP 97.6–99.4; O2SAT 98–99
[2025-01-20 04:52] LABS: BASOPHILS # (AUTO) 0.07 K/uL (0.00-0.20); BASOPHILS % (AUTO) 1.3 % (0.0-5.0); EOSINOPHILS # (AUTO) 0.19 K/uL (0.00-0.70); EOSINOPHILS % (AUTO) 3.5 % (0.0-8.0); HEMATOCRIT 36.9 % (42-54); IMMATURE GRANULOCYTE ABSOLUTE 0.03 K/uL (0-1); LYMPHOCYTES # (AUTO) 1.8 K/uL (1.0-4.8); LYMPHOCYTES % (AUTO) 33.6 % (21.0-51.0); MEAN CORPUSCULAR HEMOGLOBIN 29.9 pg (27.0-33.0); MEAN CORPUSCULAR HGB CONC 33.6 g/dL (32.0-36.0); MEAN CORPUSCULAR VOLUME 88.9 fL (79-99); MONOCYTES # (AUTO) 0.8 K/uL (0.1-1.0); MONOCYTES % (AUTO) 14.9 % (3.0-13.0); NEUTROPHILS # (AUTO) 2.5 K/uL (1.8-7.7); NEUTROPHILS % (AUTO) 46.1 % (40.0-77.0); PLATELET COUNT (AUTO) 354 K/uL (130-400); RED BLOOD CELL COUNT(AUTO) 4.15 MIL/uL (4.50-6.20); RED CELL DISTRIBUTION WIDTH 13.2 % (11.0-15.5); WHITE BLOOD COUNT (AUTO) 5.4 K/uL (4.8-10.8)
[2025-01-20 05:02] LABS: POTASSIUM 3.5 mmol/L (3.5-5.1)
[2025-01-20 05:15] LABS: INR 0.98 (0.85-1.15); PROTHROMBIN TIME 10.4 SEC (9.6-11.6)
[2025-01-20 05:17] LABS: PARTIAL THROMBOPLASTIN TIME 26.7 SEC (26.3-35.5)
--- NOTE | 2025-01-20 06:52 | EKG ---
[facility] Test Date: 2025-01-20 Test Time: 02:47:03 Pat Name: FORD NIEVES Department: [facility] Room: 301 1 Gender: M Turner Machine: [id number] : 1970 Requested By: JOSH RAMIREZ Order Number: [id number] Reading MD: Thor Olivas Measurements Intervals [place] Rate: 61 P: 36 LA: 170 QRS: 2 QRSD: 84 T: 49 QT: 458 QTc: 461 Interpretive Statements Normal sinus rhythm Moderate voltage criteria for LVH, may be normal variant Inferior infarct , age undetermined Compared to ECG 01/14/2025 18:51:56 No significant changes Electronically Signed On 01-22-2025 19:49:27 CDT by Thor Olivas Please click the below link to view image of tracing.
--- NOTE | 2025-01-20 09:34 | NUR ---
VANCOMYCIN NOT ADMINISTERED Patient to be taken down for scheduled procedure: peripheral angiogram
[2025-01-20] MEDS ORDERED: IODIXANOL 320 MG/ML 100 ML VIAL ONE (09:57)
[2025-01-20] MEDS ORDERED: LIDOCAINE HCL 400MG/20ML VIAL ONE (09:57)
[2025-01-20] MEDS ORDERED: HEParin 10,000 UNIT/10ML (1,000 UNIT/ML) VIAL ONE (09:58)
[2025-01-20] MEDS ORDERED: HEParin-NS 1,000 UNIT/500 ML 1,000 ML IV ONE ×2 (09:58→10:58)
[2025-01-20] MEDS ORDERED: NITROGLYCERIN 50MG VIAL ONE (09:58)
[2025-01-20] MEDS ORDERED: niCARDIpine 25MG INJ IV ONE (09:58)
[2025-01-20] MEDS ORDERED: FENTanyl CITRate PF 50 MCG/1 ML 2ML VIAL ONE ×2 (10:21→12:19)
[2025-01-20] MEDS ORDERED: MIDAZOLAM HCL 1 MG/ML 2ML VIAL ONE ×2 (10:21→11:44)
[2025-01-20] MEDS ORDERED: cloPIDOgrel 300MG TAB ONE (10:46)
[2025-01-20] MEDS ORDERED: ASPIRIN 325MG EC TAB PO ONE (10:46)
[2025-01-20] MEDS: levoFLOXacin 750 MG TABLET PO SCH (12:00)
[2025-01-20] MEDS ORDERED: HEParin-NS 1,000 UNIT/500 ML 500 ML IV ONE (12:08)
[2025-01-20] MEDS ORDERED: DEXTROSE 50%-WATER 50 ML DISP.SYRIN IV PRN (13:00)
[2025-01-20] MEDS ORDERED: GLUCAGON 1MG KIT 1 MG ML IM PRN (13:00)
--- NOTE | 2025-01-20 13:19 | PRN ---
Procedure:Peripheral Angiogram Procedure Note Procedure Note: Peripheral Angiogram Date/Time of Service: 01/20/2025 Referring Physician: Dr. Spivey Procedures Performed: Lower abdominal aortogram, peripheral angiogram with lower extremity arterial runoff, balloon lithotripsy (shockwave Javelin and Shockwave 3.0 x 80mm) and balloon angioplasty of the distal right anterior tibial artery and proximal right dorsalis pedis artery, balloon angioplasty and balloon lithotripsy of the ostial right anterior tibial artery and balloon angioplasty and balloon lithotripsy (shockwave) of the distal right posterior tibial artery Indications for Procedure: PAD, Osiris category five symptoms (right foot) Osteomyelitis in the 3rd digit of the right foot status post amputation DM II Description of Procedure: [After informed consent was obtained the patient was prepped and draped in the usual sterile fashion a 6 [place]i arterial sheath with a hemostatic valve was inserted into the left common femoral artery using a modified Salinger technique on the first pass front wall puncture. A 5 [place]i Omni Flush catheter was then advanced over a soft angled Glidewire into the abdominal aorta and a lower abdominal aortogram with runoff was obtained. The findings are listed below. The Omni flush catheter was then advanced in the right common femoral artery in the right lower extremity arteriogram was obtained. The findings are listed below.] Findings: Lower abdominal aorta: patent Right common iliac artery: patent Right external iliac artery: patent Right internal iliac artery: patent Right common femoral artery: patent Right profunda artery: patent Right superficial femoral artery: patent Right popliteal artery: patent Right anterior tibial artery: 80% stenosis in the ostial segment of the artery and 100% stenosis (IDENTIFICATION OFFICER = 80mm) in the distal segment of the artery Right dorsalis pedis artery: 100% stenosis Right tibioperoneal artery: patent Right peroneal artery: patent Right posterior tibial artery: 95% stenosis in the distal segment of the artery Right pedal arch: Incomplete, with slow single-vessel runoff supplying the inferior and anterior segments of the pedal arch Left common iliac artery: patent Left external iliac artery: patent Left internal iliac artery: patent Left common femoral artery: patent Left profunda artery: patent Intervention: After reviewing the above-mentioned findings the decision was made to intervene on the right anterior tibial artery and right dorsalis pedis artery. The soft angled Glidewire was inserted into the Omni flush catheter was advanced to the mid right superficial femoral artery. The Omni flush catheter was then removed and the short six O[place]i arterial sheath was exchanged for a 65 cm six [place]i destination arterial sheath, which was then placed in the mid right superficial femoral artery. We then administered heparin 75 units/kg, clopidogrel 600 mg x 1 dose, and aspirin 325 mg x 1 dose. We then advanced a 0.014 whisper guidewire and 0.014 quick cross catheter across the areas stenosis and into the distal right anterior tibial artery. We then proceeded with a wire escalation technique that included a 0.014 Fielder XT and a 0.014 Confianza pro 12. We were able to cross the IDENTIFICATION OFFICER in the distal right anterior tibial artery and right dorsalis pedis artery using the 0.014 Confianza pro 12 guidewire. We then advanced the quick cross catheter to the distal right dorsalis pedis artery removed the guidewire and injected contrast into the catheter to ensure that we were in the true lumen of the right dorsalis pedis artery. The once this was complete, we advanced the 0.014 whisper guidewire into the quick cross catheter and into the distal right dorsalis pedis artery. We then performed balloon lithotripsy (shockwave javelin) in the distal right anterior tibial artery and right dorsalis pedis artery. We then performed balloon angioplasty (2.0 x 40 mm) and balloon lithotripsy (Shockwave 3.0 x 80 mm) in the ostial right anterior tibial artery, distal right anterior tibial artery, and right dorsalis pedis artery. We then repeated angiography which revealed widely patent right ant erior tibial artery and dorsalis pedis artery, without dissection, perforation, and brisk blood flow into the anterior segment of the right pedal arch. We then removed the whisper guidewire and advanced a 0.014 confianza pro 12 and 0.014 quick cross catheter across the areas stenosis in the distal right posterior tibial artery and into the proximal lateral calcaneal artery. We then exchanged the confianza pro 12 guidewire for a 0.014 run-through guidewire which was placed in the proximal lateral calcaneal artery. We then performed balloon lithotripsy (2.0 x 20 mm) and balloon lithotripsy (shockwave 3.0 x 80 mm) in the distal right posterior tibial artery. The balloons were then removed and repeat angiography was performed, which revealed widely patent arteries, without dissection, perforation, and brisk two-vessel runoff supplying the anterior and posterior segments of the right pedal arch. The guidewire and 65 cm six O[place]i destination arterial sheath were then removed and the arteriotomy site in the le ft common femoral artery was successfully closed using a six [place]i Angio-Seal device. The patient tolerated the procedure well without issue. Estimated Blood Loss: [40]mL Complications: [ None] Conclusion: 1. PAD, Osiris category five symptoms (right foot), 80% stenosis in the ostial right anterior tibial artery status post successful treatment with balloon angioplasty and balloon lithotripsy (shockwave 3.0 x 80mm), 100% stenosis in the distal right anterior tibial artery and right dorsalis pedis artery status post successful treatment with balloon lithotripsy (shockwave javelin), balloon angioplasty, and balloon lithotripsy (shockwave 3.0 x 80 mm), 95% stenosis in the distal right posterior tibial artery status post successful treatment with balloon angioplasty and balloon lithotripsy (shockwave 3.0 x 80 mm), resulting in widely patent arteries, without dissection, perforation, and brisk two-vessel runoff supplying the anterior and posterior segments of the right pedal arch. 2. Osteomyelitis in the 3rd digit of the right foot status post amputation 3. DM II Recommendations/Instructions: 1. Continue goal-directed medical therapy. 2. Continue aspirin 81 mg daily and clopidogrel 75 mg daily x 6 months 3. Groin precautions 4. 4 hours of bedrest 5. Start NS at 100ml/hr x 3 hours 6. We will order TCOMs of the right foot to assess wound healing potential after undergoing the above-mentioned peripheral intervention 7. Continue with the aggressive wound care KARUNA ESPINOZA MD Jan 20, 2025 13:19
--- NOTE | 2025-01-20 13:27 | NUR ---
PATIENT RETURNED TO UNIT FROM SCHEDULED PROCEDURE: PERIPHERAL ANGIOGRAM PERFORMED BY DR. Pulido
--- NOTE | 2025-01-20 17:30 | NUR ---
POST CARDIAC CATH ASSESSMENTS COMPLETED Patient returned to unit and assessments initiated at 1330 for 15 minutes x 4, 30 minutes x 2, and 1 hour x 2. Assessments as charted. Patient with palpable popliteal pulse to right lower extremity. Movement, sensation intact to right toes. Pulse oximeter placed to right great toe adequately recording oxygen saturation for entire duration of assessment. Dressing to left groin remains clean, dry and intact.
--- NOTE | 2025-01-20 19:19 | PN ---
[facility] PROGRESS NOTE Date of Service: Jan 20, 2025 Time of Service: 19:18 SUBJECTIVE: This is a 54-year-old male Marshallese-speaking, with past medical history of diabetes, hypertension, peripheral vascular disease status post right tibial artery with angioplasty and osteomyelitis of the right 4th toe with amputation who presented to the ED for complaints of right foot pain /swelling and right 3rd toe necrosis which started 1 week ago. Patient unable to determine how it started because he said he has neuropathy and he noticed a week ago it started hurting and the wound looks getting worse so he decided to come to be evaluated. Upon arrival to ER vital signs temperature 101.8, heart rate 104, blood pressure 154/85 saturation 98% on room air. In the ER Labs: Hemoglobin 12, hematocrit 35, platelet count 206. Sodium 132, chloride 94, glucose 230. Chest x-ray result revealed no acute pulmonary infiltrate is seen. Right Foot x-ray result revealed there is 3rd transmetatarsal amputation. Vascular calcifications are seen. Evaluation for osteomyelitis is limited with radiographs. There is no acute displaced fracture or dislocation. There is soft tissue swelling. Degenerative changes are seen. EKG result revealed sinus rhythm heart rate 94 with left ventricular hypertrophy inferior infarct old. While in the ER patient received Zosyn IV, vancomycin IV and received Tylenol 1000 mg p.o. and IV fluid resuscitation 30 mL/kilogram over 3 hours. Arterial ultrasound right lower extremity showing atherosclerotic disease, abnormal monophasic arterial waveform with the hyperemia seen in the right anterior tibial, posterior tibial, peroneal and dorsalis pedal arteries. Patient was for further medical management. Today patient is alert oriented x3, hemodynamically stable, getting good pain control with current medical management, getting IV antibiotics during my visit 01/16 patient is seen and examined at bedside, no acute events overnight, alert oriented x3, hemodynamically stable, getting IV antibiotics. Patient evaluated by teradata developer, and patient denied amputation of the stroke, next week. Arterial ultrasound showing atherosclerotic disease, abnormal monophasic arterial waveforms with hyperemia in the right anterior tibial, posterior tibial, peroneal and dorsalis pedal arteries. We will request Cardiology consultation. We will continue with aspirin 81 mg p.o. daily. Continue heparin 5000 units subcutaneously q.12 hours. We will order MRI of the right foot. 01/17 patient seen at bedside, no acute events overnight. Pending amputation today with Podiatry, will follow up postprocedure. 01/18 patient seen at bedside, no acute events overnight. He is s/p amputation, pain is controlled. Wound care per podiatry. PT consulted for evaluation and discharge recommendations. ID to provide discharge antibiotic recommendations. Labs are relatively unremarkable 01/19 pt seen at bedside, no acute events overnight. Cardiology pending vascular workup, will follow up. ID to provide discharge recommendations for antibi otics. 01/20 patient seen at bedside, no acute events overnight. Pending peripheral angiogram with possible intervention with Cardiology today, we will follow up postprocedure. Vitals and labs relatively unremarkable. REVIEW OF SYSTEMS 12 point review of systems negative unless noted in HPI PHYSICAL EXAM GENERAL APPEARANCE: The patient is awake, alert, and oriented, in no acute cardiopulmonary distress. NEUROLOGICAL: Cranial nerves II-XII grossly intact. Motor is 5/5 in bilateral upper and lower extremities proximal to distal. No sensory deficits. HEENT: Face is symmetric. Pupils are equal and reactive. Extraocular movements are intact. NECK: Supple. No JVD. No thyromegaly. No submental, submandibular, pre- /postauricular, occipital or supraclavicular lymphadenopathy. CHEST: Normal chest expansion. No Telemetry. LUNGS: Absence of any rales, rhonchi or any wheezing. CARDIOVASCULAR: Regular. S1 and S2 normal. No appreciable rubs, murmurs or gallops. ABDOMEN: Soft, nontender, and nondistended. There is no rebound, voluntary guarding, or rigidity. : Deferred. No Shirley. EXTREMITIES: Non-edematous and not cyanotic. No clubbing. Good capillary refill. SKIN: Right 3rd toe necrotic wound Vital Signs (last 8hr) Date Time Temp Pulse Resp B/P (MAP) Pulse Ox O2 Delivery O2 Flow Rate FiO2 01/20/25 18:05 84 18 118/77 98 Room Air 01/20/25 17:05 82 17 162/78 98 Room Air 01/20/25 16:05 71 18 139/115 99 Room Air 01/20/25 16:00 97.9 59 17 163/78 98 Room Air 01/20/25 15:05 59 17 141/82 97 Room Air 01/20/25 14:35 64 17 138/80 97 Room Air 01/20/25 14:05 61 16 141/79 97 Room Air 01/20/25 13:50 69 17 135/78 99 Room Air 01/20/25 13:35 56 17 132/76 99 Room Air 01/20/25 13:20 97.5 56 17 140/79 100 Room Air LABS: Laboratory: Test 01/20/25 15:58 01/20/25 04:10 Range/Units Whole Blood Glucose 117 H 70-110 MG/DL White Blood Count 5.4 4.8-10.8 K/uL Red Blood Count 4.15 L 4.50-6.20 MIL/uL Hemoglobin 12.4 L 14.0-18.0 g/dL Hematocrit 36.9 L 42-54 % Mean Corpuscular Volume 88.9 79-99 fL Mean Corpuscular Hemoglobin 29.9 27.0-33.0 pg Mean Corpuscular Hemoglobin Concent 33.6 32.0-36.0 g/dL Red Cell Distribution Width 13.2 11.0-15.5 % Platelet Count 354 # 130-400 K/uL Mean Platelet Volume 9.6 7.5-10.5 fL Immature Granulocyte % (Auto) 0.6 0-1 % Neutrophils (%) (Auto) 46.1 40.0-77.0 % Lymphocytes (%) (Auto) 33.6 21.0-51.0 % Monocytes (%) (Auto) 14.9 H 3.0-13.0 % Eosinophils (%) (Auto) 3.5 0.0-8.0 % Basophils (%) (Auto) 1.3 0.0-5.0 % Neutrophils # (Auto) 2.5 1.8-7.7 K/uL Lymphocytes # (Auto) 1.8 1.0-4.8 K/uL Monocytes # (Auto) 0.8 0.1-1.0 K/uL Eosinophils # (Auto) 0.19 0.00-0.70 K/uL Basophils # (Auto) 0.07 0.00-0.20 K/uL Absolute Immature Granulocyte (auto 0.03 0-1 K/uL Nucleated Red Blood Cells 0.0 0.0-0.19 % Prothrombin Time 10.4 9.6-11.6 SEC Prothromb Time International Ratio 0.98 0.85-1.15 Activated Partial Thromboplast Time 26.7 26.3-35.5 SEC Sodium Level 138 136-145 mmol/L Potassium Level 3.5 3.5-5.1 mmol/L Chloride Level 101 101-111 mmol/L Carbon Dioxide Level 27 21-32 mmol/L Blood Urea Nitrogen 9 7-18 mg/dL Creatinine 1.0 0.5-1.3 mg/dL Glomerular Filtration Rate Calc 89 >90 mL/min Random Glucose 130 H 70-105 mg/dL Total Calcium 9.1 8.5-10.1 mg/dL Current Medications Medications (Trade) Dose Ordered Sig/Apoorva Route PRN Reason Start Time Stop Time Status Last Admin Dose Admin Acetaminophen (TYLenol 325MG TAB) 650 mg Q4H PRN PO MILD PAIN (1-3) 01/14/25 22:00 02/13/25 21:59 Acetaminophen (TYLenol 325MG TAB) 650 mg Q6H PRN PO TEMPERATURE GREATER THAN 101.5 01/14/25 22:00 02/13/25 21:59 Acetaminophen/ Hydrocodone Bitart (NORco 5/325MG) 1 tab Q4H PRN PO MODERATE PAIN (4-6) 01/14/25 22:00 01/19/25 21:59 DC 01/15/25 22:54 1 TAB Acetaminophen/ Hydrocodone Bitart (NORco 5/325MG) 2 tab Q4H PRN PO SEVERE PAIN (7-10) 01/14/25 22:00 01/19/25 21:59 DC 01/17/25 23:33 2 TAB Amlodipine Besylate (NorvASC 5MG TAB) 5 mg DAILY PO 01/16/25 09:00 02/15/25 08:59 01/19/25 09:17 5 MG Aspirin (Aspirin 81mg Chew Tab) 81 mg DAILY PO 01/16/25 09:00 02/15/25 08:59 01/19/25 09:17 81 MG Atorvastatin Calcium (LIPItor 40MG) 40 mg HS PO 01/15/25 21:00 02/14/25 20:59 01/19/25 21:34 40 MG Clopidogrel Bisulfate (plaVIX 75MG) 75 mg DAILY PO 01/17/25 09:00 02/16/25 08:59 01/19/25 09:16 75 MG Dextrose (D50w) 50 ml AD PRN IV HYPOGLYCEMIA PROTOCOL 01/14/25 22:00 01/20/25 12:56 DC Dextrose (D50w) 50 ml AD PRN IV HYPOGLYCEMIA PROTOCOL 01/20/25 13:00 02/19/25 12:59 Famotidine (Pepcid 20mg Tab) 20 mg BID PO 01/14/25 22:30 02/13/25 22:29 01/19/25 21:33 20 MG Glipizide (GLUCOtrol XL 5MG TAB) 5 mg DAILY PO 01/17/25 09:00 01/17/25 06:09 DC Glucagon (Glucagon 1mg Kit) 1 mg AD PRN IM HYPOGLYCEMIA PROTOCOL 01/14/25 22:00 01/20/25 12:56 DC Glucagon (Glucagon 1mg Kit) 1 mg AD PRN IM HYPOGLYCEMIA PROTOCOL 01/20/25 13:00 02/19/25 12:59 Heparin Sodium (Porcine) (HEParin 5,000 UNIT VIAL) 5,000 unit Q12H SQ 01/14/25 22:00 02/13/25 21:59 01/19/25 21:35 5,000 UNIT Insulin Human Regular (humuLIN R 100 UNIT/ML 3ML) INSULIN SLIDING SCAL... ACHS SQ 01/15/25 07:30 02/14/25 07:29 01/19/25 21:35 5 UNIT Levofloxacin (LEvaquIN 750MG TAB) 750 mg Q24H PO 01/20/25 12:00 02/10/25 11:59 Magnesium Sulfate 50 ml @ 0 mls/hr PROTOCOL IV 01/15/25 12:00 02/14/25 11:59 01/17/25 05:02 25 MLS/HR Magnesium Sulfate 50 ml @ 0 mls/hr PROTOCOL PRN IV OTHER [SEE ORDER COMMENTS] 01/14/25 22:00 01/15/25 11:50 DC 01/15/25 05:45 25 MLS/HR Metformin HCl (glucoPHAGE) 500 mg BID PO 01/16/25 21:00 01/17/25 06:09 DC Ondansetron HCl (zoFRAN 4MG INJ) 4 mg Q6H PRN IV NAUSEA/VOMITING 01/14/25 22:00 02/13/25 21:59 Piperacillin Sod/ Tazobactam Sod 50 ml @ 12.5 mls/hr ZOSY8 IV 01/15/25 05:00 01/20/25 11:54 DC 01/20/25 05:07 12.5 MLS/HR Potassium Chloride 100 ml @ 100 mls/hr AD PRN IV POTASSIUM PROTOCOL 01/14/25 22:00 02/13/25 21:59 Potassium Chloride (K-Dur/Klor-Con 20meq) 20 meq AD PRN PO POTASSIUM PROTOCOL 01/14/25 22:00 02/13/25 21:59 Potassium Chloride (KCl 10% Elixir 20meq/15ml) 20 meq AD PRN PO POTASSIUM PROTOCOL 01/14/25 22:00 02/13/25 21:59 Sodium Chloride 1,000 ml @ 100 mls/hr Q10H IV 01/14/25 22:00 01/20/25 12:58 DC 01/20/25 08:00 100 MLS/HR Sodium Chloride 1,000 ml @ 100 mls/hr Q10H IV 01/20/25 13:00 01/20/25 15:59 DC Vancomycin HCl 250 ml @ 125 mls/hr ONCE IV 01/14/25 22:00 01/14/25 22:08 DC Vancomycin HCl 250 ml @ 125 mls/hr Q12H IV 01/15/25 08:00 01/16/25 06:17 DC 01/15/25 22:00 125 MLS/HR Vancomycin HCl 250 ml @ 125 mls/hr Q12H IV 01/16/25 10:00 01/20/25 11:54 DC 01/19/25 21:33 125 MLS/HR Vancomycin HCl (Vancomycin Protocol) 1 each AD IV 01/14/25 19:00 01/16/25 14:07 DC DIAGNOSTICS / RADIOLOGY: [ ] ASSESSMENT: Sirs with organ dysfunction POA Suspected right 3rd toe osteomyelitis POA s/p 3rd toe amputation (01/17/25) Right foot pain POA Peripheral vascular disease POA Uncontrolled diabetes POA Chronic anemia POA Pseudohyponatremia POA PLAN: Continue the patient on broad-spectrum IV antibiotics Continue aspirin 81mg q24h Continue plavix 75mg q24h Continue amlodipine 5mg q24h Continue atorvastatin 40mg HS Continue Heparin 5000 BID Infectious disease consultation requested, noted and appreciated, continue broad-spectrum antibiotics Podiatry consultation requested, input noted and appreciated, the patient may require amputation. Pending amputation, will follow up post procedure Cardiology consulted, appreciate recommendations PT to evaluate Disposition: Cardiology pending vascular workup, ID recommendations for discharge antibiotics JOSH RAMIREZ MD Jan 20, 2025 19:19
--- NOTE | 2025-01-20 21:33 | PN ---
INFECTIOUS DISEASE PROGRESS NOTE Date of Service: Jan 20, 2025 SUBJECTIVE: This is a 54-year-old male patient who was seen and examined at bedside room 301. Patient is awake, alert and oriented x3. Patient is status post amputation of the right 3rd toe on 01/17/2025. Patient is afebrile, temperature is 98.2. Patient is scheduled for peripheral angiogram for today. From Infectious Disease standpoint patient can be discharged on levofloxacin 750 mg p.o. Q 24 hours x 10 days when ready to discharge. Prescription was written. PHYSICAL EXAM EYES: Anicteric. Pupils equal and reactive. HENT: No oral thrush seen, moist Oral mucosa NECK: Supple, no JVD or thyromegaly. LUNGS: Good air entry. No rales, no rhonchi. CARDIOVASCULAR: S1, S2 regular. No murmur heard. ABDOMEN: Soft, non tender, bowel sounds present, no organomegaly CENTRAL NERVOUS SYSTEM: Awake, alert, oriented x 3. No focal deficits. SKIN: No rashes, no swelling. LYMPHATICS: No peripheral lymphadenopathy MUSCULOSKELETAL: No joint swelling, erythema or tenderness. EXTREMITIES: No cyanosis or clubbing BACK: No deformity, no pressure ulcer. GENITOURINARY: No dysuria or hematuria Vital Sign (Last 12 Hours) 01/20/25 01/20/25 01/20/25 01/20/25 13:20 13:35 13:50 14:05 Temp 97.5 Pulse 56 56 69 61 Resp 17 17 17 16 B/P (MAP) 140/79 132/76 135/78 141/79 Pulse Ox 100 99 99 97 O2 Delivery Room Air Room Air Room Air Room Air 01/20/25 01/20/25 01/20/25 01/20/25 14:35 15:05 16:00 16:05 Temp 97.9 Pulse 64 59 59 71 Resp 17 17 17 18 B/P (MAP) 138/80 141/82 163/78 139/115 Pulse Ox 97 97 98 99 O2 Delivery Room Air Room Air Room Air Room Air 01/20/25 01/20/25 01/20/25 17:05 18:05 19:05 Pulse 82 84 67 Resp 17 18 17 B/P (MAP) 162/78 118/77 110/71 Pulse Ox 98 98 98 O2 Delivery Room Air Room Air Room Air Intake & Output (last 24hrs) 01/19/25 01/19/25 01/20/25 15:00 23:00 07:00 Intake Total 660.0 ml 50.0 ml Output Total 400 ml 300 ml 400 ml Balance -400 ml 360.0 ml -350.0 ml LABS: Laboratory: Test 01/20/25 19:19 01/20/25 04:10 Range/Units Whole Blood Glucose 310 #H 70-110 MG/DL White Blood Count 5.4 4.8-10.8 K/uL Red Blood Count 4.15 L 4.50-6.20 MIL/uL Hemoglobin 12.4 L 14.0-18.0 g/dL Hematocrit 36.9 L 42-54 % Mean Corpuscular Volume 88.9 79-99 fL Mean Corpuscular Hemoglobin 29.9 27.0-33.0 pg Mean Corpuscular Hemoglobin Concent 33.6 32.0-36.0 g/dL Red Cell Distribution Width 13.2 11.0-15.5 % Platelet Count 354 # 130-400 K/uL Mean Platelet Volume 9.6 7.5-10.5 fL Immature Granulocyte % (Auto) 0.6 0-1 % Neutrophils (%) (Auto) 46.1 40.0-77.0 % Lymphocytes (%) (Auto) 33.6 21.0-51.0 % Monocytes (%) (Auto) 14.9 H 3.0-13.0 % Eosinophils (%) (Auto) 3.5 0.0-8.0 % Basophils (%) (Auto) 1.3 0.0-5.0 % Neutrophils # (Auto) 2.5 1.8-7.7 K/uL Lymphocytes # (Auto) 1.8 1.0-4.8 K/uL Monocytes # (Auto) 0.8 0.1-1.0 K/uL Eosinophils # (Auto) 0.19 0.00-0.70 K/uL Basophils # (Auto) 0.07 0.00-0.20 K/uL Absolute Immature Granulocyte (auto 0.03 0-1 K/uL Nucleated Red Blood Cells 0.0 0.0-0.19 % Prothrombin Time 10.4 9.6-11.6 SEC Prothromb Time International Ratio 0.98 0.85-1.15 Activated Partial Thromboplast Time 26.7 26.3-35.5 SEC Sodium Level 138 136-145 mmol/L Potassium Level 3.5 3.5-5.1 mmol/L Chloride Level 101 101-111 mmol/L Carbon Dioxide Level 27 21-32 mmol/L Blood Urea Nitrogen 9 7-18 mg/dL Creatinine 1.0 0.5-1.3 mg/dL Glomerular Filtration Rate Calc 89 >90 mL/min Random Glucose 130 H 70-105 mg/dL Total Calcium 9.1 8.5-10.1 mg/dL ASSESSMENT: Right 3rd toe gangrene and osteomyelitis, status post amputation on 01/17/2025. Right foot with polymicrobial infection. Infection with methicillin sensitive Staphylococcus aureus. Left foot cellulitis. Peripheral vascular disease. Diabetes mellitus. PLAN: Continue vancomycin per pharmacy protocol. Continue Zosyn IV. Continue pain management. Continue wound care. Continue GI prophylaxis. Continue antiplatelets. Patient is scheduled for peripheral angiogram today. Infectious Disease standpoint patient can be discharged on levofloxacin 750 mg p.o. every 24 hours x 10 days when ready to discharge This case was reviewed and discussed with my supervising physician and the above assessment and plan was formulated and agreed upon. ATTESTATION BY PHYSICIAN I have seen and examined the patient. I reviewed the documentation, medical decision making, and treatment plan as noted by the mid-level provider above. I agree with the findings and plan of care. SERGIO THOMASON MD, [facility] Jan 20, 2025 21:33
[2025-01-20] MEDS: 0.9%NACL 1000ML 1,000 ML IV SCH (21:43)
[2025-01-21 03:54] VITALS: BP 131/76; PULSE 74; RESP 16; TEMP 98
[2025-01-21 07:51] VITALS: BP 118/78; PULSE 80; RESP 18; TEMP 99.1
[2025-01-21 08:00] VITALS: O2SAT 100
--- NOTE | 2025-01-21 11:24 | PN ---
Cardiology Progress Note Date of Service: 01/21/2025 Attending Shipping Agent: Dr. Thor Morales Reason For Consult: PAD Problem List: -Osteomyelitis and cellulitis (polymicrobial infection) affecting the 3rd digit of the right foot s/p amputation of the 3rd digit of the right foot done on 01/17/2025 -PAD, Tipton category 5 symptoms (RLE) s/p successful treatment with balloon angioplasty and balloon lithotripsy in the ostial CHUN, balloon lithotripsy, balloon angioplasty, and balloon lithotripsy in the distal CHUN and DPA, and balloon angioplasty and balloon lithotripsy in the distal HOUSING CASE MANAGER done on 01/20/[address] Morales -PAD s/p amputation of the 4th digit of the right foot done on 03/31/2024 s/p successful treatment with balloon lithotripsy and balloon angioplasty of the distal right anterior tibial artery done on 04/02/[address] Morales -Residual 80% stenosis in the distal right posterior tibial artery -HTN -HLP -Poorly controlled DM2 -Noncompliance with outpatient follow up Subjective: This is a 54y/o male who was seen and evaluated at the bedside today. The patient underwent successful percutaneous peripheral intervention of the right lower extremity by Dr. Morales yesterday. He tolerated the procedure well and without issue. He denies any active complaints including chest pain, chest pressure, palpitations, shortness of breath, or lower extremity pain. As per the nurse, there were no overnight events. TCOM analysis of the right lower extremity is pending. Vitals/Labs Vital Signs Date Time Temp Pulse Resp B/P (MAP) Pulse Ox O2 Delivery O2 Flow Rate FiO2 01/21/25 07:51 99.1 80 18 118/78 100 Room Air 01/20/25 19:30 0 21 General: Awake and alert x 3. No acute distress. HEENT: Normocephalic, atraumatic. EOMI. Oral mucosa was moist. Neck: No masses, JVD, or carotid bruits noted. Lungs: No respiratory distress. Symmetric chest movement. Bilaterally clear to auscultation. No wheezing, rales, or rhonchi. Cardiac: Regular rate. Normal S1 and S2, +S4. No other murmurs, rubs, or gallops noted. Abdomen: Soft, nontender, nondistended. No organomegaly. Normal active bowel sounds x 4 quadrants. Extremities: No edema, clubbing, or cyanosis. Neuro: Cranial nerves II-XII are grossly intact. No focal deficits identified. Assessment: -Osteomyelitis and cellulitis (polymicrobial infection) affecting the 3rd digit of the right foot s/p amputation of the 3rd digit of the right foot done on 01/17/2025 -PAD, Tipton category 5 symptoms (RLE) s/p successful treatment with balloon angioplasty and balloon lithotripsy in the ostial CHUN, balloon lithotripsy, balloon angioplasty, and balloon lithotripsy in the distal CHUN and DPA, and balloon angioplasty and balloon lithotripsy in the distal HOUSING CASE MANAGER done on 01/20/[address] Morales -PAD s/p amputation of the 4th digit of the right foot done on 03/31/2024 s/p successful treatment with balloon lithotripsy and balloon angioplasty of the distal right anterior tibial artery done on 04/02/[address] Morales -Residual 80% stenosis in the distal right posterior tibial artery -HTN -HLP -Poorly controlled DM2 -Noncompliance with outpatient follow up Plan: 1. PAD, Tipton category 5 symptoms (RLE) s/p successful treatment with balloon angioplasty and balloon lithotripsy in the ostial CHUN, balloon lithotripsy, balloon angioplasty, and balloon lithotripsy in the distal CHUN and DPA, and balloon angioplasty and balloon lithotripsy in the distal HOUSING CASE MANAGER done on 01/20/[address] Morales -Stable -The patient is pending a TCOM analysis to assess his potential for wound healing. -In the meantime, he will continue on conservative GDMT which includes aspirin 81 mg daily, clopidogrel 75 mg daily, and atorvastatin 40 mg QHS. The patient should remain on DAPT for a minimum of 6 months, but optimally for 1 year post intervention. -In addition, he should continue with aggressive wound care and antibiotic therapy. This case was discussed with my Supervising Physician, Dr. Thor Morales, and the above mentioned plan was formulated and agreed upon. -Progress note written by Jose Medellin, MSN, DRY BOX TENDER, AGACNP-BC JOSE MEDELLIN NP Jan 21, 2025 11:24
[2025-01-21 11:30] VITALS: BP 143/88; PULSE 67; RESP 18; TEMP 98.2
--- NOTE | 2025-01-21 14:10 | NUR ---
[facility] Follow-up: Patient re-assessed by wound healing team. See wound assessment. Assessment and recommendations provided to primary nurse. Education provided. Wound care done. Addendum: 01/21/25 at 1613 by INGRID MINAYA RN RN/ Amended: Links added.
[2025-01-21] MEDS ORDERED: LEVO750T68 PO (15:24)
--- NOTE | 2025-01-21 15:51 | DS ---
Discharge Summary Hospital Course Summary: 54-year-old male Colombian-speaking, with past medical history of diabetes, hypertension, peripheral vascular disease status post right tibial artery with angioplasty and osteomyelitis of the right 4th toe with amputation who presents to the ED for complaints of right foot pain /swelling and right 3rd toe is necrotic which started 1 week ago.Patient unable to determine how it started because he said he has neuropathy and he noticed a week ago it started hurting and the wound looks getting worse so he decided to come to be evaluated. Upon arrival to ER vital signs temperature 101.8, heart rate 104, blood pressure 154/85 saturation 98% on room air. Chest x-ray result revealed no acute pulmonary infiltrate is seen. Right Foot x-ray result revealed there is 3rd transmetatarsal amputation. Vascular calcifications are seen. Evaluation for osteomyelitis is limited with radiographs. There is soft tissue swelling. Degenerative changes are seen. He was admitted, started on empiric antibiotics. Podiatry was consulted, recommended vascular workup and infectious disease assistance. Patient was taken for amputation before a peripheral angiogram with balloon angioplasty and balloon lithotripsy were performed at multiple locations. He tolerated the procedure well, see the procedure note for more details. By hospital day 8 he was evaluated as stable and cleared for discharge. He will be discharged home with optimized medications and antibi otics. He has been taught appropriate wound care . High School Coach(s): Podiatry Infectious Disease Cardiology Procedure(s): CT ANGIO ABD AORTA W RUNOFF HISTORY: Peripheral arterial disease COMPARISON: None TECHNIQUE: CT angiography of the abdomen and pelvis and bilateral lower extremities was obtained using angiographic technique with maximum intensity projection reconstruction images. Patient was given 125 cc of Omnipaque through intravenous route. Oral contrast was not given. FINDINGS: No pleural effusion is seen bilaterally. There is no evidence of parenchymal disease or pulmonary nodule of the visualized lower lungs. Degenerative changes of the thoracolumbar spine are present. The heart is borderline enlarged. Coronary artery calcifications are seen. The liver, spleen, adrenal glands and pancreas are unremarkable. There is no evidence of hydronephrosis bilaterally. Bilateral renal vascular calcifications are seen. There is diverticulosis Fecal material is seen in the colon. There are normal size retroperitoneal and mesenteric lymph nodes. No ascites is seen. Atherosclerotic changes are present. There is diffuse atherosclerotic disease. No evidence of abdominal aortic aneurysm is seen. The celiac, superior mesenteric and bilateral renal arteries are grossly patent. The visualized portion of the iliac and femoral arterial systems are also grossly patent. Extensive vascular calcifications are seen. Popliteal, anterior tibial and peroneal arteries are grossly patent bilaterally. Right posterior tibial artery is patent. There is occlusion of the left posterior tibial artery in the mid calf level. Pelvic sidewalls are symmetric bilaterally. Bladder is well distended without wall thickening. IMPRESSION: 1. Atherosclerosis. Occlusion of left posterior tibial artery at mid calf level. MR FOOT RIGHT WWO HISTORY: Osteomyelitis COMPARISON: 03/29/2024 TECHNIQUE: MRI of the right foot was performed utilizing multiple pulse sequences in axial, coronal and sagittal planes. Patient was given Clariscan through intravenous route. FINDINGS: Transmetatarsal amputation of fourth toe is seen. This is a suboptimal study due to extensive motion artifacts. There is soft tissue swelling of the third toe suggestive of cellulitis. Abnormal increased signal intensity is seen about the third toe suggestive of osteomyelitis. Degenerative changes are seen. IMPRESSION: 1. Findings suggestive of osteomyelitis and cellulitis involving third toe. This is a suboptimal study due to extensive motion artifacts. US ARTERIAL UNILA LOW EXT DUPL HISTORY: Chronic ulcer COMPARISON: None TECHNIQUE: Right lower extremity arterial Doppler ultrasound study was performed. FINDINGS: Normal triphasic arterial waveforms are noted in the right common femoral, deep femoral, superficial femoral, popliteal arteries. Abnormal monophasic arterial waveforms with hyperemia are seen in the right anterior tibial, posterior tibial, peroneal and dorsalis pedal arteries. On the right, the peak systolic velocity of the common femoral artery is 87 cm/s, the proximal femoral artery is 86 cm/s, the mid femoral artery is 97 cm/s, the distal femoral artery is 95 cm/s, the proximal popliteal artery is 79 cm/s, the distal popliteal artery is 67 cm/s, the anterior tibial artery is 182 cm/s, the posterior tibial artery artery is 149 cm/s, peroneal artery is 83 cm/s and the dorsalis pedal artery is 111 cm/s. IMPRESSION: 1. Atherosclerotic disease. 2. Abnormal monophasic arterial waveforms with hyperemia are seen in the right anterior tibial, posterior tibial, peroneal and dorsalis pedal arteries.. TOE(S) 2+VWS RT HISTORY: Right third toe osteotomy COMPARISON: None TECHNIQUE: 3 images of right third toe were obtained. FINDINGS: Transmetatarsal amputation of fourth toe is seen. Soft tissue swelling is seen. Evaluation for osteomyelitis is limited with radiographs. Vascular calcifications are seen. There is no acute displaced fracture or dislocation. Degenerative changes are seen. IMPRESSION: 1. Findings as described above. FOOT COMP 3+VWS RT HISTORY: Right third toe posteriorly COMPARISON: None TECHNIQUE: 3 images of the right foot were obtained. FINDINGS: There is fourth toe transmetatarsal amputation. Vascular calcifications are seen. Evaluation for osteomyelitis is limited with radiographs. There is no acute displaced fracture or dislocation. There is soft tissue swelling. Degenerative changes are seen. IMPRESSION: 1. Findings as described above. HISTORY: Right third toe posteriorly COMPARISON: None TECHNIQUE: 3 images of the right foot were obtained. FINDINGS: There is third transmetatarsal amputation. Vascular calcifications are seen. Evaluation for osteomyelitis is limited with radiographs. There is no acute displaced fracture or dislocation. There is soft tissue swelling. Degenerative changes are seen. IMPRESSION: 1. Findings as described above. CHEST 1VW HISTORY: Right third toe osteo COMPARISON: 03/29/2024 FINDINGS: A frontal projection of the chest was obtained. No acute pulmonary infiltrates is seen. The heart is borderline enlarged. Prominent interstitial markings are seen. Mild degenerative changes are seen. IMPRESSION: 1. No acute pulmonary infiltrate is seen. Assessment/Plan: Sirs with organ dysfunction POA Suspected right 3rd toe osteomyelitis POA s/p 3rd toe amputation (01/17/25) Right foot pain POA Peripheral vascular disease s/p peripheral angiogram with balloon angioplasty and lithotripsy, POA Uncontrolled diabetes last A1C 9.6 POA Chronic anemia POA Pseudohyponatremia POA Discharge Instructions: Follow up with PCP in 3-7 days Follow up with animal caretaker in 2 weeks Follow up with die storage clerk in 1-2 weeks Home Medications: Active Scripts Glipizide (Glipizide ER) 5 Mg Tab.er.24, 5 MG PO DAILY for 30 Days, #30 TAB 1 Refill Prov:ONOFRE CARABALLO MD 04/04/24 Metformin HCl (Metformin HCl) 500 Mg Tablet, 500 MG PO BID for 30 Days, #60 TAB 1 Refill Prov:ONOFRE CARABALLO MD 04/04/24 Clopidogrel Bisulfate (Plavix) 75 Mg Tablet, 75 MG PO DAILY for 30 Days, #30 TAB 1 Refill Prov:ONOFRE CARABALLO MD 04/04/24 Atorvastatin Calcium (LIPITOR) 40 Mg Tablet, 40 MG PO HS for 30 Days, #30 TAB 1 Refill Prov:ONOFRE CARABALLO MD 04/04/24 Aspirin (ASPIRIN 81MG CHEW TAB) 81 Mg Tab.chew, 81 MG PO DAILY for 30 Days, #30 TAB.CHEW 1 Refill Prov:ONOFRE CARABALLO MD 04/04/24 Amlodipine Besylate (Norvasc 5Mg Tab) 5 Mg Tablet, 5 MG PO DAILY for 30 Days, #30 TAB 1 Refill Prov:ONOFRE CARABALLO MD 04/04/24 New Medications: Levofloxacin (Levaquin 750Mg Tabs) 750 Mg Tablet 750 MG PO Q24H, #10 TAB Continued Medications: Amlodipine Besylate (Norvasc 5Mg Tab) 5 Mg Tablet 5 MG PO DAILY for 30 Days, #30 TAB 1 Refill Aspirin (Aspirin 81MG Chew Tab) 81 Mg Tab.chew 81 MG PO DAILY for 30 Days, #30 TAB.CHEW 1 Refill Atorvastatin Calcium (Lipitor) 40 Mg Tablet 40 MG PO HS for 30 Days, #30 TAB 1 Refill Clopidogrel Bisulfate (Plavix) 75 Mg Tablet 75 MG PO DAILY for 30 Days, #30 TAB 1 Refill Glipizide (Glipizide ER) 5 Mg Tab.er.24 5 MG PO DAILY for 30 Days, #30 TAB 1 Refill Metformin HCl (Metformin HCl) 500 Mg Tablet 500 MG PO BID for 30 Days, #60 TAB 1 Refill Time spent arranging discharge: 31-60 minutes JOSH RAMIREZ MD Jan 21, 2025 15:51
[2025-01-21 15:52] VITALS: BP 139/80; PULSE 60; RESP 18; TEMP 98.2
--- NOTE | 2025-01-21 17:00 | NUR ---
PATIENT DISCHARGED HOME ID BAND AND IV REMOVED. DISCHARGE INSTRUCTIONS EXPLAINED AND GIVEN TO PATIENT. PATIENT VERBALIZED UNDERSTANDING. BELONGINGS PACKED AND TAKEN BY PATIENT. WHEELED DOWN TO PRIVATE CAR.
--- NOTE | 2025-01-23 11:11 | NUR ---
Transitional Phone Call Patient is Luxembourgish speaking. Spoke with patient, states "me jimenez head." States he is washing and cleaning his wound every morning and monitoring it and the wound looks good. States did pickle maker prescription medication and is taking it; no questions or concerns. States he has not made follow up appointments because he was working with [employer] to apply for insurance coverage and has not heard back; referred to [employer], left a message with [employer] to notify on voicemail. Referred him to the [facility], [facility] or [facility] in [place] [phone].
== END 2025-01-21 17:01 | disposition home or self-care (01) | DRG 278 ==
LOC: EDH 18:27 → EDHIP 18:28 → 3AH 22:49
PROVIDERS: ADMIT Internal Medicine; ATTEND Internal Medicine
PROC: 0Y6T0Z0 Detachment at Right 3rd Toe, Complete, Open Approach (ICD-10-PCS; principal; 2025-01-17 09:12)
PROC: 04FP3ZZ Fragmentation of Right Anterior Tibial Artery, Percutaneous Approach (ICD-10-PCS; 2025-01-20)
PROC: 047P3ZZ Dilation of Right Anterior Tibial Artery, Percutaneous Approach (ICD-10-PCS; 2025-01-20)
PROC: 047R3ZZ Dilation of Right Posterior Tibial Artery, Percutaneous Approach (ICD-10-PCS; 2025-01-20)
PROC: 04FR3ZZ Fragmentation of Right Posterior Tibial Artery, Percutaneous Approach (ICD-10-PCS; 2025-01-20)
PROC: B4101ZZ Fluoroscopy of Abdominal Aorta using Low Osmolar Contrast (ICD-10-PCS; 2025-01-20)
PROC: B41F1ZZ Fluoroscopy of Right Lower Extremity Arteries using Low Osmolar Contrast (ICD-10-PCS; 2025-01-20)
PROC: B41G1ZZ Fluoroscopy of Left Lower Extremity Arteries using Low Osmolar Contrast (ICD-10-PCS; 2025-01-20)
DX: E11.52 Type 2 diabetes mellitus with diabetic peripheral angiopathy with gangrene (principal); R65.11 Systemic inflammatory response syndrome (SIRS) of non-infectious origin with acute organ dysfunction; L03.116 Cellulitis of left lower limb; M86.8X8 Other osteomyelitis, other site; E11.69 Type 2 diabetes mellitus with other specified complication; D64.9 Anemia, unspecified; E11.65 Type 2 diabetes mellitus with hyperglycemia; I11.9 Hypertensive heart disease without heart failure; E11.628 Type 2 diabetes mellitus with other skin complications; E78.5 Hyperlipidemia, unspecified; L03.031 Cellulitis of right toe; B95.61 Methicillin susceptible Staphylococcus aureus infection as the cause of diseases classified elsewhere; L97.519 Non-pressure chronic ulcer of other part of right foot with unspecified severity; Z91.199 Patient's noncompliance with other medical treatment and regimen due to unspecified reason; Z89.429 Acquired absence of other toe(s), unspecified side; Z79.82 Long term (current) use of aspirin
CPT/HCPCS: 36415; 37232; 71045; 73630; 73660; 73720; 75635; 80048; 80053; 80202; 82948; 83036; 83605; 83735; 84100; 84145; 84484; 85025; 85027; 85347; 85610; 85651; 85730; 87040; 87070; 87076; 87086; 87186; 87205; 93005; 93923; 93926; 99156; 99157; C1760; C1769; C1893; C1894; C9772; G0378; J1100; J1644; J1815; J2003; J2250; J2405; J2543; J2704; J3010; J3370; J3475; J3490; J7030; Q9967; A4600; A4649; A4930; A9575; C1725; C1761; C1887; J0665

== ENCOUNTER 2025-02-13 10:25 | Emergency (ER) | payer SELFPAY ==
[~2025-02-13] VITALS: Ht 154.9 cm; Wt 63.5 kg
[~2025-02-13 10:25] MED LIST changes: +LEVO750T68 PO
--- NOTE | 2025-02-13 11:53 | ERN ---
ED Note History of Present Illness Stated Complaint: WOUND PAIN Chief Complaint: Wound Check Time Seen by MD: 11:02 Dictation: 54-year-old male presents to the ED for evaluation of right foot wound evaluation and suture removal. Patient reports he had a right toe amputation performed by Dr. Pereira and had a follow up on February 07, but patient was unable to attend due to not having a form of transportation. Patient denies any fever, erythema, pain or any other associated symptoms at this time. Allergies: Coded Allergies: No Known Drug Allergies (Unverified Allergy, Unknown, 03/29/24) Home Meds Active Scripts Levofloxacin (Levaquin 750Mg Tabs) 750 Mg Tablet, 750 MG PO Q24H, #10 TAB Prov:JOSH RAMIREZ MD 01/21/25 Glipizide (Glipizide ER) 5 Mg Tab.er.24, 5 MG PO DAILY for 30 Days, #30 TAB 1 Refill Prov:ONOFRE CARABALLO MD 04/04/24 Metformin HCl (Metformin HCl) 500 Mg Tablet, 500 MG PO BID for 30 Days, #60 TAB 1 Refill Prov:ONOFRE CARABALLO MD 04/04/24 Clopidogrel Bisulfate (Plavix) 75 Mg Tablet, 75 MG PO DAILY for 30 Days, #30 TAB 1 Refill Prov:ONOFRE CARABALLO MD 04/04/24 Atorvastatin Calcium (LIPITOR) 40 Mg Tablet, 40 MG PO HS for 30 Days, #30 TAB 1 Refill Prov:ONOFRE CARABALLO MD 04/04/24 Aspirin (ASPIRIN 81MG CHEW TAB) 81 Mg Tab.chew, 81 MG PO DAILY for 30 Days, #30 TAB.CHEW 1 Refill Prov:ONOFRE CARABALLO MD 04/04/24 Amlodipine Besylate (Norvasc 5Mg Tab) 5 Mg Tablet, 5 MG PO DAILY for 30 Days, #30 TAB 1 Refill Prov:ONOFRE CARABALLO MD 04/04/24 Past Medical History Past Medical History: Diabetes-Type II, Hypertension Surgical History: None Surgical History Other: TMA Review of System Dictation Constitutional: Negative for fever,chills, and weight loss Eyes: Negative for injury, pain,redness, and discharge ENT: Negative for injury,pain or swelling Cardiovascular: Negative for chest pain, palpitations, and edema Respiratory: Negative for shortness of breath, cough, and wheezing, Abdomen/GI: Negative for abdominal pain, nausea, vomiting, diarrhea, and constipation Back: Negative for injury and pain : Negative for injury, bleeding and discharge MS/Extremity: Positive for right foot wound Negative for injury and deformity Skin: Negative for rash, and discoloration Neuro: Negative for headache, weakness, numbness, tingling, and seizure Psych: Negative for suicide ideation, homicidal ideation, and hallucinations Initial Vital Sign VS Vital Signs Date Time Temp Pulse Resp B/P (MAP) Pulse Ox O2 Delivery O2 Flow Rate FiO2 02/13/25 10:27 98.1 86 16 144/86 100 Room Air* 0 21 Physical Exam Dictation General: awake, alert, NAD Head/Face: Normocephalic, atraumatic Eyes: PERRL, EOMI, vision at baseline ENT: oral cavity clear, TMs clear, no signs of infection Neck: Trachea midline, supple, no nuchal rigidity Cardiovascular: RRR, normal S1/S2, No MRGs, no JVD Respiratory: CTAB, no respiratory distress, No rales or wheezes Abdomen: Soft, non-tender, non-distended, normal bowel sounds, no guarding or rebound. Skin: Warm, dry, normal turgor, no rash MS/Extremity: Pulses equal, no cyanosis, neurovascular intact, right 4th toe amputation with sutures wound well healing, clean dry intact Neuro: COAx4, GCS 15, strength 5/5, CN 2-12 intact, normal cerebellar exam, normal gait, Psych: Normal behavior, mood, and affect normal ED Course ED Course Vital Signs Date Time Temp Pulse Resp B/P (MAP) Pulse Ox O2 Delivery O2 Flow Rate FiO2 02/13/25 11:44 98.1 86 16 144/86 100 Room Air* 0 21 02/13/25 10:27 98.1 86 16 144/86 100 0 02/13/25 10:27 98.1 86 16 144/86 100 Room Air* 0 21 Medical Decision Making MDM MDM: Differential diagnosis: Right wound evaluation, visit for wound check 1148- Dr. Pereira consult recommends patient follow up out patient Risk of complication and/or morbidity or mortality of patient management: None Medications-Per medication reconciliation Need for hospitalization: Patient does not meet criteria for hospitalization. Need for emergency major/minor surgery: No There are no social concerns with this patient. Medical management and examination interpretation discussions were had by me with other qualified healthcare professionals as indicated for the patient's car e. DX & DISP Disposition: Discharge Departure Impression: Primary Impression: Visit for wound check Condition: Stable Referrals: SELF,REFERRAL (PCP) CHANDRAKANT PEREIRA DPM Time of Disposition: 11:53 NAUN CHAPPELL MD February 13, 2025 11:53
[2025-02-13 12:26] VITALS: BP 138/88; PULSE 84; RESP 16; TEMP 98.1; O2SAT 100
== END 2025-02-13 12:27 | disposition home or self-care (01) ==
LOC: EDH 10:25
DX: E11.9 Type 2 diabetes mellitus without complications (principal); I10 Essential (primary) hypertension; Z79.02 Long term (current) use of antithrombotics/antiplatelets; Z48.00 Encounter for change or removal of nonsurgical wound dressing; Z79.82 Long term (current) use of aspirin; Z79.84 Long term (current) use of oral hypoglycemic drugs; Z79.899 Other long term (current) drug therapy
CPT/HCPCS: 99281

== ENCOUNTER 2025-06-01 12:07 | Emergency (ER) | payer SELFPAY ==
[~2025-06-01] VITALS: Ht 162.6 cm; Wt 63.5 kg
[~2025-06-01 12:07] MED LIST changes: +ACET-2247 PO; +AEC81 PO; -AMLO5TAB4 PO; -ASPI-1005 PO; -ATOR40TA69 PO; -CLOP-31 PO; +FOLI1 PO; +GABA100C PO; -GLIP-300 PO; +INSU100I35 SQ; +IODOG TP; -LEVO750T68 PO; -METF-444 PO; +METF-446 PO; +TRAM-543 PO; +TRIA454O TP
[2025-06-01 12:10] VITALS: BP 106/71; PULSE 96; RESP 18; TEMP 98.4
--- NOTE | 2025-06-01 13:26 | ERN ---
General Chief Complaint: Other Problems Stated Complaint: FOLLOW UP, POST OP [facility]KA Time Seen by MD: 12:27 History of Present Illness Initial Comments 54-year-old male came in for wound evaluation. Patient had a left below-knee amputation wants to make sure his wound is healing properly. Patient otherwise has no concerns. Allergies: Coded Allergies: No Known Drug Allergies (Unverified Allergy, Unknown, 03/29/24) Home Meds Active Scripts Gabapentin (Neurontin) 100 Mg Capsule, 100 MG PO TID, #90 CAP Prov:SEBASTIÁN CONWAY MD 05/12/25 Folic Acid (Folvite) 1 Mg Tab, 1 MG PO DAILY, #30 TAB Prov:SEBASTIÁN CONWAY MD 05/12/25 Cadexomer Iodine (Iodosorb Gel) 0.9 % Gel, 1 APPL TP DAILY, #1 GEL Prov:SEBASTIÁN CONWAY MD 05/12/25 Aspirin (ASPIRIN 81 MG ECTAB) 81 Mg Ectab, 81 MG PO DAILY, #60 TAB.EC Prov:SEBASTIÁN CONWAY MD 05/12/25 Acetaminophen (Tylenol) 325 Mg Tablet, 650 MG PO Q6H PRN for MILD PAIN (1-3), #30 TAB Prov:SEBASTIÁN CONWAY MD 05/12/25 Triamcinolone Acetonide (Triamcinolone Acetonide) 0.1 % Oint...g., 1 APPL TP BID for 30 Days, #454 GM 0 Refills apply to affected area(s) Prov:SEBASTIÁN CONWAY MD 05/12/25 Metformin HCl (Metformin HCl) 1,000 Mg Tablet, 1 TAB PO BID for 30 Days, #60 TAB 0 Refills Prov:SEBASTIÁN CONWAY MD 05/12/25 Insulin NPH Hum/Reg Insulin Hm (Novolin 70-30 Flexpen) 100 Unit/Ml (70-30) Insuln.pen, 10 UNIT SQ PM, #5 SYRINGE Prov:SEBASTIÁN CONWAY MD 05/12/25 Insulin NPH Hum/Reg Insulin Hm (Novolin 70-30 Flexpen) 100 Unit/Ml (70-30) Insuln.pen, 20 UNIT SQ AM, #10 SYRINGE Prov:SEBASTIÁN CONWAY MD 05/12/25 Tramadol HCl/Acetaminophen (Tramadol-Acetaminophn 37.5-325) 37.5 Mg-325 Mg Tablet, 1 TAB PO TIDP PRN for pain for 7 Days, #21 TAB 0 Refills Prov:SHANNAN SHARMA MD 05/12/25 Past Medical History Past Medical History: Diabetes-Type II, Hypertension Past Surgical History: None Surgical History Other: TMA ROS Dictation Wound check Physical Exam Physical Exam Dictation There is well healing wound with the micah noted left below-knee amputation with no discharge or tenderness on palpation. MDM MDM: Differential diagnosis: Rationale: Tests considered and ordered secondary to shared decision making include: Previous outside records reviewed: Old ER visits. Risk of complication and/or morbidity or mortality of patient management: None Medications-Per medication reconciliation Need for hospitalization: Patient does not meet criteria for hospitalization. Need for emergency major/minor surgery: No There are no social concerns with this patient. Prescription drug management Prescriptions will include symptomatic care Patient's prior external medical records from other ER visits were reviewed by me as indicated. Prior testing and results from previous visits were reviewed. Prior tests were taken into account with medical decision making and resource utilization, independent historian/historians were used to obtain complete medical history. I independently interpreted the test that were performed, results were reviewed by me and considered findings on radiology if ordered. Medical management and examination interpretation discussions were had by me with other qualified healthcare professionals as indicated for the patient's care. ED Course Vital Signs Date Time Temp Pulse Resp B/P (MAP) Pulse Ox O2 Delivery O2 Flow Rate FiO2 06/01/25 12:10 98.4 96 18 106/71 100 Room Air 0 DX & DISP Disposition: Discharge Departure Impression: Primary Impression: Encounter for evaluation of wound Condition: Stable Referrals: SELF,REFERRAL (PCP) ILDEFONSO WHITTAKER MD Jun 01, 2025 13:26
== END 2025-06-01 13:45 | disposition home or self-care (01) ==
LOC: EDH 12:07
DX: Z48.89 Encounter for other specified surgical aftercare (principal); E11.9 Type 2 diabetes mellitus without complications; I10 Essential (primary) hypertension; Z79.82 Long term (current) use of aspirin; Z79.84 Long term (current) use of oral hypoglycemic drugs; Z79.899 Other long term (current) drug therapy; Z89.512 Acquired absence of left leg below knee
CPT/HCPCS: 99282